=== PATIENT | female | born 1980 | race Caucasian/White ===

== ENCOUNTER 2020-05-12 13:38 | Emergency (ER) | payer OTHER, SELFPAY ==
--- NOTE | ~2020-05-12 | US_ITS ---
EXAMINATION: US pelvic complete w TV EXAM DATE: 05/12/2020 15:40 INDICATION: Heavy vaginal bleeding, cramping. TECHNIQUE: Pelvic transabdominal and transvaginal sonogram was performed. There are multiple graysca le and Doppler images available for interpretation. Comparison is made to prior examination from 10/17. FINDINGS: Uterus measures 6.5 x 4.1 x 4.5 cmwith a focal anterior myometrial region probably fibroid measuring 2 cm, and another anterior pedunculated fibroid measuring 2.5 cm. Endometrial stripe measu res 3 mm, within normal limits. There is no free pelvic fluid. Right adnexa: The ovary measures 1.6 x 0.9 x 1.3 cm and is morphologically normal. Ovarian vascular f low confirmed. Left adnexa: The ovary measures 1.4 x 1.4 x 1.7 cm and is morphologically normal. Ovarian vascular fl ow confirmed. IMPRESSION: 1. Fibroids. Reviewed, dictated and finalized at location B. IMPRESSION: 1. Fibroids.
[2020-05-12 13:50] VITALS: BP 152/92; PULSE 108; RESP 16; TEMP 36.8; O2SAT 98
--- NOTE | 2020-05-12 13:53 | ED.GENADULT ---
HPI - General Adult General Chief complaint: Vaginal Bleeding Stated complaint: vag bleed Time Seen by Provider: 05/12/20 13:53 Source: patient and family Mode of arrival: ambulatory Limitations: no limitations History of Present Illness HPI narrative: Patient is a 40-year-old female who presents for evaluation of pelvic pain and vaginal bleeding. Patient reports heavy vaginal bleeding since 3 AM this morning, she is soaking through 1 pad or 1 have a tampon approximately every half an hour to an hour consecutively for several hours. Patient denies any syncope, lightheadedness or dizziness. She states she feels slightly weak and does have a history of anemia. Patient denies recent intercourse, no history of . She typically has been getting Depo-Provera shots every 3 to 6 months to help with spotting that was refractory to treatment with oral contraceptives, she is due for the next Depo shot on Friday. Patient spoke with Dr. Manzanares's office who referred her to this facility. Patient denies any dysuria. She reports cramping lower pelvic pain which is moderate to severe in nature at times. Pt with hx of fibroids and fibroidectomy. Related Data Allergies Allergy/AdvReac Type Severity Reaction Status Date / Time Penicillins Allergy Mild Rash Verified 05/12/20 14:42 Sulfa (Sulfonamide Allergy Mild Rash Verified 05/12/20 14:42 Antibiotics) ciprofloxacin Allergy Unknown Rash Verified 05/12/20 14:42 red food color AdvReac Mild Nausea and Uncoded 05/12/20 14:42 Vomiting Review of Systems Review of Systems: Narrative: CONSTITUTIONAL: Denies fever, chills, or sweats. ENT: Denies rhinorrhea, congestion CARDIOVASCULAR: Denies chest pain RESPIRATORY: Denies cough or dyspnea. GASTROINTESTINAL: Reports pelvic pain, denies nausea, denies diarrhea GENITOURINARY: Denies dysuria or hematuria. Reports vaginal bleeding SKIN: Denies rash or itching. MUSCULOSKELETAL: Denies back pain, joint pain, or myalgia. NEUROLOGIC: Denies headache, numbness, or weakness. [facility] Past Medical History Medical History (Updated 05/12/20 @ 16:51 by Sowmya Giron MD) Anxiety Depression Fibroids Menorrhagia Surgical History Surgical History (Updated 05/12/20 @ 14:43 by Sowmya Giron MD) History of gastric bypass Social History Social History (Updated 05/12/20 @ 14:44 by Sowmya Giron MD) Smoking status: Never smoker Alcohol use details: social Substance use: never Gender identity (if verbalized by the patient): Female Exam Narrative: Exam Narrative: GENERAL: Awake, alert, conversant HEAD: Normocephalic, atraumatic. EYES: PERRLA and EOMI. ENT: Nares clear, no rhinorrhea or epistaxis. Mucous membranes moist. NECK: Supple. CHEST: No respiratory distress, breathing even and non labored HEART: Regular rate, sinus rhythm ABDOMEN:Non distended, pelvic tenderness to palpation, no guarding or rebound : Labia majora and minora normal without lesions. Vagina scant blood, no large blood clots, no brisk bleeding. No cervical motion tenderness. No adnexal tenderness or fullness bilaterally. No discharge present. EXTREMITIES: Normal range of motion. No edema. SKIN: Warm, dry, no rash. NEURO:No focal deficits. Alert and oriented x3 Course Vital Signs Vital signs: Vital Signs Temperature 36.8 C 05/12/20 13:50 Pulse Rate 108 H 05/12/20 13:50 Respiratory Rate 16 05/12/20 13:50 Blood Pressure 152/92 H 05/12/20 13:50 Pulse Oximetry 98 05/12/20 13:50 Temperature 36.8 C 05/12/20 13:50 Pulse Rate 73 05/12/20 17:01 Respiratory Rate 18 05/12/20 17:01 Blood Pressure 143/96 H 05/12/20 17:01 Pulse Oximetry 99 05/12/20 17:01 Medical Decision Making MDM Narrative Medical decision making narrative: Pt presented to the ED for evaluation of vaginal bleeding and pelvic pain. At time of assessment, abcs intact and vital signs stable. Pt with pelvic tenderness on exam, however pelvic exam is paige
[2020-05-12] MEDS: MORPHINE SULFATE 2 MG/ML INJ IV PUSH (14:53)
[2020-05-12] MEDS: ONDANSETRON INJ 4 MG/2 ML VIAL IV PUSH (14:54)
[2020-05-12 14:55] LABS: Basophils Absolute Auto 0.1 K/mm3 (0.0-0.1); Basophils Percent Auto 0.9 % (0.2-1.2); Eosinophils Absolute Auto 0.1 K/mm3 (0-0.3); Eosinophils Percent Auto 0.9 % (0-4.4); Hemoglobin 13.4 g/dL (12.0-15.0); Immature Granulocyte Absolute 0.01 K/mm3 (0.00-0.031); Immature Granulocyte Percent A 0.1 % (0-0.5); Lymphocytes Absolute Auto 2.88 K/mm3 (0.9-3.2); Mean Corpuscular HGB Conc 33.5 g/dl (32-36); Mean Corpuscular Hemoglobin 30.9 pg (26-34); Mean Corpuscular Volume 92.2 fl (80-100); Mean Platelet Volume 9.2 fl (7.4-10.4); Monocytes Absolute Auto 0.3 K/mm3 (0.1-0.6); Monocytes Percent Auto 4.8 % (2.6-8.5); Neutrophils Absolute Auto 3.5 K/mm3 (1.3-6.7); Neutrophils Percent Auto 51.3 % (45.5-73.1); Platelet Count Result 336 k/mm3 (150-375); Red Blood Count 4.34 M/mm3 (4.2-5.4); Red Cell Distribution Width 12.2 % (11.5-14.5); White Blood Count 6.9 K/mm3 (4.5-10.0)
[2020-05-12 15:00] LABS: Prothrombin Time 12.9 Seconds (11.1-14.7)
[2020-05-12 15:02] LABS: Alanine Aminotransferase 52 U/L (4-35); Albumin Level 4.5 g/dL (3.5-5.1); Alkaline Phosphatase 70 U/L (38-126); Aspartate Amino Transferase 45 U/L (14-36); Bilirubin,Total 0.6 mg/dL (0.2-1.3); Blood Urea Nitrogen 12 mg/dL (7-17); Calcium 9.4 mg/dL (8.4-10.2); Carbon Dioxide 24 mmol/L (22-30); Chloride 106 mmol/L (98-107); Estimated CRCL calculation 87 ml/min; Estimated Glomerular Filt Rate > 60; Glucose 98 mg/dL (65-105); Potassium 3.4 mmol/L (3.4-5.0); Sodium 136 mmol/L (137-145)
[2020-05-12 15:57] VITALS: BP 132/86; PULSE 57
[2020-05-12 15:58] VITALS: BP 136/101; BP 143/81; PULSE 57; PULSE 59
[2020-05-12 17:01] VITALS: BP 143/96; PULSE 73; RESP 18; O2SAT 99
[2020-05-12 17:06] LABS: Add Urine Microscopic? YES; Appearance Urine Clear (Clear); Bilirubin Urine Negative (Negative); Blood Urine 1+ (Negative); Color Urine Yellow (Yellow); Glucose Urine UA Negative (Negative); Ketones Urine 1+ mg/dL (Negative); Leukocyte Esterase Ur Negative LEU/UL (Negative); Nitrate Urine Negative (Negative); Protein Urine Negative (Negative); RBC Urine 0-2 /hpf (0-2); Squamous Epithelial Cell Urine Rare /hpf (Few); Urobilinogen Urine Negative mg/dL (<2.0); WBC Urine 0-3 /hpf
[2020-05-12 17:07] LABS: Specific Grav Ur 1.034 (1.001-1.035)
== END 2020-05-12 17:14 | disposition home or self-care (01) ==
PROVIDERS: Emergency Provider Emergency Medicine; PCP Obstetrics & Gynecology Gynecology
DX: N93.9 Abnormal uterine and vaginal bleeding, unspecified (principal); D25.9 Leiomyoma of uterus, unspecified; Z98.84 Bariatric surgery status
CPT/HCPCS: 36415; 76830; 76856; 80053; 81001; 81025; 85025; 85610; 85730; 86850; 86900; 86901; 87070; 87491; 87591; 87808; 96365; 96375; 99284; A9270; J0131; J2270; J2405

== ENCOUNTER 2020-08-06 13:14 | Emergency (ER) | payer OTHER, SELFPAY ==
--- NOTE | ~2020-08-06 | XR_ITS ---
XR shoulder RT min 2V DATE: 08/06/2020 14:00 INDICATION: Right shoulder lifting injury TECHNIQUE: 4 views COMPARISON: None FINDINGS: No fracture or dislocation, periosteal reaction or bone destruction or abnormal soft tissue calcification. Normal alignment at the acromioclavicular and glenohumeral joints. IMPRESSION: Negative Reviewed, dictated and finalized at location A. IMPRESSION: Negative
[2020-08-06 13:32] VITALS: BP 123/78; PULSE 124; RESP 16; TEMP 37.2; O2SAT 99
--- NOTE | 2020-08-06 13:40 | ED.UPPEXIN ---
HPI - Extremity Injury (Upper) General Chief Complaint: Extremity Injury, Upper Stated Complaint: RIGHT SHOULDER PAIN Time Seen by Provider: 08/06/20 13:40 Source: patient and RN notes reviewed Mode of arrival: ambulatory Limitations: no limitations History of Present Illness HPI narrative: 40-year-old female presents with concern for right shoulder pain. 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 Reports she saw a telemedicine doctor through her employer who prescribed her muscle relaxers. Reports no relief from the muscle relaxers. Reports she has been taking 1 Aleve daily with no relief. complaint: injury to: right and shoulder Related Data Home Medications Medication Instructions Recorded Confirmed clonazepam 1 mg PO DAILY 08/06/20 08/06/20 cyclobenzaprine 10 mg PO TID 08/06/20 08/06/20 naltrexone 50 mg PO DIRECTED 08/06/20 08/06/20 Allergies Allergy/AdvReac Type Severity Reaction Status Date / Time Penicillins Allergy Mild Rash Verified 08/06/20 13:28 Sulfa (Sulfonamide Allergy Mild Rash Verified 08/06/20 13:28 Antibiotics) ciprofloxacin Allergy Unknown Rash Verified 08/06/20 13:28 red food color AdvReac Mild Nausea and Uncoded 08/06/20 13:28 Vomiting Review of Systems Review of Systems: Narrative: CONSTITUTIONAL: Denies malaise, chills, sweats, or fever. CARDIOVASCULAR: Denies chest pain, palpitations, or edema. RESPIRATORY: Denies cough or dyspnea. SKIN: Denies bruising, redness MUSCULOSKELETAL: Reports right shoulder pain, decreased range of motion, weakness NEUROLOGIC: Denies numbness All systems reviewed & are unremarkable except as noted in HPI and below PMFSH Past Medical History Medical History (Updated 08/06/20 @ 14:06 by Niyah Dykes NP) Anxiety Depression Fibroids Menorrhagia Surgical History Surgical History (Updated 05/12/20 @ 14:43 by Sowmya Giron MD) History of gastric bypass Social History Social History (Updated 05/12/20 @ 14:44 by Sowmya Giron MD) Smoking status: Never smoker Substance use: never Gender identity (if verbalized by the patient): Female Comments At time of signature, agree with nursing past medical, surgical, social and family history. There is no relevant family history pertinent to the presenting complaint Exam Narrative: Exam Narrative: GENERAL: Well-appearing, well-nourished, and in no acute distress. HEAD: Normocephalic, atraumatic. EYES: PERRLA, conjunctivae clear NECK: Supple. CHEST: Speaks in full sentences. No respiratory distress. HEART: Regular rate and rhythm. Normal and equal peripheral pulses. EXTREMITIES: Right shoulder, upper arm has normal sensation, decreased range of motion. No edema or ecchymosis. 3/5 strength with shoulder abduction and abduction. Normal sensation with sensitivity to light touch and pain. No open wounds, no skin tenting, no devitalized tissue or atrophy, no trophic changes, no obvious deformity, alignment normal, no point tenderness, nearby joints and structures intact. Distal pulses palpable and equal bilaterally, skin warm, dry, pink. Capillary refill less than 3 seconds. SKIN: Warm, dry, no rash. NEURO: Alert and oriented x3. PSYCH: Normal mood and affect Course Course Emergency Course: Patient is aware of diagnosis, understands and agrees to treatment plan. Anticipatory guidance given. Patient agrees to follow-up as directed and is aware of reasons to seek care at the emergency department. Portions of this record may have been created with voice recognition software Vital Signs Vital signs: Vital Signs Temperature 98.9 F 08/06/20 13:32 Pulse Rate 124 H 08/06/20 13:32 Respiratory Rate 16 08/06/20 13:32 Blood Pressure 123/78 08/06/20 13:32 Pulse Oximetry 99 08/06/20 13:32 Temperature 98.9 F 08/06/20 13:32 Pulse Rate 124 H 08/06/20 13:32 Respiratory Rate 16
== END 2020-08-06 14:10 | disposition home or self-care (01) ==
PROVIDERS: Emergency Provider Nurse Practitioner
DX: S49.91XD Unspecified injury of right shoulder and upper arm, subsequent encounter (principal); X50.0XXD Overexertion from strenuous movement or load, subsequent encounter; F41.9 Anxiety disorder, unspecified; Z98.84 Bariatric surgery status
CPT/HCPCS: 73030; 99213; A4565; G0463

== ENCOUNTER 2020-09-09 16:49 | Emergency (ER) | payer OTHER, SELFPAY ==
[2020-09-09] VITALS (10 sets, daily range): BP systolic 108–149; BP diastolic 71–98; PULSE 86–108; RESP 12–28; TEMP 36.1; O2SAT 97–100
--- NOTE | ~2020-09-09 | CT_ITS ---
EXAMINATION: CT abdomen pelvis w con EXAM DATE: 09/09/2020 17:41 INDICATION: Left-sided abdominal pain, history gastric bypass with complication. TECHNIQUE: Spiral CT of the abdomen and pelvis was performed following intravenous injection of 100 m L Omnipaque 350. Axial, coronal and sagittal images were reviewed. The dose-length product (DLP) fo r this examination was 380.58 mGy-cm. The exposure was tailored according to patient size (auto mA e xposure control), and iterative reconstruction (ASIR) was used as additional dose reduction technique . There is no prior study for comparison. FINDINGS: There are surgical changes from gastric bypass surgery. There is edema of the jejunal wall at the gastric bypass anastomosis, along with scattered small foci of extraluminal gas adjacent to th is and also below the diaphragm. Small amount of perihepatic fluid and small amount of free fluid in the pelvis. There is some generalized abdominal edema, most pronounced in the left upper quadrant. The liver, spleen, adrenal glands and pancreas are unremarkable. Gallbladder not identified, patient likely has had cholecystectomy. Portal and splenic veins are patent. Kidneys enhance symmetrically . There is no hydronephrosis. Fibroid uterus. The bladder is unremarkable. There is no retroperi toneal or pelvic lymphadenopathy. The appendix is normal. There is expected amount of colonic stool. The heart is normal in size. Th ere are no pericardial or pleural effusions. The lung bases are unremarkable. There are no osteobla stic or osteolytic lesions identified. IMPRESSION: Jejunal edema at the gastric bypass anastomosis site, with scattered small foci of free i ntraperitoneal air adjacent to this and below the diaphragm. Appearance is suspicious for dehiscence of anastomosis. Surgical consult. I discussed the urgent findings with emergency room physician Dr. Juan at 09/09/2020 17:55 CDT. Reviewed, dictated and finalized at location A. IMPRESSION: Jejunal edema at the gastric bypass anastomosis site, with scattere d small foci of free intraperitoneal air adjacent to this and below the diaphra gm. Appearance is suspicious for dehiscence of anastomosis. Surgical consult. I discussed the urgent findings with emergency room physician Dr. Juan at 08/18 17:55 CDT.
--- NOTE | 2020-09-09 17:06 | ED.ABDPAIN ---
HPI - Abdominal Pain General Chief Complaint: Abdominal Pain Stated Complaint: left side pain Time Seen by Provider: 09/09/20 16:52 Source: patient Mode of arrival: ambulatory Limitations: no limitations History of Present Illness HPI narrative: Patient is a 40-year-old female who presents with a days duration of pain from the epigastric up into the chest with nausea 2 episodes of emesis has not taken anything for her symptoms history of bypass gastric surgery with several surgeries following the initial due to complications. Patient denies hematemesis rectal bleeding diarrhea urinary symptoms vaginal complaints or URI symptoms presents uncomfortable but in no distress has not taken anything for symptoms presents per private vehicle Related Data Home Medications Medication Instructions Recorded Confirmed clonazepam 1 mg PO DAILY 08/06/20 08/06/20 bupropion HCl (smoking deter) 150 mg PO BID 09/09/20 Allergies Allergy/AdvReac Type Severity Reaction Status Date / Time Penicillins Allergy Mild Rash Verified 09/09/20 16:57 Sulfa (Sulfonamide Allergy Mild Rash Verified 09/09/20 16:57 Antibiotics) ciprofloxacin Allergy Unknown Rash Verified 09/09/20 16:57 red (food color) AdvReac Mild Nausea and Verified 09/09/20 17:46 Vomiting Review of Systems Review of Systems: All systems reviewed & are unremarkable except as noted in HPI and below PMFSH Past Medical History Medical History Anxiety Depression Fibroids Menorrhagia Surgical History Surgical History History of gastric bypass Social History Social History Smoking status: Never smoker Substance use: never Gender identity (if verbalized by the patient): Female Exam Narrative: Exam Narrative: GENERAL: Well-appearing, well-nourished, and in no acute distress. HEAD: Normocephalic, atraumatic. EYES: PERRLA and EOMI. ENT: Nares clear, no rhinorrhea or epistaxis. Mucous membranes moist. CHEST: Clear to auscultation. No respiratory distress. No wheezes rales or rhonchi HEART: Regular rate and rhythm. No murmur heard. Normal peripheral pulses. ABDOMEN: Soft, generalized tenderness, nondistended, normal active bowel sounds. EXTREMITIES: Normal range of motion. No edema. SKIN: Warm, dry, no rash. NEURO: No focal deficits. Alert and oriented x3. PSYCH: Normal mood and affect. Course Course Emergency Course: Patient in the ER has been hydrated given pain management nausea management as well as antibiotics will be transferred to [facility] for evaluation by bariatric surgeon patient has remained hemodynamically stable in the emergency department is felt appropriate for transfer Consultations Consultation #1: Discussed case with bariatric surgeon at [facility] who has accepted the patient would like the patient transferred to the ER with Dr. [facility] who has accepted the patient. Date: 09/09/20 Time: 20:47 Vital Signs Vital signs: Vital Signs Temperature 96.9 F L 09/09/20 16:51 Pulse Rate 96 09/09/20 16:51 Respiratory Rate 20 09/09/20 16:51 Blood Pressure 124/72 09/09/20 16:51 Pulse Oximetry 98 09/09/20 16:51 Temperature 96.9 F L 09/09/20 18:40 Pulse Rate 94 09/09/20 20:04 Respiratory Rate 16 09/09/20 20:04 Blood Pressure 109/71 09/09/20 20:04 Pulse Oximetry 97 09/09/20 20:04 MDM - Abdominal Pain MDM Narrative Medical decision making narrative: Patient with complication of her bariatric surgery will be transferred to bariatric surgeon at [facility] patient hemodynamically stable has been hydrated given IV antibiotics and other therapies resting in the room in no distress agreeing to plan Lab Data Result diagrams: 09/09/20 17:02 09/09/20 17:02 Labs: Lab Results 09/09/20 09/09/2009/09
[2020-09-09 17:09] LABS: Basophils Absolute Auto 0.1 K/mm3 (0.0-0.1); Eosinophils Absolute Auto 0.2 K/mm3 (0-0.3); Eosinophils Percent Auto 2.9 % (0-4.4); Hematocrit 40.1 % (37.0-47.0); Hemoglobin 13.2 g/dL (12.0-15.0); Immature Granulocyte Absolute 0.01 K/mm3 (0.00-0.031); Immature Granulocyte Percent A 0.2 % (0-0.5); Lymphocytes Absolute Auto 2.88 K/mm3 (0.9-3.2); Lymphocytes Percent Auto 46.3 % (18.3-44.2); Mean Corpuscular HGB Conc 32.9 g/dl (32-36); Mean Corpuscular Hemoglobin 29.8 pg (26-34); Mean Corpuscular Volume 90.5 fl (80-100); Mean Platelet Volume 8.8 fl (7.4-10.4); Monocytes Absolute Auto 0.4 K/mm3 (0.1-0.6); Monocytes Percent Auto 6.1 % (2.6-8.5); Neutrophils Absolute Auto 2.7 K/mm3 (1.3-6.7); Neutrophils Percent Auto 43.5 % (45.5-73.1); Platelet Count Result 358 k/mm3 (150-375); Red Blood Count 4.43 M/mm3 (4.2-5.4); Red Cell Distribution Width 12.4 % (11.5-14.5); White Blood Count 6.2 K/mm3 (4.5-10.0)
--- NOTE | 2020-09-09 17:15 | PC.NURSE ---
Patient unable to urinate at this time, refusing straight cath. States will try to urinate after receiving IV fluids.
[2020-09-09 17:21] LABS: Alanine Aminotransferase 17 U/L (4-35); Albumin Level 4.5 g/dL (3.5-5.1); Alkaline Phosphatase 45 U/L (38-126); Anion Gap 11 mmol/L (8-16); Aspartate Amino Transferase 23 U/L (14-36); Bilirubin,Total 0.2 mg/dL (0.2-1.3); Blood Urea Nitrogen 8 mg/dL (7-17); Carbon Dioxide 27 mmol/L (22-30); Chloride 103 mmol/L (98-107); Estimated CRCL calculation 87 ml/min; Estimated Glomerular Filt Rate > 60; Glucose 119 mg/dL (65-105); Lipase 148 U/L (23-300); Potassium 4.2 mmol/L (3.4-5.0); Sodium 141 mmol/L (137-145)
[2020-09-09] MEDS: HYOSCYAMINE SULFATE 0.125 MG TABLET PO (17:21)
[2020-09-09] MEDS: FAMOTIDINE 20 MG/2 ML VIAL IV PUSH (17:21)
[2020-09-09] MEDS: ONDANSETRON INJ 4 MG/2 ML VIAL IV PUSH ×2 (17:21→20:49)
[2020-09-09] MEDS: SODIUM CHLORIDE 0.9% IV 1,000 ML 999 ML IV CONT ×2 (17:21→20:49)
[2020-09-09] MEDS: IBUPROFEN IV 800 MG/200 ML 800 MG/200 ML BAG 400 MG IVPB (17:50)
[2020-09-09] MEDS: MORPHINE SULFATE (*CRX) 4 MG/ML INJ IV PUSH ×3 (18:10→20:48)
[2020-09-09] MEDS: PANTOPRAZOLE SODIUM IV 40 MG VIAL IV PUSH (18:46)
[2020-09-09 19:24] LABS: Add Urine Microscopic? NO; Appearance Urine Clear (Clear); Bilirubin Urine Negative (Negative); Blood Urine Negative (Negative); Color Urine Straw (Yellow); Glucose Urine UA Negative (Negative); Ketones Urine Negative (Negative); Leukocyte Esterase Ur Negative LEU/UL (Negative); Nitrate Urine Negative (Negative); Protein Urine Negative (Negative); Urobilinogen Urine Negative mg/dL (<2.0)
[2020-09-09 19:36] LABS: Specific Grav Ur 1.038 (1.001-1.035)
[2020-09-09] MEDS: ERTAPENEM 1 GM/NS 50 ML 1 GM/50 ML BAG IVPB (20:49)
--- NOTE | 2020-09-09 21:50 | PC.NURSE ---
Called [facility] to request transport. ETA [phone]
[2020-09-09] MEDS: HYDROmorphone HCL INJ (*CRX) 1 MG/ML SYR IV PUSH (22:06)
== END 2020-09-09 22:42 | disposition short-term general hospital (02) ==
PROVIDERS: Emergency Medicine Emergency Medical Services; Emergency Provider Emergency Medicine
DX: T81.32XA Disruption of internal operation (surgical) wound, not elsewhere classified, initial encounter (principal); K91.89 Other postprocedural complications and disorders of digestive system; Z98.84 Bariatric surgery status; F41.9 Anxiety disorder, unspecified; F32.9 Major depressive disorder, single episode, unspecified
CPT/HCPCS: 36415; 74177; 80053; 81003; 81025; 83690; 85025; 96365; 96367; 96375; 96376; 99285; A9270; C9113; J0131; J1170; J1335; J1741; J2270; J2405; J7030; Q9967

== ENCOUNTER 2020-09-19 12:37 | Outpatient (CLI) | payer OTHER, SELFPAY ==
--- NOTE | ~2020-09-19 | MR_ITS ---
EXAMINATION: MR brain/brain stem wo con EXAM DATE: 09/19/2020 13:44 INDICATION: Cognitive impairment. TECHNIQUE: Magnetic resonance imaging (MRI) of the brain/brain stem obtained without contrast. Sagitt al T1, axial diffusion, gradient echo (T2*), T1, T2, FLAIR sequences obtained. Correlation is made t o head CT 2017. FINDINGS: There are no areas of restricted diffusion to suggest acute infarction. There is no acute hemorrhage seen on the T2*, a hemosiderin sensitive sequence. No intraparenchymal brain mass. The ve ntricles are normal in size. There are no extra-axial collections. Flow voids are seen in the cereb ral arteries on the T2-weighted sequences consistent with their expected patency. The orbits are unr emarkable. Soft tissue is unremarkable. IMPRESSION: 1. Normal brain MRI examination. Reviewed, dictated and finalized at location B. [employer]
== END 2020-09-19 12:38 | disposition home or self-care (01) ==
PROVIDERS: Visit Provider Nurse Practitioner Family
DX: G31.84 Mild cognitive impairment of uncertain or unknown etiology (principal); R63.1 Polydipsia; Z86.39 Personal history of other endocrine, nutritional and metabolic disease
CPT/HCPCS: 70551

== ENCOUNTER 2021-09-17 01:40 | Day surgery (SDC) | payer OTHER, SELFPAY ==
[2021-09-06 14:08] VITALS: BMI 23.3
--- NOTE | 2021-09-17 07:31 | WPDHPUPDATE1 ---
History and Physical Update Update Date/Time: 09/17/21 07:31 History and Physical has been reviewed, including an updated exam of the patient. There are NO changes in the patient's condition. Risks, benefits, and alternatives have been discussed and questions answered. Patient agrees to proceed with procedure.
--- NOTE | 2021-09-17 07:31 | PM.HPGS ---
History of Present Illness History of Present Illness Consent: Risks, benefits, and alternatives have been discussed and questions answered. Patient agrees to proceed with procedure. Chief complaint: YESSY 1 Narrative: Niyah Shay is a 41 year old female with recent Pap smear atypical squamous cells cannot exclude high-grade squamous intraepithelial lesion and normal colposcopy. Patient has a history of mild dysplasia on biopsy in May of 2021. Due to the Pap colposcopy discrepancy and persistent abnormal Pap tests the patient has elected to proceed with LEEP conization with top-hat. Risk of persistent disease and recurrent disease postop was reviewed. Procedure risks infection, bleeding, and injury to surrounding tissue was reviewed. Patient voiced understanding and agrees to proceed. Review of Systems Review of Systems: not repeated day of surgery; patient states no changes in status Constitutional: Constitutional: Reports fatigue Musculoskeletal: Musculoskeletal: Reports arthralgias PMFSH Past Medical History Medical History (Updated 09/17/21 @ 07:39 by Annalise Manzanares MD) Anxiety Depression Fibroids Fibromyalgia Perforated ulcer stomach 2019 Surgical History Surgical History (Updated 09/17/21 @ 07:37 by Annalise Manzanares MD) History of gastric bypass Hx laparoscopic cholecystectomy S/P myomectomy Abdominal 2012 Social History Social History Years smoked: 15 Smoking status: Former smoker Tobacco type: cigarettes and e-cigarettes/vaping Second hand tobacco smoke exposure: No Additional smoking assessment comments: currently vapes w/ nicotine Alcohol intake: current Drinks per week: 2 Alcohol use details: beer or wine; occassionally Substance use: never Substance use type: does not use Living arrangements: other Additional living arrangements comments: significant other Gender identity (if verbalized by the patient): Female Spiritual care concerns: No Meds Home Medications and Allergies Home Medications Medication Instructions Recorded Confirmed Type clonazepam 1 mg PO DAILY 08/06/20 09/06/21 History acetaminophen [Tylenol] 650 mg PO Q4-6H PRN 09/06/21 09/06/21 History bupropion HCl 150 mg PO BID 09/06/21 09/06/21 History medroxyprogesterone 150 mg IM [id number] 09/06/21 09/06/21 History ybuhcykcxxbb-kez-eabq-FA-vit K 1 cap PO DAILY 09/06/21 09/06/21 History [Bariatric Multivitamins] omeprazole 20 mg PO BID 09/06/21 09/06/21 History sertraline 100 mg PO DAILY 09/06/21 09/06/21 History Allergies Allergy/AdvReac Type Severity Reaction Status Date / Time ciprofloxacin Allergy Mild Rash Verified 09/06/21 14:02 Penicillins Allergy Mild Rash Verified 09/06/21 14:02 Sulfa (Sulfonamide Allergy Mild Rash Verified 09/06/21 14:02 Antibiotics) red (food color) AdvReac Mild Nausea and Verified 09/06/21 14:02 Vomiting Exam Const: General: comfortable and no acute distress Nutritional Appearance: average body habitus : External Female Exam: normal external appearance Speculum Exam - Vagina: normal appearance of the vagina Speculum Exam - Cervix: normal appearance of the cervix (Aceto-white epithelium from 6 to 7 o'clock) Bimanual exam- vagina & uterus: normal bimanual exam Assessment and Plan Assessment and plan (1) ASCUS with positive high risk HPV: Status: Acute Assessment and Plan: Plan to proceed with LEEP conization with top hat
[2021-09-17 09:18] LABS: Hematocrit 36.7 % (37.0-47.0); Hemoglobin 11.9 g/dL (12.0-15.0)
[2021-09-17 09:25] VITALS: BP 118/80; PULSE 73; RESP 14; TEMP 37.1; O2SAT 100; BMI 24.9
[2021-09-17] MEDS: ACETAMINOPHEN 500 MG TABLET 1000 MG PO (09:40)
[2021-09-17] MEDS: MIDAZOLAM HCL (*CRX) 2 MG/2 ML VIAL IV PUSH (09:40)
--- NOTE | 2021-09-17 09:42 | WPDANESEPPF ---
Anes - Initial Pre Proc Eval Procedure: Operation Date: 09/17/21 10:30 Proposed Procedures p Loop Electrical Excision Procedure With Top Hat - Annalise Manzanares MD Date/Time: 09/17/21 09:42 Surgeon: Annalise Manzanares MD Pre Op Diagnosis: YESSY 1 Patient Data Age: 41 Gender: F Height: 1.68 m Weight: 70 kg Last Vital Signs Temp 37.1 C 09/17/21 09:25 Pulse 73 09/17/21 09:25 Resp 14 09/17/21 09:25 BP 118/80 09/17/21 09:25 Pulse Ox 100 09/17/21 09:25 Allergies Allergy/AdvReac Type Severity Reaction Status Date / Time ciprofloxacin Allergy Mild Rash Verified 09/17/21 08:55 Penicillins Allergy Mild Rash Verified 09/17/21 08:55 Sulfa (Sulfonamide Allergy Mild Rash Verified 09/17/21 08:55 Antibiotics) red (food color) AdvReac Mild Nausea and Verified 09/17/21 08:55 Vomiting Home Medications Medication Instructions Recorded Confirmed Type clonazepam 1 mg PO DAILY 08/06/20 09/06/21 History acetaminophen [Tylenol] 650 mg PO Q4-6H PRN 09/06/21 09/06/21 History bupropion HCl 150 mg PO BID 09/06/21 09/06/21 History medroxyprogesterone 150 mg IM [id number] 09/06/21 09/06/21 History naxnctxblmxz-tti-cxlw-FA-vit K 1 cap PO DAILY 09/06/21 09/06/21 History [Bariatric Multivitamins] omeprazole 20 mg PO BID 09/06/21 09/06/21 History sertraline 100 mg PO DAILY 09/06/21 09/06/21 History Laboratory Tests 09/17/21 09:13 Hgb 11.9 g/dL L g/dL (12.0-15.0) Hct 36.7 % L % (37.0-47.0) Patient hx anesthesia problems: none Family hx anesthesia problems: none Results Review: All pre-operative results and documents have been reviewed as part of the pre-operative evaluation. [facility] Past Medical History Medical History Anxiety Depression Fibroids Fibromyalgia Perforated ulcer stomach 2019 Surgical History Surgical History History of gastric bypass Hx laparoscopic cholecystectomy S/P myomectomy Abdominal 2013 Social History Social History Years smoked: 15 Smoking status: Former smoker Tobacco type: cigarettes and e-cigarettes/vaping Second hand tobacco smoke exposure: No Additional smoking assessment comments: currently vapes w/ nicotine Alcohol intake: current Drinks per week: 2 Alcohol use details: beer or wine; occassionally Substance use: never Substance use type: does not use Living arrangements: other Additional living arrangements comments: significant other Gender identity (if verbalized by the patient): Female Spiritual care concerns: No Anes - Eval Final PreProcedure Day of Procedure 09/17/21 09:42 Patient weight: normal Heart: regular rate and rhythm Lungs: clear to auscultation Airway: Mallampati scale class II Neurological: alert and oriented Last oral intake: >/= 8 hours ASA classification: III Emergent: no Anesthetic plan: proceed Anesthesia type and monitoring: general GIVS and standard monitoring Results Review: All pre-operative results and documents have been reviewed as part of the pre-operative evaluation. Informed Consent: The patient's anesthetic plan and its attendant risks and benefits were discussed with the patient/family/POA. Questions were solicited and answers provided to the satisfaction of the patient/family/POA.
[2021-09-17] MEDS: LACTATED RINGERS 1,000 ML 30 ML IV CONT (09:48)
[2021-09-17] MEDS: LIDO 1%/EPINEPHRINE/PF 1:200,000 30 ML VIAL 10 ML XX (10:50)
--- NOTE | 2021-09-17 10:58 | W.PM.PROC2 ---
Procedure Note - Detailed Date of Procedure 09/17/21 Pre-op Diagnosis ASC-H pap with normal colposcopy pap/colposcopy discrepency Post-op Diagnosis same Procedure Performed LEEP with a top hat Surgeon Annalise Manzanares MD Anesthesia MAC and local Findings No abnormalities by colposcopy Description of Procedure The patient was taken to the operating room and placed under anesthesia in the dorsal lithotomy position. Coated bivalve speculum was placed in the vagina and the cervix is bathed in acetic acid. The cervix was inspected with the microscope and the green filter and no abnormalities are noted. The cervix is injected with 1% lidocaine with epinephrine in each quadrant. The 2x1cm loop was then used to perform a single pass LEEP with 60 w of cutting power. The lateral aspects of the loop collapsed inward making the endocervix not visible. A wider 2x1cm loop was taken and the smaller loop was placed within it to keep the anatomical position correct. These are sutured together at 12:00 p.m.. Now that the endocervix is visible a 1x1cm loop is used to perform a single pass top hat. There is an additional small piece of cervix that fell into the speculum and is marked miscellaneous cervix. Monsel's solution is placed on the cone bed and the patient awakened from anesthesia. She was taken to recovery in stable condition. Sponge, needle, and instrument counts are correct. Estimated Blood Loss 5 Drains No Packing No Pathology yes (LEEP marked at 12:00 p.m. composed of 2 components (see above); top hat marked at 12) Complications No immediate complications Condition stable Disposition PACU
[2021-09-17 11:02] VITALS: BP 103/65; PULSE 71; RESP 16; O2SAT 99
[2021-09-17] MEDS: fentaNYL CITRATE INJ (*CRX) 100 MCG/2 ML VIAL 25 MCG IV PUSH ×4 (11:15→12:10)
[2021-09-17 11:30] VITALS: BP 111/69; PULSE 73
[2021-09-17] MEDS: oxyCODONE HCL (*CRX) 5 MG TAB IR PO (11:41)
[2021-09-17 12:00] VITALS: BP 105/68; PULSE 72
--- NOTE | 2021-09-17 12:17 | SUR.PHASEII ---
Paged Dr. Manzanares since she forgot to call family after procedure. She relayed to me what to to tell them and apologized for not calling them after.
[2021-09-17] MEDS: ONDANSETRON INJ 4 MG/2 ML VIAL IV PUSH (12:27)
[2021-09-17 12:30] VITALS: BP 105/68; PULSE 72; RESP 16
== END 2021-09-17 12:32 | disposition home or self-care (01) ==
PROVIDERS: Anesthesiology; PCP Pediatrics; Visit Provider Obstetrics & Gynecology Gynecology
PROC: 0UBC7ZZ Excision of Cervix, Via Natural or Artificial Opening (ICD-10-PCS; CPT 57522; principal; 2021-09-17 10:30)
DX: N87.0 Mild cervical dysplasia (principal); R87.810 Cervical high risk human papillomavirus (HPV) DNA test positive; F41.8 Other specified anxiety disorders; M79.7 Fibromyalgia; Z87.891 Personal history of nicotine dependence; Z98.84 Bariatric surgery status
CPT/HCPCS: 57522; 36415; 85014; 85018; 88305; A9270; J2250; J2405; J2704; J3010; J7120

== ENCOUNTER 2022-07-29 13:12 | Emergency (ER) | payer OTHER, SELFPAY ==
[2022-07-29 13:27] VITALS: BP 140/88; PULSE 100; RESP 14; TEMP 36.6; O2SAT 100
[2022-07-29 15:07] LABS: Hematocrit 39.1 % (37.0-47.0); Hemoglobin 12.4 g/dL (12.0-15.0); Immature Platelet Fraction Pct 2.1 % (0.9-11.2); Mean Corpuscular HGB Conc 31.7 g/dl (32-36); Mean Corpuscular Hemoglobin 31.4 pg (26-34); Mean Platelet Volume 9.4 fl (7.4-10.4); Platelet Count Result 468 k/mm3 (150-375); Red Blood Count 3.95 M/mm3 (4.2-5.4); White Blood Count 5.5 K/mm3 (4.5-10.0)
[2022-07-29 15:27] LABS: Appearance Urine Clear (Clear); Bilirubin Urine Negative (Negative); Blood Urine Negative (Negative); Color Urine Yellow (Yellow); Glucose Urine UA Negative (Negative); Ketones Urine Negative (Negative); Leukocyte Esterase Ur Negative LEU/UL (Negative); Nitrate Urine Negative (Negative); Protein Urine Negative (Negative); Specific Grav Ur <= 1.005 (1.001-1.035); Urobilinogen Urine 0.2 mg/dL (<2.0)
[2022-07-29 15:30] LABS: Add Urine Microscopic? NO
[2022-07-29 15:40] LABS: Band Neutrophils Percent 1 % (0-6); Lymphocytes Absolute Manual 1.87 K/mm3 (1.1-4.5); Monocytes Absolute Manual 0.33 K/mm3 (0.1-0.90); Monocytes Percent Manual 6 % (3-9); Neutrophils Percent Manual 59 % (46-73); Total Cells Counted 100
[2022-07-29 15:42] VITALS: BP 138/105; PULSE 75; RESP 18
[2022-07-29 15:42] LABS: Platelet Estimate Increased (Adequate)
[2022-07-29 15:43] LABS: Hypochromasia 1+ (NORMAL)
[2022-07-29] MEDS: BELLADONNA ALK/PHENOB ELIX 10 ML, MAG HYDROX/ALUMINUM HYD/SIMETH 30 ML, LIDOCAINE HCL 2... PO (16:35)
[2022-07-29 16:41] LABS: Alanine Aminotransferase 16 U/L (6-35); Albumin Level 4.4 g/dL (3.5-5.1); Alkaline Phosphatase 71 U/L (38-126); Anion Gap 11 mmol/L (8-16); Aspartate Amino Transferase 24 U/L (14-36); Bilirubin,Total 0.3 mg/dL (0.2-1.3); Blood Urea Nitrogen 5 mg/dL (7-17); Calcium 9.3 mg/dL (8.4-10.2); Carbon Dioxide 22 mmol/L (22-30); Chloride 106 mmol/L (98-107); Estimated CRCL calculation 85 ml/min; Estimated Glomerular Filt Rate > 60; Glucose 86 mg/dL (65-110); Lipase 159 U/L (23-300); Potassium 3.3 mmol/L (3.4-5.0); Sodium 139 mmol/L (137-145)
--- NOTE | 2022-07-29 17:12 | ED.NAVMDI ---
HPI - Nausea/Vomiting/Diarrhea General Chief complaint: Nausea/Vomiting/Diarrhea Stated complaint: nausea, vomiting Time Seen by Provider: 07/29/22 15:37 History of Present Illness HPI Narrative: Patient is a 42-year-old female who presents ER with burning epigastric pain going up into her throat. Patient was recently diagnosed with a gastric ulcer and placed on Protonix 40 mg twice daily as well as small misoprostol. She has been taking it for 3 days and is still experiencing discomfort. They gave her the name of a GI physician to follow-up with but she is not scheduled till later in the month. She reports she is having dry heaving. No syncope. No fevers or chills or sweats. She had some constipation earlier in the week and then took a stool softener and started having diarrhea. She thinks she may have had blood in her stool one-point that it was in between bright red and dark black. She is not on blood thinners. She does not take NSAIDs. She has history of gastric bypass surgery and has had a perforated ulcer in the past. Related Data Home Medications Medication Instructions Recorded Confirmed clonazepam 1 mg tablet 1 mg PO DAILY 08/06/20 09/06/21 acetaminophen 325 mg capsule 650 mg PO Q4-6H PRN Pain 09/06/21 09/06/21 (Tylenol) bupropion HCl 150 mg tablet,12 hr 150 mg PO BID 09/06/21 09/06/21 sustained-release medroxyprogesterone 150 mg/mL 150 mg IM [id number] 09/06/21 09/06/21 intramuscular syringe [id number] 45 mg-folic 1 cap PO DAILY 09/06/21 09/06/21 acid 800 mcg-vit K 120 mcg capsule (Bariatric Multivitamins) omeprazole 20 mg capsule,delayed 20 mg PO BID 09/06/21 09/06/21 release sertraline 100 mg tablet 100 mg PO DAILY 09/06/21 09/06/21 Allergies Allergy/AdvReac Type Severity Reaction Status Date / Time ciprofloxacin Allergy Mild Rash Verified 09/17/21 08:55 Penicillins Allergy Mild Rash Verified 09/17/21 08:55 Sulfa (Sulfonamide Allergy Mild Rash Verified 09/17/21 08:55 Antibiotics) red (food color) AdvReac Mild Nausea and Verified 09/17/21 08:55 Vomiting Review of Systems Review of Systems: All systems reviewed & are unremarkable except as noted in HPI and below Constitutional: Constitutional: Denies chills and Denies fever(s) ENT: Denies nasal congestion and Denies sore throat Cardiovascular: Cardiovascular: Denies chest pain, Denies rapid heart rate and Denies radiating jaw, neck or arm pain Respiratory: Respiratory: Denies cough and Denies dyspnea Gastrointestinal: Gastrointestinal: Reports abdominal pain, Reports constipation, Reports heartburn, Reports diarrhea, Reports nausea and Reports vomiting Genitourinary: Genitourinary: Denies nocturia and Denies dysuria [facility] Past Medical History Medical History Anxiety Depression Fibroids Fibromyalgia Perforated ulcer stomach 2019 Surgical History Surgical History History of gastric bypass Hx laparoscopic cholecystectomy S/P myomectomy Abdominal 2013 Social History Social History Years smoked: 15 Smoking status: Former smoker Tobacco type: cigarettes and e-cigarettes/vaping Second hand tobacco smoke exposure: No Additional smoking assessment comments: currently vapes w/ nicotine Alcohol intake: current Drinks per week: 2 Alcohol use details: beer or wine; occassionally Substance use: never Substance use type: does not use Additional living arrangements comments: significant other Gender identity (if verbalized by the patient): Female Spiritual care concerns: No Exam Narrative: GENERAL: Well-appearing, well-nourished, and in no acute distress. HEAD: Normocephalic, atraumatic. CHEST: Clear to auscultation. No respiratory distress. HEART: Regular rate and rhythm. Normal peripheral pulses. ABDOMEN: Soft, nontend
[2022-07-29 17:30] VITALS: BP 147/70; PULSE 78; RESP 18; O2SAT 99
[2022-07-29] MEDS: ALPRAZolam (*CRX) 0.5 MG TABLET PO (17:30)
[2022-07-29 18:20] VITALS: BP 130/92; PULSE 92; RESP 16; TEMP 36.8; O2SAT 100
== END 2022-07-29 18:22 | disposition home or self-care (01) ==
PROVIDERS: Emergency Provider Emergency Medicine; PCP Pediatrics
DX: K21.9 Gastro-esophageal reflux disease without esophagitis (principal); F41.9 Anxiety disorder, unspecified; F32.A Depression, unspecified; M79.7 Fibromyalgia; Z98.84 Bariatric surgery status; F17.290 Nicotine dependence, other tobacco product, uncomplicated
CPT/HCPCS: 36415; 80053; 81003; 81025; 83690; 85025; 85055; 99283; A9270

== ENCOUNTER 2022-12-10 08:35 | Outpatient (CLI) | payer OTHER, SELFPAY ==
[2022-12-10 11:01] LABS: Basophils Absolute Auto 0.1 K/mm3 (0.0-0.1); Basophils Percent Auto 0.7 % (0.2-1.2); Eosinophils Absolute Auto 0.1 K/mm3 (0-0.3); Hematocrit 44.7 % (37.0-47.0); Hemoglobin 14.2 g/dL (12.0-15.0); Immature Granulocyte Absolute 0.01 K/mm3 (0.00-0.031); Immature Granulocyte Percent A 0.1 % (0-0.5); Lymphocytes Absolute Auto 1.77 K/mm3 (0.9-3.2); Lymphocytes Percent Auto 25.8 % (18.3-44.2); Mean Corpuscular HGB Conc 31.8 g/dl (32-36); Mean Corpuscular Hemoglobin 29.5 pg (26-34); Mean Corpuscular Volume 92.9 fl (80-100); Mean Platelet Volume 9.9 fl (7.4-10.4); Monocytes Absolute Auto 0.4 K/mm3 (0.1-0.6); Monocytes Percent Auto 5.8 % (2.6-8.5); Neutrophils Absolute Auto 4.6 K/mm3 (1.3-6.7); Neutrophils Percent Auto 66.6 % (45.5-73.1); Platelet Count Result 349 k/mm3 (150-375); Red Blood Count 4.81 M/mm3 (4.2-5.4); White Blood Count 6.9 K/mm3 (4.5-10.0)
[2022-12-10 11:11] LABS: Cholesterol 217 mg/dL (0-200); HDL Direct 85 mg/dL; Triglycerides 117 mg/dL (<150)
[2022-12-10 11:22] LABS: LDL Cholesterol Direct 75 mg/dL
[2022-12-10 11:43] LABS: Thyroid Stimulating Hormone 0.623 uIU/mL (0.465-4.680)
[2022-12-10 11:53] LABS: Hemoglobin A1C 5.3 % (<5.7)
[2022-12-10 13:31] LABS: Vitamin D 25 Hydroxy 16.5 ng/mL
[2022-12-10 14:04] LABS: Hepatitis C Virus Antibody Negative (Negative)
[2022-12-11 13:54] LABS: Rapid Plasma Reagin Non-Reactive (NonReactive)
[2022-12-14 08:47] LABS: HSV 1 IgM Screen Negative (Negative); HSV 2 IgM Screen Negative (Negative)
== END 2022-12-10 08:36 | disposition home or self-care (01) ==
LOC: ANHLAB 08:38
PROVIDERS: PCP Pediatrics
DX: Z51.81 Encounter for therapeutic drug level monitoring (principal); Z79.899 Other long term (current) drug therapy; F10.20 Alcohol dependence, uncomplicated
CPT/HCPCS: 36415; 80061; 82306; 83036; 84443; 85025; 86592; 86695; 86696; 86803; 87491; 87591; 87661

== ENCOUNTER 2023-10-03 00:30 | Day surgery (SDC) | payer OTHER, SELFPAY ==
[2023-09-26 13:55] VITALS: BMI 31.4
--- NOTE | 2023-10-01 09:54 | SUR.PREOP ---
Patient called regarding upcoming procedure. Reviewed preop instructions, appointment times, and procedure prep.
[2023-10-03 10:32] VITALS: BP 97/71; PULSE 91; RESP 18; TEMP 36.6; O2SAT 98; BMI 32.0
--- NOTE | 2023-10-03 10:34 | SUR.PREOP ---
Patient requesting something for anxiety while waiting in preop. Notified Dr. Quick.
--- NOTE | 2023-10-03 10:42 | PM.HPGS ---
History of Present Illness History of Present Illness Consent: Risks, benefits, and alternatives have been discussed and questions answered. Patient agrees to proceed with procedure. Chief complaint: abdominal pain, HX Francesca-en-Y gastric bypass Narrative: Niyah Shay is a 43 year old female Presents for EGD on referral from Dr. Reeder. patient had a gastric bypass surgery 10 years ago when it you to a. She apparently has had multiple follow-up surgeries because of complications. Previously followed elsewhere. She apparently has had abdominal pain associated with esophagitis over the last 1 month. She does have a prior history of cholecystectomy. An EGD is requested because of her ongoing epigastric and chest pain. Patient denies any dysphagia. Denies any bleeding. she states that at 1 point she had a perforated ulcer. No old records accompany her aside from an ultrasound that is essentially unremarkable and shows previous cholecystectomy. Review of Systems Review of Systems: Review of systems noncontributory. [facility] Past Medical History Medical History (Updated 10/03/23 @ 10:44 by Los Ballesteros MD) Anxiety Depression Fibroids Fibromyalgia Perforated ulcer stomach 2019 Surgical History Surgical History (Updated 10/03/23 @ 10:44 by Los Ballesteros MD) History of gastric bypass Hx laparoscopic cholecystectomy S/P myomectomy Abdominal 2012 Social History Social History Smoking packs per day: 0.5 Smoking cigarettes per day: 10.0 Years smoked: 6 Smoking pack-years: 3.00 Smoking status: Current every day smoker Tobacco type: cigarettes and e-cigarettes/vaping Second hand tobacco smoke exposure: No Additional smoking assessment comments: STARTED VAPING IN 2018 Alcohol intake: never Drinks per week: 2 Alcohol use details: beer or wine; occassionally Substance use: former Substance use type: does not use Living arrangements: with family Additional living arrangements comments: significant other Gender identity (if verbalized by the patient): Female Spiritual care concerns: No Meds Home Medications and Allergies Home Medications Medication Instructions Recorded Confirmed Type acetaminophen 325 mg capsule 650 mg PO Q4-6H PRN Pain 09/06/21 10/03/23 History (Tylenol) medroxyprogesterone 150 mg/mL 150 mg IM [id number] 09/06/21 10/03/23 History intramuscular syringe omeprazole 20 mg capsule,delayed 20 mg PO DAILY 09/06/21 10/03/23 History release bupropion HCl 200 mg tablet,12 hr 200 mg PO BID 09/26/23 10/03/23 History sustained-release clonazepam 2 mg tablet 2 mg PO BID 09/26/23 10/03/23 History cyanocobalamin (vitamin B-12) 1,000 mcg IM Q1M MONTHLY 09/26/23 10/03/23 History 1,000 mcg/mL injection solution ergocalciferol (vitamin D2) 1,250 50,000 unit PO WEEKLY 09/26/23 10/03/23 History mcg (50,000 unit) capsule ferrous sulfate 325 mg (65 mg 325 mg PO BID 09/26/23 10/03/23 History iron) tablet gabapentin 600 mg tablet 600 mg PO TID 09/26/23 10/03/23 History ondansetron 4 mg disintegrating 4 mg PO Q4-6H PRN Nausea And 09/26/23 10/03/23 History tablet Vomiting rizatriptan 10 mg disintegrating 10 mg PO DAILY PRN Headache 09/26/23 10/03/23 History tablet tizanidine 4 mg tablet 4 mg PO TID PRN FIBROMYALGIA 09/26/23 10/03/23 History trazodone 50 mg tablet 50 - 150 mg PO HS PRN Insomnia 09/26/23 10/03/23 History zolpidem 10 mg tablet 10 mg PO HS 09/26/23 10/03/23 History Allergies Allergy/AdvReac Type Severity Reaction Status Date / Time Penicillins Allergy Severe Swelling Verified 10/03/23 10:30 of Lip/Tongue/Throat Sulfa (Sulfonamide Allergy Intermediate Hives Verified 10/03/23 10:30 Antibiotics) ciprofloxacin Allergy Mild Hives Verified 10/03/23 10:30 red (food color) AdvReac Intermediate Nausea and Verified 10/03/23 10:30 Vomiting Vital Signs Vital Signs -
[2023-10-03] MEDS: LACTATED RINGERS 1,000 ML 150 ML IV CONT (11:05)
--- NOTE | 2023-10-03 11:21 | WPDANESEPPF ---
Anes - Initial Pre Proc Eval Procedure: Operation Date: 10/03/23 11:00 Proposed Procedures p Esophagogastroduodenoscopy - Los Ballesteros MD Date/Time: 10/03/23 11:21 Surgeon: Los Ballesteros MD Pre Op Diagnosis: abdominal pain, HX Francesca-en-Y gastric bypass Patient Data Age: 43 Gender: F Height: 1.68 m Weight: 90 kg Last Vital Signs Temp 97.8 F 10/03/23 10:32 Pulse 91 10/03/23 10:32 Resp 18 10/03/23 10:32 BP 97/71 L 10/03/23 10:32 Pulse Ox 98 10/03/23 10:32 O2 Del Method Room Air 10/03/23 10:32 Allergies Allergy/AdvReac Type Severity Reaction Status Date / Time Penicillins Allergy Severe Swelling Verified 10/03/23 10:30 of Lip/Tongue/Throat Sulfa (Sulfonamide Allergy Intermediate Hives Verified 10/03/23 10:30 Antibiotics) ciprofloxacin Allergy Mild Hives Verified 10/03/23 10:30 red (food color) AdvReac Intermediate Nausea and Verified 10/03/23 10:30 Vomiting Home Medications Medication Instructions Recorded Confirmed Type acetaminophen 325 mg capsule 650 mg PO Q4-6H PRN Pain 09/06/21 10/03/23 History (Tylenol) medroxyprogesterone 150 mg/mL 150 mg IM [id number] 09/06/21 10/03/23 History intramuscular syringe omeprazole 20 mg capsule,delayed 20 mg PO DAILY 09/06/21 10/03/23 History release bupropion HCl 200 mg tablet,12 hr 200 mg PO BID 09/26/23 10/03/23 History sustained-release clonazepam 2 mg tablet 2 mg PO BID 09/26/23 10/03/23 History cyanocobalamin (vitamin B-12) 1,000 mcg IM Q1M MONTHLY 09/26/23 10/03/23 History 1,000 mcg/mL injection solution ergocalciferol (vitamin D2) 1,250 50,000 unit PO WEEKLY 09/26/23 10/03/23 History mcg (50,000 unit) capsule ferrous sulfate 325 mg (65 mg 325 mg PO BID 09/26/23 10/03/23 History iron) tablet gabapentin 600 mg tablet 600 mg PO TID 09/26/23 10/03/23 History ondansetron 4 mg disintegrating 4 mg PO Q4-6H PRN Nausea And 09/26/23 10/03/23 History tablet Vomiting rizatriptan 10 mg disintegrating 10 mg PO DAILY PRN Headache 09/26/23 10/03/23 History tablet tizanidine 4 mg tablet 4 mg PO TID PRN FIBROMYALGIA 09/26/23 10/03/23 History trazodone 50 mg tablet 50 - 150 mg PO HS PRN Insomnia 09/26/23 10/03/23 History zolpidem 10 mg tablet 10 mg PO HS 09/26/23 10/03/23 History Patient hx anesthesia problems: none Family hx anesthesia problems: none Results Review: All pre-operative results and documents have been reviewed as part of the pre-operative evaluation. [facility] Past Medical History Medical History (Updated 10/03/23 @ 10:44 by Los Ballesteros MD) Anxiety Depression Fibroids Fibromyalgia Perforated ulcer stomach 2019 Surgical History Surgical History (Updated 10/03/23 @ 10:44 by Los Ballesteros MD) History of gastric bypass Hx laparoscopic cholecystectomy S/P myomectomy Abdominal 2013 Social History Social History Smoking packs per day: 0.5 Smoking cigarettes per day: 10.0 Years smoked: 6 Smoking pack-years: 3.00 Smoking status: Current every day smoker Tobacco type: cigarettes and e-cigarettes/vaping Second hand tobacco smoke exposure: No Additional smoking assessment comments: STARTED VAPING IN 2019 Alcohol intake: never Drinks per week: 2 Alcohol use details: beer or wine; occassionally Substance use: former Substance use type: does not use Living arrangements: with family Additional living arrangements comments: significant other Gender identity (if verbalized by the patient): Female Spiritual care concerns: No Anes - Eval Final PreProcedure Day of Procedure 10/03/23 11:21 Patient weight: normal Heart: regular rate and rhythm Lungs: clear to auscultation Airway: Mallampati scale class II Neurological: alert and oriented Last oral intake: >/= 8 hours ASA classification: II Emergent: no Anesthetic plan: proceed Anesthesia type and monitoring: general GIVS and standa
[2023-10-03 11:37] VITALS: BP 120/75; PULSE 79; RESP 21; O2SAT 95
[2023-10-03 11:47] VITALS: BP 116/82; PULSE 74; RESP 20; O2SAT 96
[2023-10-03 11:54] VITALS: BP 122/89; PULSE 79; RESP 18; O2SAT 100
== END 2023-10-03 11:59 | disposition home or self-care (01) ==
PROVIDERS: PCP Pediatrics; Visit Provider Internal Medicine Gastroenterology
PROC: 0DJ08ZZ Inspection of Upper Intestinal Tract, Via Natural or Artificial Opening Endoscopic (ICD-10-PCS; CPT 43235; principal; 2023-10-03 11:00)
DX: R10.13 Epigastric pain (principal); Z98.84 Bariatric surgery status; F41.9 Anxiety disorder, unspecified; F32.A Depression, unspecified; F17.290 Nicotine dependence, other tobacco product, uncomplicated; Z90.49 Acquired absence of other specified parts of digestive tract
CPT/HCPCS: 43239; 87081; J2001; J2250; J2704; J7120

== ENCOUNTER 2024-08-25 17:36 | Emergency (ER) | payer OTHER, SELFPAY ==
--- NOTE | ~2024-08-25 | XR_ITS ---
HISTORY: ESOPHAGEAL PAIN COMPARISON: None TECHNIQUE: 2 views of the soft tissues of the neck were performed FINDINGS: Normal delineation of the pharynx, larynx and trachea. Paravertebral soft tissues demonstrate normal width. No evidence of radiopaque foreign bodies or gas within the soft tissues. Cervical spine vertebral bodies have normal height and alignment. IMPRESSION: Unremarkable plain film evaluation of the soft tissues of the neck, as detailed above. Reviewed, dictated and finalized at location A.
--- NOTE | ~2024-08-25 | CT_ITS ---
CLINICAL INDICATION: Gastric bypass surgery, decreased oral intake COMPARISON: . 09/09/2020 TECHNIQUE: An enhanced CT of the abdomen and pelvis was performed utilizing multislice spiral [employer] ue reconstructed at 2.5 mm slice thickness. Coronal and sagittal reconstructions were performed. Th is CT examination was performed utilizing dose reduction techniques. DLP: 1327 mGy-cm FINDINGS/OBSERVATIONS: Lung:Bibasilar atelectasis. The remainder of the lungs are clear. Elevation of the left hemidiaphragm is identified with adjacent compressive atelectasis. Mediastinum: No pathologically enlarged or morphologically suspicious lymph nodes are identified with in the mediastinum or within the bilateral axilla. The heart is of normal size, without pericardial effusion. Soft tissues of the chest: Unremarkable. Bones of the chest: No lytic or blastic lesions are identified. Liver: The right lobe of the liver is elevated into the patient's chest. The enlarged left lobe of the liver is below the right hemidiaphragm, and courses to the right of mid line. Gallbladder and biliary system: The gallbladder is surgically absent. Pancreas: Fatty atrophy of the pancreas is identified. Spleen: The left hemidiaphragm has a large hernia defect encompassing nearly the entire anterior anu in, and includes the spleen. Kidneys: The bilateral kidneys enhance symmetrically, and are otherwise unremarkable. Adrenal glands: Unremarkable Gastrointestinal tract: The neostomach is small in caliber. The excluded te-moak stomach is enlarged and fluid-filled. Mural edema is also noted within the te-moak stomach which extends into the left chest into the large diaphragmatic hernia defect. The enlarged te-[place]ak stomach demonstrates mass effect on the mediastinum with subsequent extension of the mediastinum to the right of midline. Anastomosis of small bowel is intact, to the left midline without dilatation. Appendix:The appendix is of normal caliber (series 3, image 191) Vasculature: Unremarkable Lymph nodes: No pathologically enlarged or morphologically suspicious lymph nodes within the retroper itoneum or at the root of the mesentery. Pelvic structures:The uterus is retroverted and retroflexed. The bladder is only minimally distended but otherwise unremarkable. Fecal stasis within the rectum. The left ovary is unremarkable. Adjacent to the right ovary is a 12 mm rounded focus of decreased attenuation with a bulky rim calcif ications, possibly a dermoid cyst (although not detected on the 2019 examination). This focus is iden tified on this series 3, image 212 for which nonemergent follow-up is needed. Body wall and musculoskeletal: Unremarkable IMPRESSION: Mural edema within the te-moak stomach which is filled with air and fluid. Neostomach is diminutive. Large hernia defect within the diaphragms, markedly distorting mediastinum and upper abdominal conten ts. Indeterminate focus within the right hemipelvis, possibly a dermoid cyst although not present on the 2019 or 2017 examinations. Short-term follow-up is recommended. Reviewed, dictated and finalized at location A. IMPRESSION: Mural edema within the te-moak stomach which is filled with air and fluid. Neostomach is diminutive. Large hernia defect within the diaphragms, markedly distorting mediastinum and upper abdominal contents. Indeterminate focus within the right hemipelvis, possibly a dermoid cyst althou gh not present on the 2019 or 2017 examinations. Short-term follow-up is recomm ended.
--- NOTE | ~2024-08-25 | XR_ITS ---
CHEST RADIOGRAPH, PA AND LATERAL CLINICAL HISTORY: esophageal pain, cp . COMPARISON: 06/01/2019 TECHNIQUE: PA and lateral views of the chest. FINDINGS Elevation of the left hemidiaphragm with adjacent compressive atelectasis. Eventration of the left hemidiaphragm is suspected secondary to multiple aerated loops of bowel as we ll as the aerated stomach projecting in this location (confirmed on CT examination of the abdomen and pelvis dated 09/09/2020). The cardiomediastinal silhouette is unremarkable (although partially obscured). The remainder of the lungs are clear. IMPRESSION: Stable radiographic evaluation of the chest, without focal infiltrate or effusion. Given patient's variant anatomy (as demonstrated on prior CT examination) recommend cross-sectional i maging of the abdomen and pelvis for further evaluation preferably with CT. Reviewed, dictated and finalized at location A. IMPRESSION: Stable radiographic evaluation of the chest, without focal infiltrate or effusi on. Given patient's variant anatomy (as demonstrated on prior CT examination) recom mend cross-sectional imaging of the abdomen and pelvis for further evaluation p referably with CT.
[2024-08-25 17:43] VITALS: BP 113/75; PULSE 97; RESP 18; TEMP 36.4; O2SAT 98
--- NOTE | 2024-08-25 17:48 | ED.GENADULT ---
HPI - General Adult General Chief complaint: Unspecified <Rhona Fontanez PA-C - Last Filed: 08/25/24 17:59> Stated complaint: painful swallowing, hx of strictures <Rhona Fontanez PA-C - Last Filed: 08/25/24 17:59> Time Seen by Provider: 08/25/24 17:48 <Rhona Fontanez PA-C - Last Filed: 08/25/24 17:59> Focused HPI: Patient is a 44 y/o female, with PMH of complicated gastric bypass surgery 10 years ago, PUD, fibromyalgia, who presents to the ED with c/o dysphagia. Patient reports over the past few months, she has been having painful and difficulty swallowing solids. States pain radiates up into her chest and throat. States it has now progressed to having difficulty even swallowing liquids. Reports intermittent dry heaving and regurgitation of food. Does have hx of esophageal spasm and stricture, but has never had a dilatation. Does not currently follow with GI. States she overall feels weak like she is not able to get enough nutrition in. Denies fevers. GENERAL: Well-appearing, obese with BMI of 32.4, and in no acute distress. HEAD: Normocephalic, atraumatic. CHEST: Clear to auscultation. ?No respiratory distress. No focal lung sounds. HEART: Regular rate and rhythm.? NEURO: ?Alert and oriented x3. Patient screened in triage and initial orders placed.? ?Additional care and disposition to be based upon?diagnostic testing and treatment. <Rhona Fontanez PA-C - Last Filed: 08/25/24 17:59> Source: patient <Rhona Fontanez PA-C - Last Filed: 08/25/24 17:59> Mode of arrival: ambulatory <Rhona Fontanez PA-C - Last Filed: 08/25/24 17:59> Limitations: no limitations <Rhona Fontanez PA-C - Last Filed: 08/25/24 17:59> History of Present Illness HPI narrative: I agree with the above HPI <Alexis Quiles MD - Last Filed: 08/26/24 04:48> Related Data Home medications: Home Medications Medication Instructions Recorded Confirmed acetaminophen 325 mg capsule 650 mg PO Q4-6H PRN Pain 09/06/21 10/03/23 (Tylenol) medroxyprogesterone 150 mg/mL 150 mg IM [id number] 09/06/21 10/03/23 intramuscular syringe omeprazole 20 mg capsule,delayed 20 mg PO DAILY 09/06/21 10/03/23 release bupropion HCl 200 mg tablet,12 hr 200 mg PO BID 09/26/23 10/03/23 sustained-release clonazepam 2 mg tablet 2 mg PO BID 09/26/23 10/03/23 cyanocobalamin (vitamin B-12) 1,000 mcg IM Q1M MONTHLY 09/26/23 10/03/23 1,000 mcg/mL injection solution ergocalciferol (vitamin D2) 1,250 50,000 unit PO WEEKLY 09/26/23 10/03/23 mcg (50,000 unit) capsule ferrous sulfate 325 mg (65 mg 325 mg PO BID 09/26/23 10/03/23 iron) tablet gabapentin 600 mg tablet 600 mg PO TID 09/26/23 10/03/23 ondansetron 4 mg disintegrating 4 mg PO Q4-6H PRN Nausea And 09/26/23 10/03/23 tablet Vomiting rizatriptan 10 mg disintegrating 10 mg PO DAILY PRN Headache 09/26/23 10/03/23 tablet tizanidine 4 mg tablet 4 mg PO TID PRN FIBROMYALGIA 09/26/23 10/03/23 trazodone 50 mg tablet 50 - 150 mg PO HS PRN Insomnia 09/26/23 10/03/23 zolpidem 10 mg tablet 10 mg PO HS 09/26/23 10/03/23 <Rhona Fotnanez PA-C - Last Filed: 08/25/24 17:59> Allergies/adverse reactions: Allergies Allergy/AdvReac Type Severity Reaction Status Date / Time Penicillins Allergy Severe Swelling Verified 08/25/24 17:37 of Lip/Tongue/Throat Sulfa (Sulfonamide Allergy Intermediate Hives Verified 08/25/24 17:37 Antibiotics) ciprofloxacin Allergy Mild Hives Verified 08/25/24 17:37 red (food color) AdvReac Intermediate Nausea and Verified 08/25/24 17:37 Vomiting <Rhona Fontanez PA-C - Last Filed: 08/25/24 17:59> Review of Systems Review of Systems: All systems reviewed & are unremarkable except as noted in HPI and below <Alexis Quiles MD - Last Filed: 08/26/24 04:48> [facility] Past Medical History Medical History: Medical History (Updated 08/26/24 @ 03:37 by Alexis Quiles M
--- NOTE | 2024-08-25 17:54 | ECG_ITS ---
Test Date: 2024-08-25 21:06:02 Measurements Intervals Blanco Rate: 80 P: 25 WY: 108 QRS: 63 QRSD: 83 T: 54 QT: 374 QTc: 433 Interpretive Statements SINUS RHYTHM WITH SHORT WY INTERVAL NONSPECIFIC T-WAVE ABNORMALITY BORDERLINE ECG No previous ECG available for comparison Electronically Signed On 08-26-2024 07:56:11 CDT by Sathish Zamora M.D.
[2024-08-25 20:40] VITALS: BP 122/92; PULSE 91; RESP 16; TEMP 36.5; O2SAT 97
[2024-08-25] MEDS: BELLADONNA ALK/PHENOB ELIX 10 ML, MAG HYDROX/ALUMINUM HYD/SIMETH 30 ML, LIDOCAINE HCL 2... PO (21:36)
[2024-08-25 22:18] LABS: BEDSIDEPREGUCG Negative (Negative)
[2024-08-25] MEDS: HYDROmorphone HCL INJ (*CRX) 1 MG/ML SYR 0.5 MG IV PUSH ×2 (22:18→23:20)
[2024-08-25] MEDS: SODIUM CHLORIDE 0.9% IV 1,000 ML 999 ML IV CONT (22:18)
[2024-08-25] MEDS: ONDANSETRON INJ 4 MG/2 ML VIAL IV PUSH (22:19)
[2024-08-25 22:26] LABS: Basophils Absolute Auto 0.1 K/mm3 (0.0-0.1); Basophils Percent Auto 0.8 % (0.2-1.2); Eosinophils Absolute Auto 0.1 K/mm3 (0-0.3); Eosinophils Percent Auto 1.5 % (0-4.4); Hematocrit 42.9 % (37.0-47.0); Hemoglobin 14.4 g/dL (12.0-15.0); Immature Granulocyte Absolute 0.01 K/mm3 (0.00-0.031); Immature Granulocyte Percent A 0.1 % (0-0.5); Lymphocytes Absolute Auto 3.53 K/mm3 (0.9-3.2); Lymphocytes Percent Auto 48.6 % (18.3-44.2); Mean Corpuscular HGB Conc 33.6 g/dl (32-36); Mean Corpuscular Hemoglobin 31.3 pg (26-34); Mean Corpuscular Volume 93.3 fl (80-100); Mean Platelet Volume 9.8 fl (7.4-10.4); Monocytes Absolute Auto 0.3 K/mm3 (0.1-0.6); Neutrophils Absolute Auto 3.3 K/mm3 (1.3-6.7); Platelet Count Result 256 k/mm3 (150-375); Red Cell Distribution Width 12.4 % (11.5-14.5); White Blood Count 7.3 K/mm3 (4.5-10.0)
[2024-08-25 22:39] LABS: Alanine Aminotransferase 24 U/L (6-35); Albumin Level 4.6 g/dL (3.5-5.1); Alkaline Phosphatase 59 U/L (38-126); Anion Gap 9 mmol/L (4-12); Aspartate Amino Transferase 28 U/L (14-36); Bilirubin,Total 0.4 mg/dL (0.2-1.3); Blood Urea Nitrogen 8 mg/dL (7-17); Carbon Dioxide 25 mmol/L (22-30); Chloride 102 mmol/L (98-107); Estimated CRCL calculation 101 ml/min; Estimated Glomerular Filt Rate > 60; Glucose 90 mg/dL (65-110); Magnesium 1.9 mg/dL (1.6-2.3); Potassium 3.5 mmol/L (3.4-5.0); Sodium 136 mmol/L (137-145)
[2024-08-26] MEDS: HYDROmorphone HCL INJ (*CRX) 1 MG/ML SYR 0.5 MG IV PUSH (02:15)
[2024-08-26 02:20] VITALS: PULSE 79; RESP 14; O2SAT 100
== END 2024-08-26 02:20 | disposition home or self-care (01) ==
PROVIDERS: Physician Assistant; Emergency Provider Emergency Medicine; PCP Pediatrics
DX: R10.9 Unspecified abdominal pain (principal); M79.7 Fibromyalgia; F17.210 Nicotine dependence, cigarettes, uncomplicated; F17.290 Nicotine dependence, other tobacco product, uncomplicated; Z98.84 Bariatric surgery status; Z87.11 Personal history of peptic ulcer disease; Z90.49 Acquired absence of other specified parts of digestive tract; R94.31 Abnormal electrocardiogram [ECG] [EKG]; R93.5 Abnormal findings on diagnostic imaging of other abdominal regions, including retroperitoneum
CPT/HCPCS: 36415; 70360; 71046; 71260; 74177; 80053; 81025; 83735; 85025; 93005; 96361; 96374; 96375; 96376; 99284; A9270; J1171; J2405; J7030; Q9967

== ENCOUNTER 2024-12-28 12:48 | Outpatient (CLI) | payer OTHER, SELFPAY ==
--- NOTE | ~2024-12-28 | US_ITS ---
EXAM: PELVIC ULTRASOUND HISTORY: Other intra-abdominal and pelvic swelling, mass and lump COMPARISON: None. Reference is also made to the CT examination of the abdomen and pelvis dated 08/25/2024 FINDINGS: UTERUS: 5.3 x 3.0 x 3.3 cm. The uterus is retroverted and retroflexed. The endometrial complex measures 3mm. Multiple fibroids are identified within the uterus. The first is located within the subserosal space along the anterior fundus measuring 16 x 15 x 18 mm. The second is located within the intramural space along the anterior body of the uterus measuring 14 x 8 x 11 mm. RIGHT OVARY: Despite prolonged interrogation, the right ovary was not visualized LEFT OVARY: Despite prolonged interrogation, the right ovary was not visualized. A single anechoic avascular focus is identified within the left ovary measuring 18 x 10 x 18 mm, repr esenting a simple cyst (perhaps an involuting follicle) for which no further follow-up is needed. No free fluid is identified within the pelvis. IMPRESSION: Fibroid uterus. The abnormality seen on CT examination within the right lower quadrant was 12 mm, containing fat and was densely calcified. Further evaluation of prior imaging demonstrates that this focus was present in 2019 (axial series, i mage 152), as well as within 2018 (axial series, image 131), although the morphology has changed cons iderably since that time. Despite containing fat, this focus now demonstrates surrounding bulky calci fications in addition to a bulky calcification within the wall (possibly representing a tooth). Given the appearance over time of this focus in the right hemipelvis, this likely represents the normal ev olution of a dermoid cyst for which PRODUCTION DRILLING MACHINE OPERATOR consultation as to further management is suggested. This focus does not demonstrate any morphology that would even suggest malignant transformation (rapi d growth in size, as well as size larger than 10 cm) for which intermittent follow-up may be performe d. Given the morphology currently, this area is not detected with ultrasound, and follow-up should be wi th CT examination, if performed. Reviewed, dictated and finalized at location A. NESS INTELLIGENCE DIRECTOR IMPRESSION: Fibroid uterus. The abnormality seen on CT examination within the right lower quadrant was 12 m m, containing fat and was densely calcified. Further evaluation of prior imaging demonstrates that this focus was present in 2019 (axial series, image 152), as well as within 2017 (axial series, image 13 1), although the morphology has changed considerably since that time. Despite c ontaining fat, this focus now demonstrates surrounding bulky calcifications in addition to a bulky calcification within the wall (possibly representing a toot h). Given the appearance over time of this focus in the right hemipelvis, this likely represents the normal evolution of a dermoid cyst for which PRODUCTION DRILLING MACHINE OPERATOR consulta tion as to further management is suggested. This focus does not demonstrate any morphology that would even suggest malignan t transformation (rapid growth in size, as well as size larger than 10 cm) for which intermittent follow-up may be performed. Given the morphology currently, this area is not detected with ultrasound, and follow-up should be with CT examination, if performed.
--- OUTSIDE RECORDS SUMMARY | 2024-12-28 13:35 | XMS_ITS | Patient Health Record ---
Author Organization [facility], [place] Address [address] [facility] [address] [facility] [address] [place], [place] [id number] Care Team Providers Care Severity Of Illness Coordinator Name Role Phone BRAYDON NOLASCO Primary Care Provider Jarrett Segovia Unavailable [phone] ALLERGIES Allergen (clinical drug ingredient) Drug/Non Drug Allergy documented on EMR Reaction Allergy Type Onset Date Status ciprofloxacin Cipro Unknown Drug Allergy Act ke clonidine Clonidine Unknown Drug Allergy Active Substance with penicillin structure and antibacterial mechanism of action (substance) Penicillins Unknown Drug Allergy Active Medicinal quinolone and acting as antibacterial agent (FN) Quinolones Unknown Drug Allergy Active Substance with sulfonamide structure and antibacterial mechanism of action (substance) Sulfa Antibiotics Unknown Drug Allergy Active REASON FOR REFERRAL No Information MEDICATIONS Medication SIG (Take, Route, Frequency, Duration) Notes Start Date End Date Status tiZANidine HCl 4 MG 1 tablet as needed Orally Three times a day Active clonazePAM 1 MG 1 tablet Orally Twice a day Active Ferrous Sulfate 325 (65 Fe) MG 1 tablet Orally Twice a day Active Gabapentin 600 MG 1 tablet Orally Three times a day Active Cyanocobalamin 1000 MCG/ML 1 mL Injection for 30 day(s) Active carBAMazepine ER 100 MG 1 tablet Orally Twice a day for 30 day(s) Not-Taking medroxyPROGESTERone Acetate 150 MG/ML 1 mL Intramuscular for 30 day(s) Active buPROPion HCl ER (SR) 200 MG 1 tablet in the morning Orally Twice a day Active Zolpidem Tartrate 10 MG 1 tablet at bedt regine as needed Orally Once a day every other night Active Famotidine 20 MG 1 tablet at bedtime as needed Orally Once a day for 30 day(s) takes 6 mo out year Active Omeprazole 20 MG 1 capsule 30 minutes before morning meal Orally Once a day for 30 day(s) ins only pays 6 mo supply Not-Taking Ubrelvy 100 MG 1 tablet may take second dose at least 2 hours after first dose as needed Orally Once a day Active Ergocalciferol 1.25 MG (42343 UT) 1 capsule Orally Once a week Active SOCIAL HISTORY Tobacco Use: Social History Observation Description Date Details (start date - stop date) Current Smoker NA - NA Sex Assigned At : Social History Observation Description Sex Assigned At Unknown Tobacco Use/Smoking Question Answer Notes Are you a current smoker PROBLEMS Problem Type ICD Code Onset Dates Problem Status W/U Status Risk SNOMED Code Notes Problem Chronic pain syndrome (G89.4) Active confirmed Chronic pain syndrome (268648492) Encounters Encounter Location Date Provider Diagnosis [address] [address] 01/05/2024 Jarrett Flowers PLAN OF TREATMENT No Information MEDICAL (GENERAL) HISTORY Medical History History ICD Code Back pain Low back pain radiating to right leg vitamin D deficiency depression Anxiety disorder fibromyalgia alcohol abuse bipolar disorder constipation Abdominal hyperesthesia Abdominal pain Acidosis Chest pain on breathing Cough Depo-Provera contraceptive status Dermoid cyst of right ovary History of Francesca-en-Y gastric bypass Insomnia Intentional overdose Iron deficiency Left leg swelling Leg weakness, bilateral Liver cyst Lumbar transverse process fracture Menorrhagia Migraine without aura and with status mi grainosus Nausea & Vomitting Pain in right leg Sinus congestion Tendinitis of left shoulder Thoracic back pain Urinary incontinence Vitamin B12 deficiency Vitamin D deficiency Surgical History Surgery Date(Month/Year) cholecystectomy 09/2017 gastric bypass 2013 abdominal surgery- uterine fibroid remov al 2010 emergent stomach surgery - b ypass surgery error - body filled up with bile. x 8 surgery total 2013 Hospitalization History Reason Date(Month/Year) [facility] - hospitalized multiple times after gastric bypass. 2012
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
--- OUTSIDE RECORDS SUMMARY | 2024-12-28 13:36 | XMS_ITS ---
Author Organization [facility] [place], [place] Address [address] [place], [place] [address] Care Team Providers Care Senior Treasury Consultant Name Role Phone BRAYDON NOLASCO Primary Care Provider Jarrett Segovia Unavailable [phone] REASON FOR VISIT 7. TPI'S THROACIC AND LUMBAR PARASPINAL MUSCLES right sided mid back, low back Encounters Encounter Location Date Provider Diagnosis Rachael Weems [address] [address] 12/15/2023 Jarrett Flowers PLAN OF TREATMENT No Information History and Physical Notes * HPI (History of Present Illness) Category Sub-Category Detail Notes Chronic Pain The pain began many, years ago. Patient has had fall from stairs in January, and had four T spine transverse process fractures The Pain is located in the right sided m id back, low back The Pain is localized The pain score today is 8 out of 10 The nature of the pain is constant, vari es in intensity, achy, dull Aggravating factors for pain include any physical activity Alleviating factors for pain include not malu specific CONSERVATIVE TREATMENTS HAVE INCLUDED: T RIED FOR ATLEAST 8 WEEKS IN THE LAST 6 MONTHS INCLUDE - , ICE, HEAT, MASSAGE, TYLENOL, OTC TOPICAL PAIN CREAMS/PATCHES, NEUROMODULATING MEDICATIONS, MUSCLE RELAXERS, PHYSICAL THERAPY (PT) - LAST DONE FOR 2 WEEKS WEEKS IN February, THAT MADE THE PAIN WORSE, THAT DID NOT HELP Prior testing include X Ray, MRI scan Patient has physical restric tions, has restricted activities of daily living (ADL) including bathing/showering, grooming, dressing, getting in and out of bed and walk from one location to another Patient denies tingling, numbness, weakness, bowel incontinence, bladder incontinence
--- OUTSIDE RECORDS SUMMARY | 2024-12-28 13:36 | XMS_ITS ---
Author Organization [facility] [place], [place] Address [address] [place], [place] [address] Care Team Providers Care Nude Model Name Role Phone BRAYDON NOLASCO Primary Care Provider Jarrett Segovia Unavailable [phone] REASON FOR VISIT APPOINTMENTS CANCELLED Encounters Encounter Location Date Provider Diagnosis [address] [address] 12/03/2023 Jarrett Flowers PLAN OF TREATMENT No Information
--- OUTSIDE RECORDS SUMMARY | 2024-12-28 13:36 | XMS_ITS ---
Author Organization [facility] dicine Address [address] [place] [address] Care Team Providers Care Tire Balancer Name Role Phone WilberRandy velazquez Primary Care Provider [phone] REASON FOR VISIT monthly Medications Medication SIG (Take, Route, Frequency, Duration) Notes Start Date End Date Status LIQUID B-12 1,000 mcg/15 mL 1 Oral once a week; Duration: 0 *Reorder from [employer] for eRx and Interaction Alerts* 06/30/2023 Active traZODone HCl 50 MG 3 Oral every night at bedtime; Duration: 30 08/03/2024 5 Active tiZANidine HCl 4 MG 1 tablet at bedtime as needed Orally 3 times a day; Duration: 30 days As needed Active Ferrous Sulfate 325 (65 Fe) MG Oral; Duration: 30 09/15/2024 5 Active Vitamin D (Ergocalciferol) 1.25 MG (29084 UT) 1 Oral once a week; Duration: 28 09/28/2024 5 Active Esomeprazole Magnesium 20 MG 1 Oral every day; Duration: 90 07/28/2024 5 Active Nurtec ODT 75 mg 1 Sublingual every other day; Duration: 30 *Reorder from [employer] for eRx and Interaction Alerts* 09/28/2024 5 Active QUEtiapine Fumarate 25 MG Oral; Duration : 30 08/13/2024 5 Active syringe with needle, safety 1 mL 25 gauge x 1 1 once a week; Duration: 0 *Reorder from [employer] for eRx and Interaction Alerts* 06/30/2023 Active Gabapentin 400 MG 1 Oral three times a day; Duration: 30 08/27/2024 5 Active Cyanocobalamin 1000 MCG/ML Injection; Duration: 90 01/16/2024 5 Active medroxyPROGESTERone Acetate 150 MG/ML Intramuscular; Duration: 90 03/02/2024 5 Active clonazePAM 2 MG 1 Oral two times a day; Duration: 30 days As needed 11/03/2024 5 Active buPROPion HCl 200 mg 1 BY MOUTH two times a day; Duration: 30 *Pick strength-form from [employer] for eRX* 08/03/2024 5 Active Vitamin D (Cholecalciferol) 25 MCG (1000 UT) 3 Oral every day; Duration: 0 01/24/2023 Active diazePAM 5 MG 1 tablet Orally Once a day; Duration: 15 days 11/26/2024 Active ALPRAZolam 1 MG 1 tablet Orally daily; Duration: 12 days As needed 11/26/2024 Active oxyCODONE-Acetaminophen 7.5-325 MG 1 Oral 3 times a day; Duration: 30 days As needed ,PRN Reason:for pain 11/26/2024 5 Active clonazePAM 2 MG 1 Oral two times a day; Duration: 30 days As needed 12/03/2024 5 Active oxyCODONE-Acetaminophen 7.5-325 MG 1 Oral 3 times a day; Duration: 30 days As needed ,PRN Reason:for pain 11/03/2024 5 Active Encounters Encounter Location Date Provider Diagnosis [address] [address] 11/26/2024 Randy Antonio Chronic pain syndrom e G89.4 and Generalized anxiety disorder F41.1 Assessments Encounter Date Diagnosis (ICD Code) Assessment Notes Treat ment Notes Treatment Clinical Notes 11/26/2024 Chronic pain syndrome (ICD-10 - G89.4) 11/26/2024 Generalized anxiety disorder (ICD-10 - F41.1) Plan Of Treatment Medication Medication Name Sig Start Date Stop Date Notes diazePAM 5 MG 1 tablet Orally Once a day; Duration: 15 days 11/26/2024 ALPRAZolam 1 MG 1 tablet Orally daily; Duration: 12 days 11/26/2024 oxyCODONE-Acetaminophen 7.5-325 MG 1 Oral 3 times a day; Duration: 30 days 11/26/2024 12/26/2024 ,PRN Reason:for pain Next Appt Details Follow Up: 4 Weeks, Reason: Provider Name:Randy Gonsalez en, 01/25/2025 03:00:00 PM, [address], [place], [address], [phone] History and Physical Notes * Examination Category Sub-Category Detail Notes General Examination General appearance: Alert an d in no distress Head: normocephalic, atrau matic Eyes: both eyes, normal, e xtraocular movement intact (EOMI), conjunctiva clear Neurologic: alert and oriented, cognitive exam grossly normal Skin: with no suspicious s kin lesions Extremities: normal extremity wit h no clubbing, cyanosis or edema Oral cavity: Lips benign Progress Notes * Shaquille CHEEKB:1980 (44 yo F)Acc No.[id number]:11/26/2024 Patient: Niyah Gutierrez Provider: Lacy Antonio MD :1980 A ge:44 Y S ex:Female Date:11/26/2024 Phone: Address:[address] [place] [address] [address], [place], [place] Subjective: * Chief Complaints: * 1 . Monthly. * HPI: A nxiety / stress: Mother with stroke and had to put dog down. Difficulty sleeping at night due to the stress.? The worst stress in recent memory. Video visit. * Medications: T aking clonazePAM 2 MG Tablet 1 Oral two times a day As needed, stop date 12/02/2024, Taking buPROPion HCl 200 mg Tablet(s) 1 BY MOUTH two times a day , stop date 01/29/2025, Notes to Pharmacist: *Pick strength-form from [employer] for eRX*, Taking Cyanocobalamin 1000 MCG/ML Solution [...] week , Notes to Pharmacist: *Reorder from [facility] for eRx and Interaction Alerts*, Taking Nurtec ODT 75 mg Tablet(s) 1 Sublingual every other day , stop date 03/26/2025, Notes to Pharmacist: *Reorder from [facility] for eRx and Interaction Alerts*, Taking Esomeprazole Magnesium 20 MG Tablet Delayed Release 1 Oral every day , stop date 01/23/2025, Taking LIQUID B-12 1,000 mcg/15 mL Liquid 1 Oral once a week , Notes to Pharmacist: *Reorder from [facility] for eRx and Interaction Alerts*, Taking Ferrous Sulfate 325 (65 Fe) MG Tablet Oral , stop date 12/13/2024, Taking Vitamin D (Ergocalciferol) 1.25 MG (43962 UT) Capsule 1 Oral once a week , stop date 01/17/2025, Taking traZODone HCl 50 MG Tablet 3 Oral every night at bedtime , stop date 01/29/2025, Taking tiZANidine HCl 4 MG Tablet 1 tablet at bedtime as needed Orally 3 times a day As needed, Taking oxyCODONE-Acetaminophen 7.5-325 MG Tablet 1 Oral 3 times a day As needed, stop date 12/03/2024, Notes to Pharmacist: ,PRN Reason:for pain, Taking clonazePAM 2 MG Tablet 1 Oral two times a day As needed, stop date 01/02/2025, Discontinued HYDROcodone-Acetaminophen 7.5-325 MG Tablet 1 tablet Orally 3 times a day , stop date 11/29/2024 Objective: * Examination: G eneral Examination: General appearance: A lert and in no distress. Head: n ormocephalic, atraumatic. Eyes: b oth eyes, normal, extraocular movement intact (EOMI), conjunctiva clear. Oral cavity: L ips benign. Skin: w ith no suspicious skin lesions. Extremities: n ormal extremity with no clubbing, cyanosis or edema. Neurologic: a lert and oriented, cognitive exam grossly normal. Assessment: * Assessment: 1. C hronic pain syndrome - G89.4 (Primary) 2 . G eneralized anxiety disorder - F41.1 Plan: * Treatment: 2. G eneralized anxiety disorder Start diazePAM Tablet, 5 MG, 1 tablet, Orally, Once a day, 15 days, 15 Tablet, Refills 0; S tart ALPRAZolam Tablet, 1 MG, 1 tablet, Orally, daily As needed, 12 days, 12 Tablet, Refills 0. ? * Follow Up: 4 Weeks Billing Information: * Visit Code: 48945 OFFICE VISIT MODERATE. Modifiers: 95 * EHOLD COOK Sign off status: Completed Addendum: * true * Provider: Lacy Antonio MD Date: 0 11/26/2024 Generated for Amy adams/Niki/Jessica on: 0 12/28/2024 01:35 PM HOUSEHOLD COOK
--- OUTSIDE RECORDS SUMMARY | 2024-12-28 13:36 | XMS_ITS ---
Author Organization [facility] [place], [place] Address [address] [place], [place] [id number] Care Team Providers Care Computer Installation Engineer Name Role Phone BRAYDON NOLASCO Primary Care Provider Jarrett Segovia Unavailable [phone] REASON FOR VISIT 1b. Follow Up Encounters Encounter Location Date Provider Diagnosis Rachael Weems [address] [address] 01/05/2024 Jarrett Flowers PLAN OF TREATMENT No Information
--- OUTSIDE RECORDS SUMMARY | 2024-12-28 13:36 | XMS_ITS | Clinical Summary ---
Author Organization [facility] Address [facility] [address] [place] [address] Care Team Providers Care Mortgage Closing Clerk Name Role Phone Randy Antonio MD Primary Care Provider [phone] Allergies Active Allergy Reactions Criticality Noted Date Comments Ciprofloxacin Anaphylaxis High 07/25/2022 Penicillins Other (see comment) 05/02/2022 Legs go paralyzed Sulfa Antibiotics Anaphylaxis High 07/22/2022 Medications buPROPion XL (WELLBUTRIN XL) 150 MG 24 hr tablet Take 150 mg by mouth daily. Active sucralfate (CARAFATE) 1 GM/10ML suspension Take 1 g by mouth 3 (three) times daily before meals. Active cetirizine (ZYRTEC) 10 MG tablet Take 10 mg by mouth daily. Active mupirocin (BACTROBAN) 2 % ointment Apply topically as needed. Active traZODone (DESYREL) 50 MG tablet Take 2 tablets (100 mg total) by mouth nightly at bedtime. Active pantoprazole EC (PROTONIX) 40 MG tablet Take 40 mg by mouth daily. Active buPROPion (WELLBUTRIN) 100 MG tablet Take 2 tablets (200 mg total) by mouth 2 (two) times daily. 2 Active butalbital-acet aminophen-caffe ine (ESGIC) 50-325-40 MG tablet TAKE 1 TABLET BY MOUTH EVERY 4 HOURS NEEDED FOR HEADACHES FOR UP TO 10 DAYS. 2 Active naltrexone (DEPADE) 50 MG tablet Take 50 mg by mouth daily. 2 Active pantoprazole EC (PROTONIX) 40 MG tablet Take 40 mg by mouth 2 (two) times daily. 2 Active HYDROcodone-clary taminophen (NORCO) 7.5-325 MG tabletIndicatio ns:Acute Pain < 7 Day Supply,transver se process fracture Take 1 tablet by mouth every 6 (six) hours as needed for Pain. Indications: Acute Pain < 7 Day Supply, transverse process fracture 15 tablet 3 Active Additional Information Patient not taking.Reported on 05/13/2023 omeprazole (PRILOSEC) 20 MG capsule Take 1 capsule (20 mg total) by mouth daily. Active clonazePAM (KLONOPIN) 2 MG tablet Take 1 tablet (2 mg total) by mouth 2 (two) times daily. Active QUEtiapine (SEROQUEL) 200 MG tablet Take 1 tablet (200 mg total) by mouth 2 (two) times daily. 1/2 tablet in am 1 tablet at night Active gabapentin (NEURONTIN) 600 MG tablet Take 1 tablet (600 mg total) by mouth 3 (three) times daily. Active diazePAM (VALIUM) 5 MG tablet Take 1 tablet (5 mg total) by mouth 2 (two) times daily. Active tiZANidine (ZANAFLEX) 4 MG tablet Take 1 tablet (4 mg total) by mouth 3 (three) times daily. Active rizatriptan (MAXALT) 10 MG tablet Take 1 tablet (10 mg total) by mouth as needed for Migraine. May repeat in 2 hours if needed Active traMADol (ULTRAM) 50 MG tabletIndicatio ns:Acute Pain < 7 Day Supply Take 1 tablet (50 mg total) by mouth every 6 (six) hours as needed. Indications: Acute Pain < 7 Day Supply 15 tablet 4 Active dicyclomine (BENTYL) 20 MG tablet Take 1 tablet (20 mg total) by mouth every 6 (six) hours as needed (nausea and/or abdominal pain). 24 tablet 5 Active Active Problems Problem Noted Date Diagnosed Date Intentional overdose ([facility] 3 Drug overdose, intentional, initial encounter ([facility]) 05/13/2023 Encounters Date Type Department Care Team Description 12/20/2024 3:02 PM ORACLE E BUSINESS DEVELOPER - 12/20/2024 4:40 PM ORACLE E BUSINESS DEVELOPER Emergency [facility] [address] [place] [address] [place] [address] Randy Foreman MD Abdominal Pain Discharge Disposition: Home or Self Care (Routine Discharge) 12/20/2024 Travel from Last 3 Months Immunizations Name Administration Dates Next Due PFIZER COVID-19 (ORIGINAL FO RMULATION, PURPLE CAP) mRNA, LNP-S, PF, 30 MCG/0.3 ML DOSE 04/03/2021,03/12/2021 Tdap (Boostrix) 07/15/2022 Social History Tobacco Use Types Packs/Day Years Used Date Smoking Tobacco: Some Days Cigarettes Smokeless Tobacco: Never Alcohol Use Standard Drinks/Week Comments Not Currently 0 (1 standard drink = 0.6 oz pure alcohol) in rehab for alcoholism, was half a handle a day drinker, sober one week Humiliation, Afraid, Rape, and Kick questionnair e Answer Date Recorded Within the last year, have y ou been afraid of your partner or ex-partner? Patient declined 05/17/2023 Within the last year, have y ou been humiliated or emotionally abused in other ways by your partner or ex-partner? Patient declined 05/17/2023 Within the last year, have y ou been kicked, hit, slapped, or otherwise physically hurt by your partner or ex-partner? Patient declined 05/17/2023 Within the last year, have y ou been raped or forced to have any kind of sexual activity by your partner or ex-partner? Patient declined 05/17/2023 Overall Financial Resource Strain (CARDIA) Answe r Date Recorded How hard is it for you to pa y for the very basics like food, housing, medical care, and heating? Patient declined 05/17/2023 PRAPARE - Transportation Answer Date Re corded In the past 12 months, has l ack of transportation kept you from medical appointments or from getting medications? Patient declined 05/17/2023 In the past 12 months, has l ack of transportation kept you from meetings, work, or from getting things needed for daily living? Patient declined 05/17/2023 Housing Stability Vital Sign Answer River e Recorded In the last 12 months, was t here a time when you were not able to pay the mortgage or rent on time? Patient refused 05/17/20 23 In the last 12 months, how many places have you lived? 0 05/17/2023 In the last 12 months, was t here a time when you did not have a steady place to sleep or slept in a [place] (including now)? Patient refused 05/17/2023 Comments No Sex and Gender Information Value Date Recorded Sex Assigned at Female 12/20/2024 3:05 PM ORACLE E BUSINESS DEVELOPER Legal Sex Female 6:15 PM CDT Gender Identity Not on file Sexual Orientation Not on file Last Filed Vital Signs Vital Sign Reading Time Taken Comments Blood Pressure 118/94 12/20/2024 3:03 PM ORACLE E BUSINESS DEVELOPER Pulse 118 12/20/2024 3:03 PM ORACLE E BUSINESS DEVELOPER Temperature 36 C (96.8 F) 12/20/2024 3:03 PM ORACLE E BUSINESS DEVELOPER Respiratory Rate 18 12/20/2024 3:03 PM ORACLE E BUSINESS DEVELOPER Oxygen Saturation 98% 12/20/2024 3:03 PM ORACLE E BUSINESS DEVELOPER Inhaled Oxygen Concentration - - Weight 86.2 kg (190 lb) 12/20/2024 3:03 PM ORACLE E BUSINESS DEVELOPER Height 167.6 cm (5' 6 ) 12/20/2024 3:03 PM ORACLE E BUSINESS DEVELOPER Body Mass Index 30.67 12/20/2024 3:03 PM ORACLE E BUSINESS DEVELOPER Plan of Treatment Health Maintenance Due Date Last Done Comments Cervical Cancer Screening Pa p Smear (Age 30 to 64) Every 3 Years 1981 Annual Physical 1984 Pneumococcal Vaccine: Pediatrics (0 to 5 Years) and At-Risk Patients (6 to 64 Years) (1 of 2 - PCV) 1987 Hepatitis C 1999 Hepatitis B Vaccines (1 of 3 - 19+ 3-dose series) 2000 Cervical Cancer Screening Pa p with HPV Testing (Age 30 to 64) Every 5 Years 2011 Cervical Cancer Screening wi th HPV 2011 Mammogram Screening 2021 COVID-19 Vaccine (3 - 2023-2 5 season) 2024 04/03/2021, 03/12/2021 Influenza Adult (#1) 2024 10/28/2017, 09/30/2017 DTaP, Tdap and Td Vaccines ( 2 - Td or Tdap) 07/15/2032 07/15/2022 HPV Vaccines Aged Out No longer eligi ble based on patient's age to complete this topic Meningococcal B Vaccine Aged Out No l onger eligible based on patient's age to complete this topic Meningococcal Vaccine Aged Out No jaki jerry eligible based on patient's age to complete this topic RSV Immunizations Under 20 Months Aged Out No longer eligible b ased on patient's age to complete this topic Goals Goal Patient Goal Type Associated Problems Recent Progress Patient-Stated? 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 Procedure Name Priority Date/Time Associated Diagnosis Comments CT ABD+PEL WO CON STAT 12/20/2024 3:3 5 PM ORACLE E BUSINESS DEVELOPER URINALYSIS AUTO DIP STAT 12/20/2024 3 :18 PM ORACLE E BUSINESS DEVELOPER CHORIONIC GONADOTROPIN HCG QL STAT 12/20/2024 3:18 PM ORACLE E BUSINESS DEVELOPER MAGNESIUM STAT 12/20/2024 3:18 PM ORACLE E BUSINESS DEVELOPER LIPASE STAT 12/20/2024 3:18 PM ORACLE E BUSINESS DEVELOPER COMPREHENSIVE METABOLIC PANEL STAT 12/20/2024 3:18 PM ORACLE E BUSINESS DEVELOPER CBC W/DIFF AUTOMATED STAT 12/20/2024 3:18 PM ORACLE E BUSINESS DEVELOPER from Last 3 Months Results * CT ABD+PEL WO CON (12/20/2024 3:35 PM ORACLE E BUSINESS DEVELOPER) Anatomical Region Laterality Modality Abdomen Computed Tomogra phy 12/20/2024 3:40 PM ORACLE E BUSINESS DEVELOPER Impressions 12/20/2024 3:42 PM ORACLE E BUSINESS DEVELOPER IMPRESSION: 1. No acute findings Ordered By: RANDY FOREMAN Interpreted By: Luis E Sweeney MD, 12/20/2024 3:40 PM Narrative 12/20/2024 3:42 PM ORACLE E BUSINESS DEVELOPER [address] [place] [address] CT ABDOMEN AND PELVIS WITHOUT CONTRAST Clinical history: Lower abdominal pain. Technique: Helical images of the abdomen and pelvis were obtained without contrast. A dose lowering technique was used for this procedure, which may include, but is not limited to, dose reduction technique, automated exposure control, the use of iterative reconstruction, and ALARA (As Low As Reasonably Achievable) / Image Gently techniques. Comparison: September 29, 2023. FINDINGS: Images of the lower thorax demonstrate the visualized portion of the heart to appear normal. The lung bases are clear. Images of the abdomen demonstrate the overall size and morphology of the liver to be within normal limits. No hepatic lesions are observed. No ascites is seen. The gallbladder is surgically absent. The pancreas is moderately atrophic. The spleen and adrenal glands are within normal limits. The kidneys are normal in size bilaterally. No stones or hydronephrosis is apparent. Both ureters follow normal expected course through the retroperitoneum. Images of the pelvis demonstrate the urinary bladder to appear normal. The uterus is normal in size and resides in an anteverted position in the mid pelvis. The adnexa appear normal. 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 The stomach appears normal. The small bowel is otherwise within normal limits. The terminal ileum and appendix appear normal. The colon is within normal limits. No adenopathy or abnormal fluid collections are present Procedure Note Luis E Sweeney MD - 12/20/[address] [place] [address] CT ABDOMEN AND PELVIS WITHOUT CONTRAST Clinical history: Lower abdominal pain. Technique: Helical images of the abdomen and pelvis were obtained withoutcontrast. A dose lowering technique was used for this procedure, which mayinclude, but is not limited to, dose reduction technique, automatedexposure control, the use of iterative reconstruction, and ALARA (As LowAs Reasonably Achievable) / Image Gently techniques. Comparison: September 29, 2023. FINDINGS: Images of the lower thorax demonstrate the visualized portion of the heartto appear normal. The lung bases are clear. Images of the abdomen demonstrate the overall size and morphology of theliver to be within normal limits. No hepatic lesions are observed. Noascites is seen. The gallbladder is surgically absent. The pancreas ismoderately atrophic. The spleen and adrenal glands are within normallimits. The kidneys are normal in size bilaterally. No stones or hydronephrosisis apparent. Both ureters follow normal expected course through theretroperitoneum. Images of the pelvis demonstrate the urinary bladder to appear normal. Theuterus is normal in size and resides in an anteverted position in the midpelvis. The adnexa appear normal. 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 The stomachappears normal. The small bowel is otherwise within normal limits. Theterminal ileum and appendix appear normal. The colon is within normallimits. No adenopathy or abnormal fluid collections are present IMPRESSION: 1. No acute findings Ordered By: RANDY FOREMAN Interpreted By: Luis E Sweeney MD, 12/20/2024 3:40 PM us Randy Foreman MD CT Final Re sult * (ABNORMAL) URINALYSIS AUTO DIP (12/20/2024 3:18 PM ORACLE E BUSINESS DEVELOPER) COLOR (U) YELLOW YELLOW 12/20/2024 3:59 PM ORACLE E BUSINESS DEVELOPER [facility] TRANSPARENCY CLEAR CLEAR 12/20/2024 3:59 PM ORACLE E BUSINESS DEVELOPER [facility] SPECIFIC GRAVITY (U) 1.010 1.010 - 1.025 12/20/2024 3:59 PM ORACLE E BUSINESS DEVELOPER [facility] U PH 6.0 5.0 - 8.5 12/20/2024 3:59 PM ORACLE E BUSINESS DEVELOPER [facility] LEUKOCYTES (U) NEGATIVE NEGATIVE 12/20/2024 3:59 PM ORACLE E BUSINESS DEVELOPER [facility] NITRITES NEGATIVE NEGATIVE 12/20/2024 3:59 PM ORACLE E BUSINESS DEVELOPER [facility] PROTEIN RANDOM (U) NEGATIVE NEGATIVE 12/20/2024 3:59 PM ORACLE E BUSINESS DEVELOPER [facility] GLUCOSE (U) NEGATIVE NEGATIVE 12/20/2024 3:59 PM ORACLE E BUSINESS DEVELOPER [facility] KETONES MG/DL (U) NEGATIVE NEGATIVE 12/20/2024 3:59 PM ORACLE E BUSINESS DEVELOPER [facility] UROBILINOGEN 0.2 0.2 - 1.0 EU/DL 12/20/2024 3:59 PM ORACLE E BUSINESS DEVELOPER [facility] BILIRUBIN (U) 1+(A) NEGATIVE 12/20/2024 3:59 PM ORACLE E BUSINESS DEVELOPER [facility] BLOOD (U) TRACE(A) NEGATIVE 12/20/2024 3:59 PM ORACLE E BUSINESS DEVELOPER [facility] URINE SPECIMEN OBTAINED BY CLEAN CATCH PROCEDURE / Unknown 12/20/2024 3:18 PM ORACLE E BUSINESS DEVELOPER us Randy Foreman MD URINE ORDERABLES Final R esult [address] [place] [address], * (ABNORMAL) COMPREHENSIVE METABOLIC PANEL (12/20/2024 3:18 PM ORACLE E BUSINESS DEVELOPER) GLUCOSE 94 70 - 99 MG/DL 12/20/2024 3:56 PM ORACLE E BUSINESS DEVELOPER [facility] BUN 5(L) 7 - 18 MG/DL 12/20/2024 3:56 PM ORACLE E BUSINESS DEVELOPER [facility] CREATININE S/P/B 0.94 0.50 - 1.20 MG/DL 12/20/2024 3:56 PM ORACLE E BUSINESS DEVELOPER [facility] SODIUM S/P/B 142 136 - 145 MMOL/L 12/20/2024 3:56 PM ORACLE E BUSINESS DEVELOPER [facility] POTASSIUM S/P/B 3.3(L) 3.5 - 5.1 MMOL/L 12/20/2024 3:56 PM ORACLE E BUSINESS DEVELOPER [facility] CHLORIDE S/P/B 105 100 - 108 MMOL/L 12/20/2024 3:56 PM ORACLE E BUSINESS DEVELOPER [facility] CO2 23.9 21.0 - 32.0 MMOL/L 12/20/2024 3:56 PM ORACLE E BUSINESS DEVELOPER [facility] CALCIUM S/P/B 8.9 8.5 - 10.1 MG/DL 12/20/2024 3:56 PM ORACLE E BUSINESS DEVELOPER [facility] BILIRUBIN TOTAL S/P/B 0.5 0.2 - 1.2 MG/DL 12/20/2024 3:56 PM ORACLE E BUSINESS DEVELOPER [facility] Comment: THIS ASSAY IS NOT RECOMMENDED FOR PATIENTS UNDERGOING TREATMENT WITH ELTROMBOPAG DUE TO THE POTENTIAL FOR FALSELY ELEVATED RESULTS. TOTAL PROTEIN S/P/B 7.4 6.4 - 8.2 G/DL 12/20/2024 3:56 PM ORACLE E BUSINESS DEVELOPER [facility] ALBUMIN S/P/B 4.0 3.4 - 5.0 G/DL 12/20/2024 3:56 PM ORACLE E BUSINESS DEVELOPER [facility] AST 22 15 - 37 U/L 12/20/2024 3:56 PM ORACLE E BUSINESS DEVELOPER [facility] ALT 35 14 - 55 U/L 12/20/2024 3:56 PM ORACLE E BUSINESS DEVELOPER [facility] ALKALINE PHOSPHATASE S/P/B 85 50 - 136 U/L 12/20/2024 3:56 PM ORACLE E BUSINESS DEVELOPER [facility] ANION GAP 13.1 5.0 - 15.0 MMOL/L 12/20/2024 3:56 PM ORACLE E BUSINESS DEVELOPER [facility] BUN CREATININE RATIO 5.3(L) 6 - 26 12/20/2024 3:56 PM ORACLE E BUSINESS DEVELOPER [facility] A/G RATIO 1.2 1.0 - 2.5 RATIO 12/20/2024 3:56 PM ORACLE E BUSINESS DEVELOPER [facility] GFR ESTIMATE 77(L) >90 ML/MIN/1.7 3 M2 12/20/2024 3:56 PM ORACLE E BUSINESS DEVELOPER [facility] Comment: NOTE: eGFR is not calculated for patients <18 years of age. This is an estimated GFR calculation using the new CKD EPI creatinine equation without race and so does not require a correction factor for race. This estimated GFR should not be used for calculating drug doses. 12/20/2024 3:18 PM ORACLE E BUSINESS DEVELOPER us Randy Foreman MD LABORATORY Final Re sult [address] [place] [address], * CHORIONIC GONADOTROPIN HCG QL (12/20/2024 3:18 PM ORACLE E BUSINESS DEVELOPER) Pathologist [facility] PREG SCREEN-SERUM NEGATIVE NEGATIVE 12/20/2024 3:52 PM ORACLE E BUSINESS DEVELOPER [facility] 12/20/2024 3:18 PM ORACLE E BUSINESS DEVELOPER us Randy Foreman MD LABORATORY Final Re sult [facility] [address] [place] [address], [place] * CBC W/DIFF AUTOMATED (12/20/2024 3:18 PM ORACLE E BUSINESS DEVELOPER) [facility] WBC 6.36 4.50 - 11.00 x10'3/uL 12/20/2024 3:38 PM [facility] RBC 4.97 4.00 - 5.20 x10'6/uL 12/20/2024 3:38 PM [facility] HGB 15.3 12.0 - 16.0 G/DL 12/20/2024 3:38 PM [facility] HCT 45.3 38.0 - 48.0 % 12/20/2024 3:38 PM [facility] MCV 91.1 80.0 - 100.0 FL 12/20/2024 3:38 PM [facility] MCH 30.8 26.0 - 34.0 PG 12/20/2024 3:38 PM [facility] MCHC 33.8 31.0 - 37.0 G/DL 12/20/2024 3:38 PM ORACLE E BUSINESS DEVELOPER [facility] RDW 12.5 11.6 - 14.8 % 12/20/2024 3:38 PM [facility] PLT 322 130 - 400 x10'3/uL 12/20/2024 3:38 PM [facility] MPV 9.9 7.0 - 12.0 FL 12/20/2024 3:38 PM ORACLE E BUSINESS DEVELOPER [facility] CBC COMMENT AUTOMATED RBC MORPHOLOGY AND PLATELET EVALUATION NORMAL 12/20/2024 3:38 PM [facility] NEUTROPHILS % 51.9 40.0 - 74.0 % 12/20/2024 3:38 PM [facility] LYMPHOCYTES % 39.8 14.0 - 46.0 % 12/20/2024 3:38 PM [facility] MONOCYTES % 5.0 4.0 - 13.0 % 12/20/2024 3:38 PM [facility] EOSINOPHILS 2.2 0.0 - 7.0 % 12/20/2024 3:38 PM [facility] BASOPHILS 0.8 0.0 - 3.0 % 12/20/2024 3:38 PM [facility] IMMATURE GRANS % 0.3 0.0 - 0.43 % 12/20/2024 3:38 PM [facility] NRBC % 0.0 % 12/20/2024 3:38 PM [facility] ABS. NEUTROPHILS TOTAL 3.30 1.69 - 7.81 x10'3/uL 12/20/2024 3:38 PM [facility] ABS. LYMPHOCYTES 2.53 0.21 - 5.42 x10'3/uL 12/20/2024 3:38 PM [facility] ABS. MONOCYTES 0.32 0.04 - 1.37 x10'3/uL 12/20/2024 3:38 PM [facility] ABS. EOSINOPHILS 0.14 0.00 - 0.68 x10'3/uL 12/20/2024 3:38 PM [facility] ABS. BASOPHILS 0.05 0.00 - 0.08 x10'3/uL 12/20/2024 3:38 PM [facility] ABS. IMMATURE GRANULOCYTES 0.02 0.00 - 0.06 x10'3/uL 12/20/2024 3:38 PM [facility] ABS. NUCLEATED RBC'S 0.00 0.00 - 0.01 x10'3/uL 12/20/2024 3:38 PM ORACLE E BUSINESS DEVELOPER [facility] 12/20/2024 3:18 PM ORACLE E BUSINESS DEVELOPER Randy Foreman MD LABORATORY Final Re sult Performing Organization Address [facility] [address]/[facility] Co de Phone Number [facility] [address] [place] [address], * MAGNESIUM (12/20/2024 3:18 PM ORACLE E BUSINESS DEVELOPER) MAGNESIUM 1.8 1.8 - 2.4 MG/DL 12/20/2024 3:56 PM ORACLE E BUSINESS DEVELOPER [facility] 12/20/2024 3:18 PM ORACLE E BUSINESS DEVELOPER Randy Foreman MD LABORATORY Final Re sult Performing Organization Address [facility] Co de Phone Number [facility] [address] [place] [address], * LIPASE (12/20/2024 3:18 PM ORACLE E BUSINESS DEVELOPER) LIPASE 23 16 - 77 UNITS/L 12/20/2024 3:56 PM ORACLE E BUSINESS DEVELOPER [facility] 12/20/2024 3:18 PM ORACLE E BUSINESS DEVELOPER Randy Foreman MD LABORATORY Final Re sult Performing Organization Address [facility] [address]/[facility] Co de Phone Number [facility] [address] [place] [address], from Last 3 Months Insurance [employer] Advance Directives * Full Code (Latest Code Status on File) Date Activated Date Inactivated Comments 05/13/2023 12:39 AM 05/22/2023 6:40 PM Care Teams Mortgage Closing Clerk Relationship Specialty Start Date End Date Randy Antonio MD [address] [place] [id number] PCP - General PEDIATRICS 05/02/22
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
--- OUTSIDE RECORDS SUMMARY | 2024-12-28 13:36 | XMS_ITS | Referral Summary ---
Author Organization [facility] Address [address] [place] [address] Care Team Providers Care Network Liaison Name Role Phone Justin Antonio MD Primary Care Provider [phone] Source Comments [facility],non-owned Affiliates and Associated Physician Practices is amultiple site organization consisting of ambulatory clinics and hospital sitesin [place], [place], [place] and [place]. This disclosure is being madepursuant to the Care Everywhere program and may not contain all information available regarding this patient. Last updated 18.[facility] Encounters Date Type Department Care Team Description 12/20/2024 Telephone [facility] Weight Management Services [address] [place] [address], [facility] [address] [place] [address] Alicia Caceres, RN Returned Call 11/16/2024 Refill [facility] [address], [address] [place], [place] [id number] Cameron Clifton MD Refill Request from Last 3 Months Allergies Active Allergy Reactions Criticality Noted Date Comments Ciprofloxacin Urticaria Medium 09/01/2024 Penicillins Anaphylaxis High 06/23/2010 Red Dye GI Discomfort 06/23/2010 Sulfa Drugs Unknown 06/23/2010 Medications * Be aware that medications may not be up to date on this document. Alwaysverify current medications with the patient. Medication Sig Dispensed Refills Start Date End Date Status traZODone (DESYREL) 50 MG tablet Take 3 (three) tablets by mouth nightly as needed for Insomnia Active medroxyPROGESTERon e (DEPO-PROVERA) 150 MG/ML prefilled syringe Inject 150 (one hundred fifty) mg into muscle Every 90 days Active acetaminophen (TYLENOL) 160 MG/5ML solution Take 31.25 mL by mouth every 8 hours 09/11/2020 Active clonazePAM (KlonoPIN) 2 MG tablet Take 1 (one) tablet by mouth 2 times daily Active gabapentin (Neurontin) 400 MG capsule Take 1 (one) capsule by mouth 3 times daily Active ferrous sulfate 325 (65 FE) MG tablet Take 1 (one) tablet by mouth 2 times daily with morning and evening meal Active cyanocobalamin (Vitamin B-12) injection Inject 1,000 (one thousand) mcg into muscle every 30 days Active tiZANidine (Zanaflex) 4 MG tablet Take 1 (one) tablet by mouth every 8 hours as needed for Muscle Spasms Active QUEtiapine (SEROquel) 25 MG tablet Take 0.5 (one-half) tablet to 1 (one) tablet by mouth nightly as needed (insomnia) Active buPROPion SR 12hr (Wellbutrin SR) 200 MG tablet Take 1 (one) tablet by mouth 2 times daily Active acetaminophen (Tylenol) 160 MG/5ML solution Take 31.25 mL by mouth every 8 hours 09/03/2024 Active ondansetron, disintegrating, (Zofran ODT) 4 MG tablet Take 1 (one) tablet by mouth every 6 hours as needed for Nausea/Vomiting Allow tablet to dissolve on the tongue 20 tablet 09/03/2024 Active vitamin D, ergocalciferol, (Drisdol) 1.25 MG (93081 UT) capsule Take 1 (one) capsule by mouth every 7 days 12 capsule 09/03/2024 Active omeprazole (PriLOSEC) 20 MG capsule Take 1 (one) capsule by mouth once daily 30 capsule 09/03/2024 Active senna-docusate (Senokot-S) 8.6-50 MG tablet Take 1 (one) tablet by mouth 2 times daily as needed for Constipation 09/03/2024 Active magnesium hydroxide (Milk Of Magnesia) 400 MG/5ML suspension Take 15 mL by mouth as needed for Constipation 09/03/2024 Active oxyCODONE (Roxicodone) 5 MG/5ML oral solutionIndication s:Morbid obesity (HCC) Take 5 mL by mouth every 6 hours as needed for Pain 120 mL 09/03/2024 Active methocarbamol (Robaxin) 750 MG tablet Take 1 (one) tablet by mouth nightly as needed for Muscle Spasms 30 tablet 09/24/2024 Active Active Problems Problem Noted Date Diagnosed Date Abdominal pain, epigastric 08/09/2022 PUD (peptic ulcer disease) 07/25/2021 History of gastric bypass 07/25/2021 Free intraperitoneal air 09/10/2020 Resolved Problems Problem Noted Date Diagnosed Date Resolved Date Upper abdominal pain 07/25/2021 021 Social History Tobacco Use Types Packs/Day Years Used Date Smoking Tobacco: Former Cigarettes Smokeless Tobacco: Never Tobacco Cessation:Counseling Given: No Alcohol Use Standard Drinks/Week Comments Not Currently 0 (1 standard drink = 0.6 oz pur e alcohol) socially, not often Hunger Vital Sign Answer Date Recorded Within the past 12 months, y ou worried that your food would run out before you got the money to buy more. Never true 08/09/20 Within the past 12 months, t he food you bought just didn't last and you didn't have money to get more. Never true 08/09/2022 Sex and Gender Information Value Date Recorded Sex Assigned at Not on file Gender Identity Not on file Sexual Orientation Not on file Last Filed Vital Signs Vital Sign Reading Time Taken Comments Blood Pressure 110/78 09/24/2024 8:22 AM OCCUP THER Pulse 90 09/24/2024 8:22 AM OCCUP THER Temperature 36.1 C (97 F) 09/24/2024 8:22 AM OCCUP THER Respiratory Rate 18 09/03/2024 7:41 AM CDT Oxygen Saturation 97% 09/24/2024 8:22 AM OCCUP THER Inhaled Oxygen Concentration - - Weight 88.7 kg (195 lb 9.6 oz) 09/24/2024 8:22 A M OCCUP THER Height 167.6 cm (5' 6 ) 09/24/2024 8:22 AM OCCUP THER Body Mass Index 31.57 09/24/2024 8:22 AM OCCUP THER Functional Status Functional Status Response Date of Assess ment Is person deaf or have serious hearing difficult y? No 09/01/2024 Is person blind or have serious difficulty seein g? No 09/01/2024 Does person have serious dif ficulty walking/climbing stairs? No 09/01/2024 Does person have difficulty dressing/bathing? No 09/01/2024 Does person have difficulty doing errands alone? No 09/01/2024 Cognitive Status Response Date of Assessm ent Does person have difficulty concentrating/remembering/making decisions? No 09/01/2024 Plan of Treatment Not on file Procedures Procedure Name Priority Date/Time Associated Diagnosis Comments BASIC METABOLIC PANEL (CALCIUM TOTAL) AM Draw 09/03/2024 4:41 AM CDT Abdominal pain, epigastric History of gastric bypass HIV-1 HIV-2 ANTIBODY + HIV P24 AG PANEL STAT 08/08/2022 6:18 PM CDT from Last 3 Months or Most Recently Relevant to Health Maintenance Results * (ABNORMAL) BASIC METABOLIC PANEL (CALCIUM TOTAL) (09/03/2024 4:41 AM CDT) Glucose 145(H) 70 - 99 mg/dL 09/03/2024 5:26 AM CDT [facility] Sodium 134(L) 136 - 145 mmol/L 09/03/2024 5:26 AM CDT [facility] Potassium 4.3 3.5 - 5.1 mmol/L 09/03/2024 5:26 AM CDT [facility] Chloride 108(H) 98 - 107 mmol/L 09/03/2024 5:26 AM CDT [facility] CO2 20(L) 22 - 29 mmol/L 09/03/2024 5:26 AM CDT [facility] Calcium 8.8 8.4 - 10.4 mg/dL 09/03/2024 5:26 AM CDT [facility] Anion Gap 6 6 - 16 mmol/L 09/03/2024 5:26 AM CDT [facility] BUN 5(L) 5.3 - 18.7 mg/dL 09/03/2024 5:26 AM CDT [facility] Creatinine 0.66 0.57 - 1.11 mg/dL 09/03/2024 5:26 AM CDT [facility] eGFR by CKD-EPI >90 >=90 mL/min/1.7 3 m2 09/03/2024 5:26 AM CDT [facility] Blood BLOOD SPECIMEN / Unknown Venipuncture / Unknown 09/03/2024 4:41 AM CDT 09/03/2024 4:47 AM CDT Cameron Clifton MD LAB - CHEMISTRY TEODORA JAMESCHIRAG Performing Organization Address City/[facility]/ZIP Co de Phone Number [facility] [address] [place] [address] * HIV-1 HIV-2 ANTIBODY + HIV P24 AG PANEL (08/08/2022 6:18 PM CDT) HIV1/2 Ab + P24 Ag Non Reactive Non Reactive 08/08/2022 7:15 PM CDT [facility] Blood BLOOD SPECIMEN / Unknown Venipuncture / Unknown 08/08/2022 6:18 PM CDT 08/08/2022 6:25 PM CDT Narrative [facility] - 08/08/2022 7:15 PM CDT No Laboratory evidence of HIV infection. Liana Hui MD LAB - CHEMISTRY TEODORA NORIEGA Performing Organization Address [facility] Co de Phone Number [facility] [address] [place], [place] [phone] from Last 3 Months or Most Recently Relevant to Health Maintenance Advance Directives * Full Code (Latest Code Status on File) Date Activated Date Inactivated Comments 08/31/2024 10:15 PM 09/03/2024 6:52 PM * Full Code Date Activated Date Inactivated Comments 08/09/2022 7:56 AM 08/09/2022 5:50 PM * Full Code Date Activated Date Inactivated Comments 07/26/2021 1:35 AM 07/26/2021 4:42 PM * Full Code Date Activated Date Inactivated Comments 07/25/2021 11:34 PM 07/26/2021 1:35 AM * Full Code Date Activated Date Inactivated Comments 09/10/2020 5:01 AM 09/12/2020 7:41 PM Care Teams Network Liaison Relationship Specialty Start Date End Date Justin Antonio MD [address] [place] [address] PCP - General 10/15/18
--- OUTSIDE RECORDS SUMMARY | 2024-12-28 13:37 | XMS_ITS ---
Author Organization [facility] Address [address] [place] [id number] Care Team Providers Care Cigar Head Pegger Name Role Phone Marisela Randy Primary Care Provider [phone] REASON FOR VISIT Clonazepam Refill Medications Medication SIG (Take, Route, Fr equency, Duration) Notes Start Date End Date Status clonazePAM 2 MG 1 Oral two times a day; Duration: 30 days As needed 12/11/2024 Active Encounters Encounter Location Date Provider Diagnosis [address] [address] 12/09/2024 Randy Antonio Generalized anxiety disorder F41.1 Assessments Encounter Date Diagnosis (ICD Code) Assessment Notes Treat ment Notes Treatment Clinical Notes 12/09/2024 Generalized anxiety disorder (ICD-10 - F41.1) Plan Of Treatment Medication Medication Name Sig Start Date Stop Date Notes clonazePAM 2 MG 1 Oral two times a day; Duration: 30 days 12/11/2024 Next Appt Details Provider Name:Randy Gonsalez en, 01/25/2025 03:00:00 PM, [address] [place] [address], [id number], [phone] Progress Notes * Shaquille CHEEKB:1980 (44 yo F)Acc No.[id number]:12/09/2024 Patient: Brian Niyah HUTSON :1980 A ge:44 Y S ex:Female Phone: Address:[address], [place], [address] * Refills Refill clonazePAM Tablet, 2 MG, Oral, 60 Tablet, 1, two times a day, As needed, 30 days, Refills=0 * true * Date: Generated for Amy adams/Niki/Boitting on: 0 12/28/2024 01:36 PM BALLASTER
--- OUTSIDE RECORDS SUMMARY | 2024-12-28 13:37 | XMS_ITS | Clinical Summary ---
Author Organization [facility] Address [address] [place] [address] Care Team Providers Care Tree Farmer Name Role Phone Randy Antonio MD Primary Care Provider [phone] Allergies Active Allergy Reactions Criticality Noted Date Comments Ciprofloxacin Swollen tongue High 07/10/2022 Penicillins Anaphylaxis High 06/23/2010 Red Dye Stomach upset Low 06/23/2010 Sulfa (Sulfonamide Antibiotics) Rash Medium 06/18 Medications buPROPion SR (WELLBUTRIN SR) 150 mg 12 hr tabletIndicatio ns:Anxiety with Depression Take 150 mg by mouth daily Active medroxyPROGESTE Nicolas (medroxyPROGEST ERone) 150 mg/mL injection Inject 150 mg into the muscle as instructed every 3 (three) months Active traZODone (DESYREL) 50 mg tabletIndicatio ns:Fibromyalgia Take 1-2 tablets (50-100 mg total) by mouth nightly as needed for sleep 180 tablet 3 2 Active omeprazole (PriLOSEC) 20 mg capsule Take 1 capsule (20 mg total) by mouth 2 (two) times a day 180 capsule 3 2 Active tiZANidine (ZANAFLEX) 4 mg tablet Take 1 tablet (4 mg total) by mouth every 8 (eight) hours as needed for muscle spasms 30 tablet 2 Active acetaminophen (TYLENOL) 500 mg tabletIndicatio ns:Pain Take 1,000 mg by mouth every 6 (six) hours as needed for pain (Fibromyalgia) Active cloNIDine (CATAPRES) 0.1 mg tabletIndicatio ns:anxiety Take 0.1 mg by mouth 2 (two) times a day Active butalbital-acet aminophen-caffe ine (ESGIC) 50-325-40 mg per tablet Take 1 tablet by mouth every 4 (four) hours as needed for headaches for up to 10 days 10 tablet 2 Active diazePAM (VALIUM) 5 mg tabletIndicatio ns:Alcohol Withdrawal Syndrome Take 1 tablet (5 mg total) by mouth every 6 (six) hours as needed for anxiety (withdrawal symptoms) for up to 20 doses 20 tablet 2 Active Active Problems Problem Noted Date Diagnosed Date Vasovagal syncope 07/10/2022 Headache 02/28/2022 Anemia 02/27/2022 Alcohol use with withdrawal 02/27/2022 Fibromyalgia 12/18/2021 Assessment & Plan (12/18/2021 5:37 PM VIBRATION ANALYST): Will obtain additional labs looking for other connective tissue diseases that were not known at the time of diagnosis. H/O gastric bypass 12/18/2021 Assessment & Plan (12/18/2021 5:37 PM VIBRATION ANALYST): Need to obtain routine labs to rule out nutritional deficiencies from the bypass. PUD (peptic ulcer disease) 07/25/2021 Free intraperitoneal air 09/10/2020 Morbid obesity (CMS/HCC) 01/10/2011 Immunizations Name Administration Dates Next Due Pfizer SARS-CoV-2 Monovalent Vaccination (12+ Yrs) PURPLE 04/03/2021,03/12/2021 Surgical History Surgery Date Site/Laterality Comments ABDOMINAL SURGERY COLON SURGERY GASTRECTOMY Family History Medical History Relation Name Comments Depression Brother Drug abuse Brother Mental illness Brother Alcohol abuse Father Early Father Heart attack Father Heart disease Father Cancer Maternal Grandfather Miscarriages / Stillbirths Mother Vision loss Mother Relation Name Status Comments Brother Father Maternal Grandfather Mother Social History Tobacco Use Types Packs/Day Years Used Date Smoking Tobacco: Every Day Cigarettes 0.3 3 Vaping Smokeless Tobacco: Current Tobacco Cessation:Ready to Q uit: No; Counseling Given: No AUDIT-C Answer Date Recorded Q1: How often do you have a drink containing alcohol? 4 or more times a week 07/10/2022 Q2: How many drinks containi ng alcohol do you have on a typical day when you are drinking? 10 or more Q3: How often do you have si x or more drinks on one occasion? Daily or almost daily 07/10/2022 PHQ-2 Answer Date Recorded PHQ-2 Total Score 1 12/18/2021 Personal Safety Answer Date Recorded Getting School Help Needed Not on file 11/21 Comments No Sex and Gender Information Value Date Recorded Sex Assigned at Not on file Legal Sex Female 8:58 AM VIBRATION ANALYST Gender Identity Not on file Sexual Orientation Not on file Obstetrics History Last Filed Vital Signs Vital Sign Reading Time Taken Comments Blood Pressure 125/84 07/13/2022 7:34 AM CDT Pulse 80 07/13/2022 7:34 AM CDT Temperature 36.4 C (97.5 F) 07/13/2022 7:34 AM CDT Respiratory Rate 12 07/13/2022 8:00 AM CDT Oxygen Saturation 96% 07/13/2022 7:34 AM CDT Inhaled Oxygen Concentration - - Weight 81.8 kg (180 lb 5.4 oz) 07/10/2022 5:04 P M CDT Height 167.6 cm (5' 6 ) 07/10/2022 5:04 PM CDT Body Mass Index 29.11 07/10/2022 5:04 PM CDT Plan of Treatment Health Maintenance Due Date Last Done Comments Breast Cancer Screening-Mammogram 1980 Cervical Cancer Screening 1980 Hepatitis C Screening 1981 Pneumococcal vaccine <65 (1 of 2 - PCV) 1987 Varicella Vaccines (1 of 2 - 13+ 2-dose series) 1994 Hepatitis B Screening 1999 Depression Screening 12/18/2022 12/18/2021 Regular Well Visit/Exam 18-64 12/18/2022 12/18/2021 Covid-19 Vaccine (3 - 2023-2 5 season) 2024 04/03/2021, 03/12/2021 Influenza Vaccine (#1) 2024 DTaP/Tdap/Td Vaccine (2 - Td or Tdap) 07/15/2032 07/15/2022 HPV Vaccines Aged Out No longer eligi ble based on patient's age to complete this topic Insurance [facility] CHOICE PLUS CHOICE PLUS Advance Directives For more information, please contact: [phone] * Full Code (Latest Code Status on File) Date Activated Date Inactivated Comments 02/27/2022 11:29 AM 03/02/2022 8:13 PM Care Teams Tree Farmer Relationship Specialty Start Date End Date Randy Antonio MD [address] [place] [address] PCP - General Pediatrics 01/05/24
--- OUTSIDE RECORDS SUMMARY | 2024-12-28 13:37 | XMS_ITS | Referral Summary ---
Author Organization [facility] Jarrod Guevara Address [address] [place] [address] Care Team Providers Care Automobile Bumper Straightener Name Role Phone Randy Antonio MD Primary Care Provider [phone] Allergies Active Allergy Reactions Criticality Noted Date [...] 12/18/2021 Assessment & Plan (12/18/2021 5:37 PM NURSE ADVOCATE): Will obtain additional labs looking for other connective tissue diseases that were not known at the time of diagnosis. H/O gastric bypass 12/18/2021 Assessment & Plan (12/18/2021 5:37 PM NURSE ADVOCATE): Need to obtain routine labs to rule out nutritional deficiencies from the bypass. PUD (peptic ulcer disease) 07/25/2021 Free intraperitoneal air 09/10/2020 Morbid obesity (CMS/HCC) 01/10/2011 Immunizations Name Administration Dates Next Due Pfizer SARS-CoV-2 Monovalent Vaccination (12+ Yrs) PURPLE 04/03/2021,03/12/2021 Social History Tobacco Use Types Packs/Day Years [...] on file Legal Sex Female 8:58 AM NURSE ADVOCATE Gender Identity Not on file Sexual Orientation [...] 07/10/2022 5:04 PM CDT Plan of Treatment Not on file Insurance [facility] CHOICE PLUS [facility] HMO/PPO Address: [facility] [address] [place] [address] [facility]/PPO Address: [address] [address] [place] [address] Advance Directives For more information, please contact: [phone] * Full Code (Latest Code Status on File) Date Activated Date Inactivated Comments 02/27/2022 11:29 AM 03/02/2022 8:13 PM Care Teams Automobile Bumper Straightener Relationship Specialty Start Date End Date Randy Antonio MD [address] [place] [address] PCP - General Pediatrics 01/05/24
--- OUTSIDE RECORDS SUMMARY | 2024-12-28 13:37 | XMS_ITS | Clinical Summary ---
Author Organization [facility] Address [address] [place] [address] Care Team Providers Care Energy Broker Name Role Phone Justin Antonio MD Primary Care Provider [phone] Source Comments [facility],non-owned Affiliates and Associated Physician Practices is amultiple site organization consisting of ambulatory clinics and hospital sitesin [place], [place], [place] and [place]. This disclosure is being madepursuant to the Care Everywhere program and may not contain all information available regarding this patient. Last updated 18.[facility] Allergies Active Allergy Reactions Criticality Noted Date [...] Active vitamin D, ergocalciferol, (Drisdol) 1.25 MG (22859 UT) capsule Take 1 (one) capsule by [...] Resolved Date Upper abdominal pain 07/25/2021 021 Encounters Date Type Department Care Team Description 12/20/2024 Telephone [facility] [address], [address] [place] [address] Alicia Caceres RN Returned Call 11/16/2024 Refill [facility] [address], [address] [place] [address] Cameron Clifton MD Refill Request from Last 3 Months Family History Medical History Relation Name Comments Pulmonary Embolism Brother Cancer - Stomach Maternal Grandmother DVT - Deep Vein Thrombosis Mother Relation Name Status Comments Brother Maternal Grandmother Mother Social History Tobacco Use Types Packs/Day [...] Comments Blood Pressure 110/78 09/24/2024 8:22 AM CYLINDER BATCHER Pulse 90 09/24/2024 8:22 AM CYLINDER BATCHER Temperature 36.1 C (97 F) 09/24/2024 8:22 AM CYLINDER BATCHER Respiratory Rate 18 09/03/2024 7:41 AM CDT Oxygen Saturation 97% 09/24/2024 8:22 AM CYLINDER BATCHER Inhaled Oxygen Concentration - - Weight 88.7 kg (195 lb 9.6 oz) 09/24/2024 8:22 A M CYLINDER BATCHER Height 167.6 cm (5' 6 ) 09/24/2024 8:22 AM CYLINDER BATCHER Body Mass Index 31.57 09/24/2024 8:22 AM CYLINDER BATCHER Plan of Treatment Health Maintenance Due Date Last Done Comments LIPID TESTING 1980 MAMMOGRAM 1980 PAP SMEAR 1981 HEPATITIS C SCREENING 03/20/1999 DTAP/TDAP/TD VACCINES (1 - Tdap) 2000 HEPATITIS B VACCINE (1 of 3 - 19+ 3-dose series) 2000 COVID-19 VACCINE (2023- season) 2024 04/03/2021, 03/12/2021 INFLUENZA VACCINE (#1) 2024 10/28/2017, 2016 DEPRESSION SCREENING 11/17/2024 SCREENING FOR DIABETES 09/03/2027 , 09/03/2024, 09/03/2024, Additional history exists ZOSTER VACCINE (1 of 2) 2031 HIV SCREENING Completed 08/08/2022 HIB VACCINE Aged Out No longer eligi ble based on patient's age to complete this topic HPV VACCINE Aged Out No longer eligi ble based on patient's age to complete this topic MENINGOCOCCAL (Group B) VACCINE Aged Out No longer eligible based on patient's age to complete this topic MENINGOCOCCAL VACCINE Aged Out No jaki jerry eligible based on patient's age to complete this topic PNEUMOCOCCAL VACCINE Aged Out No long er eligible based on patient's age to complete this topic Procedures Procedure Name Priority Date/Time Associated Diagnosis [...] - 5.1 mmol/L 09/03/2024 5:26 AM CDT [facility] Chloride 108(H) 98 - 107 mmol/L 09/03/2024 5:26 AM CDT [facility] CO2 20(L) 22 - 29 mmol/L 09/03/2024 5:26 AM CDT [facility] Calcium 8.8 8.4 - 10.4 mg/dL 09/03/2024 5:26 AM CDT [facility] Anion Gap 6 6 - 16 mmol/L 09/03/2024 5:26 AM CDT [facility] BUN 5(L) 5.3 - 18.7 mg/dL 09/03/2024 5:26 AM CDT [facility] Creatinine 0.66 0.57 - 1.11 mg/dL 09/03/2024 5:26 AM CDT [facility] eGFR by CKD-EPI >90 >=90 mL/min/1.7 3 m2 09/03/2024 5:26 AM CDT [facility] Blood BLOOD SPECIMEN / Unknown Venipuncture / Unknown 09/03/2024 4:41 AM CDT 09/03/2024 4:47 AM CDT Cameron Clifton MD LAB - CHEMISTRY TEODORA NORIEGA Performing Organization Address [facility] Co de Phone Number [facility] [address] [place] [address] * HIV-1 HIV-2 ANTIBODY + HIV P24 AG PANEL (08/08/2022 6:18 PM CDT) [facility] HIV1/2 Ab + P24 Ag Non Reactive Non Reactive 08/08/2022 7:15 PM CDT [facility] Blood BLOOD SPECIMEN / Unknown Venipuncture / Unknown 08/08/2022 6:18 PM CDT 08/08/2022 6:25 PM CDT Narrative [facility] - 08/08/2022 7:15 PM CDT No Laboratory evidence of HIV infection. Liana Hui MD LAB - CHEMISTRY TEODORA NORIEGA Performing Organization Address [facility] Co de Phone Number [facility] [address] [place] [address] from Last 3 Months or Most Recently [...] 5:01 AM 09/12/2020 7:41 PM Care Teams Energy Broker Relationship Specialty Start Date End Date Justin Antonio MD [address] [place] [address] PCP - General 10/15/18
--- OUTSIDE RECORDS SUMMARY | 2024-12-28 13:37 | XMS_ITS | Patient Health Summary ---
Author Organization [facility] Address [address] [place] [address] Care Team Providers Care Level Vial Grinder Name Role Phone Justin Antonio MD Primary Care Provider [phone] Note from [facility],non-owned Affiliates and Associated Physician Practices is amultiple site organization consisting of ambulatory clinics and hospital sitesin [place], [place], [place] and [place]. This disclosure is being madepursuant to the Care Everywhere program and may not contain all information available regarding this patient. Last updated 18.[facility] Allergies * Ciprofloxacin(Urticaria) -Medium Criticality * Penicillins(Anaphylaxis) -High Criticality * Red Dye(GI Discomfort) * Sulfa Drugs(Unknown) Medications * Be aware that medications may not be up to date on this document. Alwaysverify current medications with the patient. * traZODone (DESYREL) 50 MG tablet Take 3 (three) tablets by mouth nightly as needed for Insomnia * medroxyPROGESTERone (DEPO-PROVERA) 150 MG/ML prefilled syringe Inject 150 (one hundred fifty) mg into muscle Every 90 days * acetaminophen (TYLENOL) 160 MG/5ML solution(Started 09/11/2020) Take 31.25 mL by mouth every 8 hours * clonazePAM (KlonoPIN) 2 MG tablet Take 1 (one) tablet by mouth 2 times daily * gabapentin (Neurontin) 400 MG capsule Take 1 (one) capsule by mouth 3 times daily * ferrous sulfate 325 (65 FE) MG tablet Take 1 (one) tablet by mouth 2 times daily with morning and evening meal * cyanocobalamin (Vitamin B-12) injection Inject 1,000 (one thousand) mcg into muscle every 30 days * tiZANidine (Zanaflex) 4 MG tablet Take 1 (one) tablet by mouth every 8 hours as needed for Muscle Spasms * QUEtiapine (SEROquel) 25 MG tablet Take 0.5 (one-half) tablet to 1 (one) tablet by mouth nightly as needed (insomnia) * buPROPion SR 12hr (Wellbutrin SR) 200 MG tablet Take 1 (one) tablet by mouth 2 times daily * acetaminophen (Tylenol) 160 MG/5ML solution(Started 09/03/2024) Take 31.25 mL by mouth every 8 hours * ondansetron, disintegrating, (Zofran ODT) 4 MG tablet(Started 09/03/2024) Take 1 (one) tablet by mouth every 6 hours as needed for Nausea/Vomiting Allow tablet to dissolve on the tongue * vitamin D, ergocalciferol, (Drisdol) 1.25 MG (82217 UT) capsule(Started 09/03/2024) Take 1 (one) capsule by mouth every 7 days * omeprazole (PriLOSEC) 20 MG capsule(Started 09/03/2024) Take 1 (one) capsule by mouth once daily * senna-docusate (Senokot-S) 8.6-50 MG tablet(Started 09/03/2024) Take 1 (one) tablet by mouth 2 times daily as needed for Constipation * magnesium hydroxide (Milk Of Magnesia) 400 MG/5ML suspension(Started 09/03/2024) Take 15 mL by mouth as needed for Constipation * oxyCODONE (Roxicodone) 5 MG/5ML oral solution(Started 09/03/2024) Take 5 mL by mouth every 6 hours as needed for Pain * methocarbamol (Robaxin) 750 MG tablet(Started 09/24/2024) Take 1 (one) tablet by mouth nightly as needed for Muscle Spasms Active Problems Problem Noted Date Diagnosed Date [...] Comments Blood Pressure 110/78 09/24/2024 8:22 AM CLIENT RELATIONS ASSOCIATE Pulse 90 09/24/2024 8:22 AM CLIENT RELATIONS ASSOCIATE Temperature 36.1 C (97 F) 09/24/2024 8:22 AM CLIENT RELATIONS ASSOCIATE Respiratory Rate 18 09/03/2024 7:41 AM CDT Oxygen Saturation 97% 09/24/2024 8:22 AM CLIENT RELATIONS ASSOCIATE Inhaled Oxygen Concentration - - Weight 88.7 kg (195 lb 9.6 oz) 09/24/2024 8:22 A M CLIENT RELATIONS ASSOCIATE Height 167.6 cm (5' 6 ) 09/24/2024 8:22 AM CLIENT RELATIONS ASSOCIATE Body Mass Index 31.57 09/24/2024 8:22 AM CLIENT RELATIONS ASSOCIATE Procedures * CBC W/O DIFFERENTIAL(Performed 09/03/2024) Performed for Abdominal pain, epigastric * GLUCOSE - POINT OF CARE(Performed 09/03/2024) * FL UGI SERIES(Performed 09/03/2024) Performed for Abdominal pain, epigastric, History of gastric bypass * GLUCOSE - POINT OF CARE(Performed 09/03/2024) * VITAMIN D 25-HYDROXY(Performed 09/03/2024) Performed for Abdominal pain, epigastric, History of gastric bypass * CBC W AUTO DIFFERENTIAL(Performed 09/03/2024) Performed for Abdominal pain, epigastric, History of gastric bypass * BASIC METABOLIC PANEL (CALCIUM TOTAL)(Performed 09/03/2024) Performed for Abdominal pain, epigastric, History of gastric bypass * GLUCOSE - POINT OF CARE(Performed 09/02/2024) * ENDOTRACHEAL TUBE NOTE(Performed 09/02/2024) * IA LAP,DIAGNOSTIC ABDOMEN(Performed 09/02/2024) * HELICOBACTER PYLORI UREASE (STL)(Performed 09/01/2024) Performed for Diagnosis deferred * IA ED EGD FLEX TRANSORAL DX(Performed 09/01/2024) * EGD(Performed 09/01/2024) * COMPREHENSIVE METABOLIC PANEL(Performed 09/01/2024) Performed for Abdominal pain, epigastric * CBC W/O DIFFERENTIAL(Performed 09/01/2024) Performed for Abdominal pain, epigastric * MAGNESIUM BLOOD(Performed 09/01/2024) Performed for Abdominal pain, epigastric * CT ABDOMEN PELVIS W CONTRAST(Performed 08/31/2024) Performed for Abdominal pain, epigastric * HCG BLOOD QUALITATIVE(Performed 08/31/2024) * LACTIC ACID BLOOD REFLEX TO REPEAT(Performed 08/31/2024) * LIPASE BLOOD(Performed 08/31/2024) * COMPREHENSIVE METABOLIC PANEL(Performed 08/31/2024) * CBC W AUTO DIFFERENTIAL(Performed 08/31/2024) * IA ED EGD FLEX TRANSORAL DX(Performed 08/09/2022) * EGD(Performed 08/09/2022) * CT ABDOMEN PELVIS W CONTRAST(Performed 08/08/2022) Performed for Abdominal pain, epigastric, History of gastric bypass * URINALYSIS REFLEX TO MICROSCOPIC NO CULTURE(Performed 08/08/2022) * LACTIC ACID BLOOD REFLEX TO REPEAT(Performed 08/08/2022) * PT-INR(Performed 08/08/2022) * LIPASE BLOOD(Performed 08/08/2022) * COMPREHENSIVE METABOLIC PANEL(Performed 08/08/2022) * CBC W AUTO DIFFERENTIAL(Performed 08/08/2022) * HCG BLOOD QUALITATIVE(Performed 08/08/2022) * HIV-1 HIV-2 ANTIBODY + HIV P24 AG PANEL(Performed 08/08/2022) * HELICOBACTER PYLORI UREASE (STL)(Performed 07/27/2021) Performed for Diagnosis unknown * EGD(Performed 07/27/2021) Performed for Morbid obesity due to excess calories (HCC), S/P bariatric surgery, Postoperative follow-up, Other specified intestinal malabsorption (HCC) * IA ED EGD FLEX TRANSORAL DX(Performed 07/27/2021) * BASIC METABOLIC PANEL (CALCIUM TOTAL)(Performed 07/27/2021) Performed for Fever, unspecified fever cause * CBC W AUTO DIFFERENTIAL(Performed 07/27/2021) Performed for Fever, unspecified fever cause * US ABDOMEN LIMITED(Performed 07/26/2021) Performed for Upper abdominal pain * INFLUENZA A+B+RSV PCR PANEL(Performed 07/26/2021) Performed for Fever, unspecified fever cause * XR CHEST 1VW PORTABLE(Performed 07/26/2021) Performed for Fever, unspecified fever cause * SARS-COV-2 (COVID-19) IN HOUSE(Performed 07/26/2021) Performed for Fever, unspecified fever cause * CT ABDOMEN PELVIS W CONTRAST(Performed 07/25/2021) Performed for Upper abdominal pain * CULTURE BLOOD(Performed 07/25/2021) * CULTURE BLOOD(Performed 07/25/2021) * NICOTINE + METABOLITES URINE(Performed 07/25/2021) * URINALYSIS REFLEX TO MICROSCOPIC NO CULTURE(Performed 07/25/2021) * LACTIC ACID BLOOD REFLEX TO REPEAT(Performed 07/25/2021) * HCG BLOOD QUALITATIVE(Performed 07/25/2021) * LIPASE BLOOD(Performed 07/25/2021) * COMPREHENSIVE METABOLIC PANEL(Performed 07/25/2021) * CBC W AUTO DIFFERENTIAL(Performed 07/25/2021) * GLUCOSE - POINT OF CARE(Performed 09/12/2020) * CBC W AUTO DIFFERENTIAL(Performed 09/12/2020) Performed for Abdominal pain, epigastric, Free intraperitoneal air, Perforated ulcer (HCC) * BASIC METABOLIC PANEL (CALCIUM TOTAL)(Performed 09/12/2020) Performed for Abdominal pain, epigastric, Free intraperitoneal air, Perforated ulcer (HCC) * CBC W/O DIFFERENTIAL(Performed 09/11/2020) * GLUCOSE - POINT OF CARE(Performed 09/11/2020) * FL UGI SERIES(Performed 09/11/2020) Performed for Free intraperitoneal air, Perforated ulcer (HCC) * VITAMIN D 25-HYDROXY(Performed 09/11/2020) Performed for Abdominal pain, epigastric, Free intraperitoneal air, Perforated ulcer (HCC) * CBC W AUTO DIFFERENTIAL(Performed 09/11/2020) Performed for Abdominal pain, epigastric, Free intraperitoneal air, Perforated ulcer (HCC) * BASIC METABOLIC PANEL (CALCIUM TOTAL)(Performed 09/11/2020) Performed for Abdominal pain, epigastric, Free intraperitoneal air, Perforated ulcer (HCC) * BASIC METABOLIC PANEL (CALCIUM TOTAL)(Performed 09/10/2020) Performed for Abdominal pain, epigastric * CBC W/O DIFFERENTIAL(Performed 09/10/2020) Performed for Abdominal pain, epigastric * GLUCOSE - POINT OF CARE(Performed 09/10/2020) * ENDOTRACHEAL TUBE NOTE(Performed 09/10/2020) * IA LAP,DIAGNOSTIC ABDOMEN(Performed 09/10/2020) * EKG 12-LEAD(Performed 09/10/2020) Performed for Abdominal pain, epigastric * XR CHEST 1VW PORTABLE(Performed 09/09/2020) Performed for Abdominal pain, epigastric * TYPE + SCREEN PANEL(Performed 09/09/2020) * HCG BLOOD QUALITATIVE(Performed 09/09/2020) * LACTIC ACID BLOOD(Performed 09/09/2020) * TROPONIN I(Performed 09/09/2020) * COMPREHENSIVE METABOLIC PANEL(Performed 09/09/2020) * CBC W AUTO DIFFERENTIAL(Performed 09/09/2020) * CARDIAC EKG ORDER(Performed 12/26/2017) * TROPONIN I(Performed 12/26/2017) * XR CHEST 2VW(Performed 12/25/2017) Performed for Chest pain, unspecified type * COMPREHENSIVE METABOLIC PANEL(Performed 12/25/2017) * CBC W AUTO DIFFERENTIAL(Performed 12/25/2017) * TROPONIN I(Performed 12/25/2017) * EKG 12-LEAD(Performed 12/25/2017) Performed for Chest pain, unspecified type Results * (ABNORMAL) CBC W/O DIFFERENTIAL (09/03/2024 11:58 AM CDT) Only the most recent of4 resultswithin the time period is included. WBC 8.6 4.0 - 10.7 x10E9/L 09/03/2024 12:06 PM CDT [facility] RBC Count 3.51(L) 3.90 - 5.20 x10E12/L 09/03/2024 12:06 PM CDT [facility] Hemoglobin 10.8(L) 11.9 - 15.8 g/dL 09/03/2024 12:06 PM CDT [facility] Hematocrit 32.6(L) 34.8 - 46.1 % 09/03/2024 12:06 PM CDT [facility] MCV 92.9 80.0 - 98.0 fL 09/03/2024 12:06 PM CDT [facility] MCH 30.8 26.7 - 33.6 pg 09/03/2024 12:06 PM CDT [facility] MCHC 33.1 31.7 - 36.3 g/dL 09/03/2024 12:06 PM CDT [facility] RDW-CV 12.0 11.3 - 14.8 % 09/03/2024 12:06 PM CDT [facility] Platelet Count 221 150 - 420 x10E9/L 09/03/2024 12:06 PM CDT [facility] MPV 9.5 7.8 - 11.4 fL 09/03/2024 12:06 PM CDT [facility] Blood BLOOD SPECIMEN / Unknown Venipuncture / Unknown 09/03/2024 11:58 AM CDT 09/03/2024 12:03 PM CDT Alexandra Neva Hector MAID SUPERVISOR-FISH STRAIGHTENER LAB - HEM ATOLOGY ORDERABLES Performing Organization Address City/Va Hospital/ZIP Co de Phone Number [facility] [address] [place] [address] * (ABNORMAL) GLUCOSE - POINT OF CARE (09/03/2024 11:39 AM CDT) Only the most recent of6 resultswithin the time period is included. Pathologist [facility] Glucose WB/POC 113(H) 70 - 99 mg/dL 09/03/2024 11:07 PM CDT [facility] Specimen Type Cap Fingerstick 2023 11:07 PM CDT [facility] Blood BLOOD SPECIMEN / Unknown 09/03/2024 11:39 AM CDT 09/03/2024 11:07 PM CDT Can Torres [place] II, DO LAB - POINT OF CARE ORDERABLES Performing Organization Address City/Va Hospital/ZIP Co de Phone Number [facility] [address] [place] [address] * FL UGI SERIES WO KUB (09/03/2024 8:29 AM CDT) Only the most recent of2 resultswithin the time period is included. Anatomical Region Laterality Modality Abdomen Radiographic Mira ging 09/03/2024 9:11 AM CDT Impressions 09/03/2024 11:10 AM CDT IMPRESSION: Persistently elevated left hemidiaphragm. Angel-en-Y bypass without obstruction or extravasation. FLUOROSCOPY DOSE: 5.16 mGy Reference air kerma (ka,r). Fluoroscopy time: 34 seconds. Edited by Lauren Dominguez on 09/03/2024 9:26 AM > Interpreting Provider: Buck Bush MD on 09/03/2024 11:10 AM Narrative 09/03/2024 11:10 AM CDT PROCEDURE: FL UGI SERIES DATE/TIME OF EXAM: 09/03/2024 8:34 AM CLINICAL INFORMATION: None relevant/not provided if blank. Indication: R10.13: Epigastric pain Z98.84: Bariatric surgery status Additional History: COMPARISON: September 11, 2020 TECHNIQUE: Water-soluble contrast material FINDINGS: There is continued elevation of the left hemidiaphragm. The patient is status post Angel-en-Y. End-to-side anastomosis. The small bowel anastomotic loop has an approximate 4 cm blind-ending pouch. The Angel loop empties readily into the more distal small bowel loops. No distention of the excluded stomach. Gaseous distention of left upper quadrant colonic loops suggest ileus. Post cholecystectomy clips. Procedure Note Buck Bush MD - 09/03/2024 PROCEDURE: FL UGI SERIES DATE/TIME OF EXAM: 09/03/2024 8:34 AM CLINICAL INFORMATION: None relevant/not provided if blank. Indication: R10.13: Epigastric pain Z98.84: Bariatric surgery status Additional History: COMPARISON: September 11, 2020 TECHNIQUE: Water-soluble contrast material FINDINGS: There is continued elevation of the left hemidiaphragm. The patient is status post Angel-en-Y. End-to-side anastomosis. The small bowelanastomotic loop has an approximate 4 cm blind-ending pouch. The Angel loop empties readily into the more distal small bowel loops. No distention of the excluded stomach. Gaseous distention of left upper quadrant colonicloops suggest ileus. Post cholecystectomy clips. IMPRESSION: Persistently elevated left hemidiaphragm. Angel-en-Y bypass without obstruction or extravasation. FLUOROSCOPY DOSE: 5.16 mGy Reference air kerma (ka,r). Fluoroscopy time: 34 seconds. Edited by Lauren Dominguez on 09/03/2024 9:26 AM > Interpreting Provider: Buck Bush MD on 09/03/2024 11:10 AM Cameron Clifton MD FLUOROSCOPY ORDERABL ES * (ABNORMAL) VITAMIN D 25-HYDROXY (09/03/2024 4:41 AM CDT) Only the most recent of2 resultswithin the time period is included. Vitamin D, 25 Hydroxy 19.2(L) 30 - 80 ng/mL 09/03/2024 5:33 AM CDT [facility] Blood BLOOD SPECIMEN / Unknown Venipuncture / Unknown 09/03/2024 4:41 AM CDT 09/03/2024 4:47 AM CDT Narrative [facility] - 09/03/2024 5:33 AM CDT Vitamin D Status: Deficiency <20 ng/mL Insufficiency 20-30 ng/mL Sufficiency 30-100 ng/mL Toxicity >100 ng/mL Cameron Clifton MD LAB - CHEMISTRY TEODORA NORIEGA [facility] [address] [place] [address] * (ABNORMAL) CBC W AUTO DIFFERENTIAL (09/03/2024 4:41 AM CDT) Only the most recent of9 resultswithin the time period is included. WBC 8.2 4.0 - 10.7 x10E9/L 09/03/2024 5:44 AM CDT [facility] RBC Count 3.56(L) 3.90 - 5.20 x10E12/L 09/03/2024 5:44 AM CDT [facility] Hemoglobin 10.9(L) 11.9 - 15.8 g/dL 09/03/2024 5:44 AM CDT [facility] Hematocrit 32.7(L) 34.8 - 46.1 % 09/03/2024 5:44 AM CDT [facility] MCV 91.9 80.0 - 98.0 fL 09/03/2024 5:44 AM CDT [facility] MCH 30.6 26.7 - 33.6 pg 09/03/2024 5:44 AM CDT [facility] MCHC 33.3 31.7 - 36.3 g/dL 09/03/2024 5:44 AM CDT [facility] RDW-CV 11.9 11.3 - 14.8 % 09/03/2024 5:44 AM CDT [facility] Platelet Count 231 150 - 420 x10E9/L 09/03/2024 5:44 AM CDT [facility] MPV 10.0 7.8 - 11.4 fL 09/03/2024 5:44 AM CDT [facility] Neutrophil % 82.7(H) 41.0 - 74.0 % 09/03/2024 5:44 AM CDT [facility] Lymphocyte % 10.3(L) 17.0 - 47.0 % 09/03/2024 5:44 AM CDT [facility] Monocyte % 5.4 3.0 - 11.0 % 09/03/2024 5:44 AM CDT [facility] Eosinophil % 1.2 0.0 - 7.0 % 09/03/2024 5:44 AM CDT [facility] Basophil % 0.2 0.0 - 1.6 % 09/03/2024 5:44 AM CDT [facility] Immature Granulocytes % 0.2 0.0 - 1.0 % 09/03/2024 5:44 AM CDT [facility] Neutrophil Absolute 6.76 1.60 - 7.50 x10E9/L 09/03/2024 5:44 AM CDT [facility] Lymphocyte Absolute 0.84(L) 1.00 - 4.40 x10E9/L 09/03/2024 5:44 AM CDT [facility] Monocyte Absolute 0.44 0.15 - 1.00 x10E9/L 09/03/2024 5:44 AM CDT [facility] Eosinophil Absolute 0.10 0.00 - 0.60 x10E9/L 09/03/2024 5:44 AM CDT [facility] Basophil Absolute 0.02 0.00 - 0.13 x10E9/L 09/03/2024 5:44 AM CDT [facility] Blood BLOOD SPECIMEN / Unknown Venipuncture / Unknown 09/03/2024 4:41 AM CDT 09/03/2024 4:47 AM CDT Cameron Clifton MD LAB - HEMATOLOGY ORD ELIECER Performing Organization Address City/Va Hospital/ZIP Co de Phone Number [facility] [address] [place] [id number] * (ABNORMAL) BASIC METABOLIC PANEL (CALCIUM TOTAL) (09/03/2024 4:41 AM CDT) Only the most recent of5 resultswithin the time period is included. Pathologist [facility] Glucose 145(H) 70 - 99 mg/dL 09/03/2024 5:26 AM CDT [facility] Sodium 134(L) 136 - 145 mmol/L 09/03/2024 5:26 AM CDT [facility] Potassium 4.3 3.5 - 5.1 mmol/L 09/03/2024 5:26 AM CDT [facility] Chloride 108(H) 98 - 107 mmol/L 09/03/2024 5:26 AM CDT [facility] CO2 20(L) 22 - 29 mmol/L 09/03/2024 5:26 AM CDT [facility] Calcium 8.8 8.4 - 10.4 mg/dL 09/03/2024 5:26 AM CDT [facility] Anion Gap 6 6 - 16 mmol/L 09/03/2024 5:26 AM CDT [facility] BUN 5(L) 5.3 - 18.7 mg/dL 09/03/2024 5:26 AM CDT [facility] Creatinine 0.66 0.57 - 1.11 mg/dL 09/03/2024 5:26 AM CDT [facility] eGFR by CKD-EPI >90 >=90 mL/min/1.7 3 m2 09/03/2024 5:26 AM CDT [facility] Blood BLOOD SPECIMEN / Unknown Venipuncture / Unknown 09/03/2024 4:41 AM CDT 09/03/2024 4:47 AM CDT Cameron Clifton MD LAB - CHEMISTRY TEODORA NORIEGA [facility] [address] [place] [address] * ETT LINE PERFORMABLE (09/02/2024 11:04 AM CDT) Narrative Joaquina Monae APRN-CRNA - 09/02/2024 11:04 AM CDT Joaquina Monae APRN-CRNA 09/02/2024 11:05 AM Endotracheal Tube Placement: Patient Location: OR. Intubation Event Date/Time: 09/02/2024 10:45 AM Procedure: intubation (69309) Procedure Section: Sedation: under general anesthesia. Indications for Airway Management: anesthesia Procedure pretreatments used? No Induction: standard IV Patient Position: sniffing Mask Ventilation: easy. Blade Type: Video Blade Size: 3 Laryngoscopy View: grade 1 (full cords) Intubation Adjuncts: stylet and video laryngoscope Tube: endotracheal tube Placement: oral Tube type: cuff - inflated Tube Size (MM): 7 Depth of Insertion (CM): 22 Measured From: gums Cuff volume (mL): 8 Cuff Inflated With: air Number of Attempts: 1. Placement Verified By: direct visualization, bilateral breath sounds and CO2 monitor Tube secured with: adhesive tape. Dentition unchanged? Yes Difficult Airway? No. Procedure Start Time: 09/02/2024 10:45 AM. Staff Section Anesthesia Provider: Joaquina Monae APRN-CRNA, Performed the procedure Additional Comments: Atraumatic intubation . Michaela Pickett MD GENERAL ANESTHESIA O RDERAANTOINETTE * HELICOBACTER PYLORI UREASE (STL) (09/01/2024 9:58 AM CDT) Only the most recent of2 resultswithin the time period is included. Helicobacter pylori Urease Initial Negative Negative 09/02/2024 9:45 AM CDT [facility] Helicobacter pylori Urease Final Negative Negative 09/02/2024 9:45 AM CDT [facility] Microbiology GASTRIC ANTRAL BIOPSY SPECIMEN / Unknown 09/01/2024 9:58 AM CDT 09/01/2024 4:22 PM CDT Cameron Clifton MD LAB - MICROBIOLOGY O RDERABLES [facility] [address] [address] * EGD (09/01/2024 6:59 AM CDT) Report Endoscopy POC _ Patient Name: Niyah Sahy Procedure Date: 09/01/2024 6:59 AM Date of : 1980 Admit Type: Inpatient Age: 44 Gender: Female Attending MD: Cameron Clifton MD, _ Procedure: Upper GI endoscopy Indications: Epigastric abdominal pain Providers: Cameron Clifton MD (Doctor) Referring MD: Justin Antonio MD (Referring MD) Medicines: Monitored Anesthesia Care Complications: No immediate complications. _ Estimated Blood Loss: Estimated blood loss was minimal. Procedure: Pre-Anesthesia Assessment: - Prior to the procedure, a History and Physical was performed, and patient medications and allergies were reviewed. The patient's tolerance of previous anesthesia was also reviewed. The risks and benefits of the procedure and the sedation options and risks were discussed with the patient. All questions were answered, and informed consent was obtained. Prior Anticoagulants: The patient has taken no anticoagulant or antiplatelet agents. ASA Grade Assessment: III - A patient with severe systemic disease. After reviewing the risks and benefits, the patient was deemed in satisfactory condition to undergo the procedure. - Prior to the procedure, a History and Physical was performed, and patient medications and allergies were reviewed. The patient's tolerance of previous anesthesia was also reviewed. The risks and benefits of the procedure and the sedation options and risks were discussed with the patient. All questions were answered, and informed consent was obtained. Prior Anticoagulants: The patient has taken no anticoagulant or antiplatelet agents except for aspirin. ASA Grade Assessment: III - A patient with severe systemic disease. After reviewing the risks and benefits, the patient was deemed in satisfactory condition to undergo the procedure. After obtaining informed consent, the endoscope was passed under direct vision. Throughout the procedure, the patient's blood pressure, pulse, and oxygen saturations were monitored continuously. The Endoscope was introduced through the mouth, and advanced to the proximal jejunum. The upper GI endoscopy was accomplished without difficulty. The patient tolerated the procedure well. Findings: The Z-line was regular and was found 40 cm from the incisors. Localized mild inflammation was found in the gastric body. Biopsies were taken with a cold forceps for Helicobacter pylori testing. Estimated blood loss was minimal. To prevent bleeding after the biopsy, one hemostatic clip was successfully placed. There was no bleeding at the end of the procedure. Evidence of a gastric bypass was found. A gastric pouch with a 3.5 cm length from the GE junction to the gastrojejunal anastomosis was found. The staple line appeared intact. The gastrojejunal anastomosis was characterized by healthy appearing mucosa and erythema. This was traversed. The examined jejunum was normal. _ Impression: - Z-line regular, 40 cm from the incisors. - Gastritis. Biopsied. Clip was placed. - Gastric bypass with a pouch 3.5 cm in length and intact staple line. Gastrojejunal anastomosis characterized by healthy appearing mucosa and erythema. - Normal examined jejunum. Recommendation: - Return patient to [facility] for ongoing care. - NPO. - Continue present medications. - Await pathology results. Procedure Code(s): --- Professional --- 57530, Esophagogastroduo denoscopy, flexible, transoral; with biopsy, single or multiple --- Technical --- 78965, Esophagogastroduo denoscopy, flexible, transoral; with biopsy, single or multiple Diagnosis Code(s): --- Professional --- K29.70, Gastritis, unspecified, without bleeding Z98.84, Bariatric surgery status R10.13, Epigastric pain --- Technical --- K29.70, Gastritis, unspecified, without bleeding Z98.84, Bariatric surgery status R10.13, Epigastric pain CPT copyright 2020 [employer]. All rights reserved. The codes documented in this report are preliminary and upon purification operator helper review may be revised to meet current compliance requirements. Cameron Clifton ___ Cameron Clifton MD 09/01/2024 10:01:53 AM This report has been signed electronically. Number of Addenda: 0 Note Initiated On: 09/01/2024 6:59 AM [facility] 09/01/2024 6:59 AM CDT Narrative Procedure Note Cameron Clifton MD - 09/01/2024 10:02 AM CDT EGD completed. Normal bypass anatomy, no gastrojejunal ulcer, noobstruction, small pouch about 3 cm, Biopsies pending. A full PDF copy of the report with photos is in the results and/or mediatab for your review. Please refer to this for full details of theprocedure. -keep NPO -PPI, carafate -follow up on pathology -will review CT scans and will discuss plan with patient Cameron Clifton MD Cameron Clifton MD GI PROCEDURE ORDERAB LES [facility] [place] [address] * (ABNORMAL) COMPREHENSIVE METABOLIC PANEL (09/01/2024 3:03 AM CDT) Only the most recent of6 resultswithin the time period is included. [facility] Glucose 82 70 - 99 mg/dL 09/01/2024 3:57 AM CDT [facility] Sodium 136 136 - 145 mmol/L 09/01/2024 3:57 AM CDT [facility] Potassium 3.9 3.5 - 5.1 mmol/L 09/01/2024 3:57 AM CDT [facility] Chloride 108(H) 98 - 107 mmol/L 09/01/2024 3:57 AM CDT [facility] CO2 19(L) 22 - 29 mmol/L 09/01/2024 3:57 AM CDT [facility] Calcium 9.5 8.4 - 10.4 mg/dL 09/01/2024 3:57 AM CDT [facility] Anion Gap 9 6 - 16 mmol/L 09/01/2024 3:57 AM CDT [facility] BUN 5(L) 5.3 - 18.7 mg/dL 09/01/2024 3:57 AM CDT [facility] Creatinine 0.83 0.57 - 1.11 mg/dL 09/01/2024 3:57 AM CDT [facility] Alkaline Phosphatase 61 40 - 150 U/L 09/01/2024 3:57 AM CDT [facility] ALT 16 0 - 55 U/L 09/01/2024 3:57 AM CDT [facility] AST 22 5 - 34 U/L 09/01/2024 3:57 AM CDT [facility] Protein Total 7.0 6.4 - 8.3 gm/dL 09/01/2024 3:57 AM CDT [facility] Albumin 4.0 3.4 - 5.0 gm/dL 09/01/2024 3:57 AM CDT [facility] Bilirubin Total 0.5 0.2 - 1.2 mg/dL 09/01/2024 3:57 AM CDT [facility] eGFR by CKD-EPI 90 >=90 mL/min/1.7 3 m2 09/01/2024 3:57 AM CDT [facility] Blood BLOOD SPECIMEN / Unknown Venipuncture / Unknown 09/01/2024 3:03 AM CDT 09/01/2024 3:28 AM CDT Shellie Mcleod MD LAB - CHEMISTRY NONACande NORIEGA Performing Organization Address City/Va Hospital/ZIP Co de Phone Number [facility] [address] [place] [address] * MAGNESIUM BLOOD (09/01/2024 3:03 AM CDT) Magnesium 1.9 1.6 - 2.6 mg/dL 09/01/2024 3:57 AM CDT [facility] Blood BLOOD SPECIMEN / Unknown Venipuncture / Unknown 09/01/2024 3:03 AM CDT 09/01/2024 3:28 AM CDT Shellie Mcleod MD LAB - CHEMISTRY TEODORA NORIEGA Performing Organization Address [facility] Co de Phone Number [facility] [address] [place] [address] * CT ABDOMEN PELVIS W CONTRAST (08/31/2024 8:29 PM CDT) Only the most recent of3 resultswithin the time period is included. Anatomical Region Laterality Modality Abdomen, Pelvis Computed Tomogra phy 08/31/2024 8:41 PM CDT Impressions 08/31/2024 8:49 PM CDT IMPRESSION: No acute findings in the abdomen. Prior surgery. Please see above. Continued elevation of the left diaphragm similar to the previous study of August 08, 2022. > Interpreting Provider: Lalo Yo MD on 08/31/2024 8:49 PM Narrative 08/31/2024 8:49 PM CDT PROCEDURE: CT ABDOMEN PELVIS W CONTRAST DATE/TIME OF EXAM: 08/31/2024 8:38 PM CLINICAL INFORMATION: Abdominal pain, acute, nonlocalized, Abdominal pain, epigastric Indication: R10.13: Epigastric pain Additional History: COMPARISON: August 08, 2022 TECHNIQUE: CT of the abdomen and pelvis was performed following intravenous contrast utilizing standard protocol. CT dose reduction technique was used, including Automated Exposure Control. CONTRAST: 85 mL Isovue-370 FINDINGS: CT ABDOMEN: Surgical clips are present in the right upper quadrant consistent with a cholecystectomy. The left diaphragm is elevated similar to the previous examination of August 08, 2022. A surgical staple line is noted in the proximal stomach similar to the prior study. No dilated bowel loops can be identified in the upper abdomen. The liver, spleen and kidneys are stable in size. The coronal reformatted images show a trace of pericardial fluid or thickening inferior to the heart. This is a new finding. CT PELVIS: No free fluid can be seen in the pelvis. There are no dilated bowel loops in the pelvis. The bladder is smooth in outline but is not filled with the IV contrast on this limited single phase emergency study. The appendix is thought to be partially visible on the coronal reformatted images and is normal in size. A small nodule with low CT density and calcifications can be seen in the left adnexa. This is the approximate location of the left ovary on the previous study but it is smaller in size. Procedure Note Lalo Yo MD - 08/31/2024 PROCEDURE: CT ABDOMEN PELVIS W CONTRAST DATE/TIME OF EXAM: 08/31/2024 8:38 PM CLINICAL INFORMATION: Abdominal pain, acute, nonlocalized, Abdominalpain, epigastric Indication: R10.13: Epigastric pain Additional History: COMPARISON: August 08, 2022 TECHNIQUE: CT of the abdomen and pelvis was performed following intravenouscontrast utilizing standard protocol. CT dose reduction technique was used, including Automated ExposureControl. CONTRAST: 85 mL Isovue-370 FINDINGS: CT ABDOMEN: Surgical clips are present in the right upper quadrant consistent with a cholecystectomy. The left diaphragm is elevated similar to the previous examination of August 08, 2022. A surgical staple line is noted inthe proximal stomach similar to the prior study. No dilated bowel loops canbe identified in the upper abdomen. The liver, spleen and kidneys arestable in size. The coronal reformatted images show a trace of pericardialfluid or thickening inferior to the heart. This is a new finding. CT PELVIS: No free fluid can be seen in the pelvis. There are no dilated bowelloops in the pelvis. The bladder is smooth in outline but is not filled withthe IV contrast on this limited single phase emergency study. The appendixis thought to be partially visible on the coronal reformatted images and is normal in size. A small nodule with low CT density and calcificationscan be seen in the left adnexa. This is the approximate location of the left ovary on the previous study but it is smaller in size. IMPRESSION: No acute findings in the abdomen. Prior surgery. Please see above. Continued elevation of the left diaphragm similar to the previous studyof August 08, 2022. > Interpreting Provider: Lalo Yo MD on 08/31/2024 8:49 PM Lara Christie PA-C CT ORDERABLES * LACTIC ACID BLOOD REFLEX TO REPEAT (08/31/2024 5:45 PM CDT) Only the most recent of3 resultswithin the time period is included. Lactic Acid 1.4 <=2 mmol/L 08/31/2024 6:10 PM CDT [facility] Blood BLOOD SPECIMEN / Unknown Venipuncture / Unknown 08/31/2024 5:45 PM CDT 08/31/2024 5:55 PM CDT Lara Christie PA-C LAB - CHEMISTRY ORD ERABLES Performing Organization Address City/Va Hospital/[facility] Co de Phone Number [facility] [id number] [place] [address] * LIPASE BLOOD (08/31/2024 5:45 PM CDT) Only the most recent of3 resultswithin the time period is included. Pathologist [facility] Lipase 12 <60 U/L 08/31/2024 6:13 PM CDT [facility] Blood BLOOD SPECIMEN / Unknown Venipuncture / Unknown 08/31/2024 5:45 PM CDT 08/31/2024 5:55 PM CDT Lara Christie PA-C LAB - CHEMISTRY ORD ERABLES Performing Organization Address City/[facility] Hospital/[facility] Co de Phone Number [facility] [address] [place] [address] * HCG BLOOD QUALITATIVE (08/31/2024 5:45 PM CDT) Only the most recent of4 resultswithin the time period is included. Pathologist [facility] HCG Qual Serum Negative Negative 08/31/2024 6:08 PM CDT [facility] Blood BLOOD SPECIMEN / Unknown Venipuncture / Unknown 08/31/2024 5:45 PM CDT 08/31/2024 5:55 PM CDT Narrative [facility] - 08/31/2024 6:08 PM CDT Specimens containing human anti-mouse antibodies may exhibit false positive or false negative results. If qualitative interpretation is inconsistent with clinical evaluation, consider confirmation by an alternative hCG method. Lara Christie PA-C LAB - CHEMISTRY ORD ERABLES [facility] [address] [place] [address] * EGD (08/09/2022 11:31 AM CDT) Report Endoscopy POC _ Patient Name: Niyah Shay Procedure Date: 08/09/2022 11:31 AM Date of : 1980 Admit Type: Inpatient Age: 42 Gender: Female Attending MD: Joselito Tamez DO _ Procedure: Upper GI endoscopy Indications: Epigastric abdominal pain, Assessment following Angel-en-Y gastrojejunostomy Providers: Joselito Tamez DO (Doctor) Referring MD: Justin Antonio MD (Referring MD) Medicines: Monitored Anesthesia Care Complications: No immediate complications. _ Estimated Blood Loss: Estimated blood loss: none. Procedure: Pre-Anesthesia Assessment: - Prior to the procedure, a History and Physical was performed, and patient medications and allergies were reviewed. The patient's tolerance of previous anesthesia was also reviewed. The risks and benefits of the procedure and the sedation options and risks were discussed with the patient. All questions were answered, and informed consent was obtained. Prior Anticoagulants: The patient has taken no previous anticoagulant or antiplatelet agents. ASA Grade Assessment: II - A patient with mild systemic disease. After reviewing the risks and benefits, the patient was deemed in satisfactory condition to undergo the procedure. After obtaining informed consent, the endoscope was passed under direct vision. Throughout the procedure, the patient's blood pressure, pulse, and oxygen saturations were monitored continuously. The Endoscope was introduced through the and advanced to the gastric pouch. The upper GI endoscopy was accomplished without difficulty. The patient tolerated the procedure well. Findings: The examined esophagus was normal. The gastric pouch was non-dilated and measured about 5 cm in length. The gastrojejunostomy was dilated at 20 mm with concern for marginal ulcers posteriorly on jejunal side of anastomosis. Mildly dilated blind limb was noted. No abnormalities within the proximal angel limb. _ Impression: - Normal esophagus. 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 - Suspect small marginal ulceration - No obvious gastrogastric fistula noted - No specimens collected. Recommendation: - Discharge patient to home (ambulatory). - Resume previous diet today. - Continue present medications. - Return to Bariatric clinic as previously scheduled. Procedure Code(s): --- Professional --- 05125, Esophagogastroduoden oscopy, flexible, transoral; diagnostic, including collection of specimen(s) by brushing or washing, when performed (separate procedure) --- Technical --- 89628, Esophagogastroduoden oscopy, flexible, transoral; diagnostic, including collection of specimen(s) by brushing or washing, when performed (separate procedure) Diagnosis Code(s): --- Professional --- R10.13, Epigastric pain Z09, Encounter for follow-up examination after completed treatment for conditions other than malignant neoplasm Z98.0, Intestinal bypass and anastomosis status --- Technical --- R10.13, Epigastric pain Z09, Encounter for follow-up examination after completed treatment for conditions other than malignant neoplasm Z98.0, Intestinal bypass and anastomosis status CPT copyright 2019 [employer]. All rights reserved. The codes documented in this report are preliminary and upon purification operator helper review may be revised to meet current compliance requirements. _ Joselito Tamez DO 08/27/2022 1:44:24 PM This report has been signed electronically. Number of Addenda: 0 Note Initiated On: 08/09/2022 11:31 AM [facility] 08/09/2022 11:3 1 AM CDT Narrative Procedure Note Joselito Tamez DO - 08/09/2022 4:45 PM CDT EGD completed. A full PDF copy of the report with photos is in the results and/or mediatab for your review. Please refer to this for full details of theprocedure. Follow up with Dr. Clifton as scheduled. Joselito Tamez DO 08/27/2022 1:45 PM Joselito Tamez DO GI PROCEDURE ORDERA BLES [facility] [place] [address] * HIV-1 HIV-2 ANTIBODY + HIV P24 AG PANEL (08/08/2022 6:18 PM CDT) HIV1/2 Ab + P24 Ag Non Reactive Non Reactive 08/08/2022 7:15 PM CDT [facility] Blood BLOOD SPECIMEN / Unknown Venipuncture / Unknown 08/08/2022 6:18 PM CDT 08/08/2022 6:25 PM CDT Narrative [facility] - 08/08/2022 7:15 PM CDT No Laboratory evidence of HIV infection. Liana Hui MD LAB - CHEMISTRY TEODORA NORIEGA [facility] Organization Address City/State/ZIP Co de Phone Number [facility] [address] [place] [address] * URINALYSIS REFLEX TO MICROSCOPIC NO CULTURE (08/08/2022 6:18 PM CDT) Only the most recent of2 resultswithin the time period is included. Color UA Yellow Straw, Yellow 08/08/2022 6:32 PM CDT [facility] Clarity UA Clear Clear 08/08/2022 6:32 PM CDT [facility] Glucose UA Negative Negative 08/08/2022 6:32 PM CDT [facility] Bilirubin UA Negative Negative 08/08/2022 6:32 PM CDT [facility] Ketone UA Negative Negative 08/08/2022 6:32 PM CDT [facility] Specific [place] UA 1.027 1.005 - 1.030 08/08/2022 6:32 PM CDT [facility] Blood UA Negative Negative 08/08/2022 6:32 PM CDT [facility] pH UA 5.0 5.0 - 8.0 pH 08/08/2022 6:32 PM CDT [facility] Protein UA Negative Negative 08/08/2022 6:32 PM CDT [facility] Urobilinogen UA Negative Negative mg/dL 08/08/2022 6:32 PM CDT [facility] Nitrite UA Negative Negative 08/08/2022 6:32 PM CDT [facility] Leukocyte UA Negative Negative 08/08/2022 6:32 PM CDT [facility] Urine Microscopy Urine microscopy not indicated 08/08/2022 6:32 PM CDT [facility] Urine URINE SPECIMEN OBTAINED BY CLEAN CATCH PROCEDURE / Unknown Collection / Unknown 08/08/2022 6:18 PM CDT 08/08/2022 6:25 PM CDT Narrative [facility] - 08/08/2022 6:32 PM CDT Liana Hui MD LAB - URINALYSIS ORD ERABLES Performing Organization Address [facility] de Phone Number [facility] [address] [place] [address] * PT-INR (08/08/2022 6:18 PM CDT) PT 12.8 12.1 - 14.8 sec 08/08/2022 7:48 PM CDT [facility] INR 1.0 0.9 - 1.1 08/08/2022 7:48 PM CDT [facility] Blood BLOOD SPECIMEN / Unknown Venipuncture / Unknown 08/08/2022 6:18 PM CDT 08/08/2022 6:25 PM CDT Narrative [facility] - 08/08/2022 7:48 PM CDT Conventional Warfarin Anticoagulant Therapy: INR Reference Range: 2.0-3.0 Intensive Warfarin Anticoagulant Therapy: INR Reference Range: 2.5-3.5 Liana Hui MD LAB - COAGULATION OR DERABLES Performing Organization Address [facility] Co de Phone Number [facility] [address] [place] [address] * EGD (07/27/2021 12:16 PM CDT) Report Endoscopy POC _ Patient Name: Niyah Shay Procedure Date: 07/27/2021 12:16 PM Date of : 1980 Admit Type: Inpatient Age: 41 Gender: Female Attending MD: Cameron Clifton , _ Procedure: Upper GI endoscopy Indications: Epigastric abdominal pain Providers: Cameron Clifton (Doctor) Medicines: Monitored Anesthesia Care Complications: No immediate complications. _ Procedure: Pre-Anesthesia Assessment: - Prior to the procedure, a History and Physical was performed, and patient medications and allergies were reviewed. The patient's tolerance of previous anesthesia was also reviewed. The risks and benefits of the procedure and the sedation options and risks were discussed with the patient. All questions were answered, and informed consent was obtained. Prior Anticoagulants: The patient has taken no previous anticoagulant or antiplatelet agents. ASA Grade Assessment: III - A patient with severe systemic disease. After reviewing the risks and benefits, the patient was deemed in satisfactory condition to undergo the procedure. After obtaining informed consent, the endoscope was passed under direct vision. Throughout the procedure, the patient's blood pressure, pulse, and oxygen saturations were monitored continuously. The Endoscope was introduced through the mouth, and advanced to the proximal jejunum. The upper GI endoscopy was accomplished without difficulty. The patient tolerated the procedure well. Findings: The lower third of the esophagus was normal. The Z-line was regular and was found 40 cm from the incisors. Localized moderate inflammation characterized by erythema and friability was found in the gastric body. Biopsies were taken with a cold forceps for Helicobacter pylori testing using CLOtest. Estimated blood loss: none. Evidence of a gastric bypass was found. A gastric pouch with a normal size was found. The staple line appeared intact. The gastrojejunal anastomosis was characterized by erythema, friable mucosa and the presence of no stomal ulceration. This was traversed. The examined jejunum was normal. _ Impression: - Normal lower third of esophagus. - Z-line regular, 40 cm from the incisors. - Gastritis. Biopsied. - Gastric bypass with a normal-sized pouch and intact staple line. Gastrojejunal anastomosis characterized by erythema, friable mucosa and no stomal ulceration. - Normal examined jejunum. Recommendation: - Discharge patient to home. - Advance diet as tolerated today. - Continue present medications. - Await pathology results. Procedure Code(s): --- Professional --- 65559, Esophagogastroduo denoscopy, flexible, transoral; with biopsy, single or multiple --- Technical --- 11268, Esophagogastroduo denoscopy, flexible, transoral; with biopsy, single or multiple Diagnosis Code(s): --- Professional --- K29.70, Gastritis, unspecified, without bleeding Z98.84, Bariatric surgery status R10.13, Epigastric pain --- Technical --- K29.70, Gastritis, unspecified, without bleeding Z98.84, Bariatric surgery status R10.13, Epigastric pain CPT copyright 2019 [employer]. All rights reserved. The codes documented in this report are preliminary and upon purification operator helper review may be revised to meet current compliance requirements. Cameron Clifton _ Cameron Clifton, 07/27/2021 12:38:01 PM This report has been signed electronically. Number of Addenda: 0 Note Initiated On: 07/27/2021 12:16 PM Estimated Blood Loss: Estimated blood loss: none. [facility] 07/27/2021 12:1 6 PM CDT Narrative Procedure Note Cameron Clifton MD - 07/27/2021 12:38 PM CDT EGD completed. Normal gastric bypass, no ulcer, some gastritis, Biopsiespending. A full PDF copy of the report with photos is in the results and/or mediatab for your review. Please refer to this for full details of theprocedure. Ok to return to floor Ok for diet, advance as tolerated to regular Carate and PPI Ok for discharge from bariatric perspective Cameron Clifton MD Cameron Clifton MD [place] [address] * US ABDOMEN LIMITED (07/26/2021 3:40 PM CDT) Anatomical Region Laterality Modality Abdomen Ultrasound 07/26/2021 3:58 PM CDT Impressions 07/26/2021 3:59 PM CDT The gallbladder is not visualized. Right upper quadrant ultrasound is otherwise unremarkable. *Reading Radiologist: Sowmya Quach on 07/26/2021 at 3:59 PM Narrative 07/26/2021 3:59 PM CDT RIGHT UPPER QUADRANT ULTRASOUND INDICATION: Right upper quadrant abdominal pain TECHNIQUE: Grayscale images of the right upper quadrant were performed. FINDINGS: The gallbladder is not visualized and is reported surgically absent. The liver is normal in size and echotexture. The common bile duct measures 0.72cm. The visualized portions of the pancreas are unremarkable. The right kidney is of normal size, echogenicity and renal cortical thickness and measures 10.29 x 5.12 x 5.4 cm. Procedure Note Sowmya Quach MD - 07/26/2021 RIGHT UPPER QUADRANT ULTRASOUND INDICATION: Right upper quadrant abdominal pain TECHNIQUE: Grayscale images of the right upper quadrant were performed. FINDINGS: The gallbladder is not visualized and is reported surgically absent. The liver is normal in size and echotexture. The common bile duct measures 0.72cm. The visualized portions of the pancreas are unremarkable. The right kidney is of normal size, echogenicity and renal cortical thickness and measures 10.29 x 5.12 x 5.4 cm. IMPRESSION The gallbladder is not visualized. Right upper quadrant ultrasound is otherwise unremarkable. *Reading Radiologist: Sowmya Quach on 07/26/2021 at 3:59 PM Guillermo Fowler MD US ORDERABLES * INFLUENZA A+B+RSV PCR PANEL (07/26/2021 12:27 PM CDT) Influenza A PCR Not detected Not detected, Invalid 07/26/2021 4:13 PM CDT [facility] Influenza B PCR Not detected Not detected, Invalid 07/26/2021 4:13 PM CDT [facility] RSV PCR Not detected Not detected, Invalid 07/26/2021 4:13 PM CDT [facility] Microbiology SPECIMEN FROM NASOPHARYNGEAL STRUCTURE / Unknown Collection / Unknown 07/26/2021 12:27 PM CDT 07/26/2021 12:35 PM CDT Guillermo Fowler MD LAB - MICROBIOLOGY O RDERABLES [facility] [address] [place] [address], [facility] [phone] * XR CHEST 1VW PORTABLE (07/26/2021 8:22 AM CDT) Only the most recent of2 resultswithin the time period is included. Anatomical Region Laterality Modality Chest Radiographic Mira ging 07/26/2021 8:39 AM CDT Impressions 07/26/2021 8:40 AM CDT Better ventilated lungs, no active disease. Trace basilar linear atelectasis.. *Reading Radiologist: Buck Bush on 07/26/2021 at 8:40 AM Narrative 07/26/2021 8:40 AM CDT Portable Chest AP History: Nausea vomiting fever, under investigation for COVID. History of ruptured alters Comparison:September 09, 2020 Findings: Nonstandard portable exam. The heart size normal. Elevated left hemidiaphragm. No pneumothorax or pleural effusion. No paraspinal soft tissue swelling. The peripheral pulmonary vessels are normal. There may be a left lung bulla.. Procedure Note Buck Bush MD - 07/26/2021 Portable Chest AP History: Nausea vomiting fever, under investigation for COVID. History of ruptured alters Comparison:September 09, 2020 Findings: Nonstandard portable exam. The heart size normal. Elevated left hemidiaphragm. No pneumothorax or pleural effusion. No paraspinal soft tissue swelling. The peripheral pulmonary vessels are normal. There may be a left lung bulla.. IMPRESSION Better ventilated lungs, no active disease. Trace basilar linear atelectasis.. *Reading Radiologist: Buck Bush on 07/26/2021 at 8:40 AM Guillermo Fowler MD DIAGNOSTIC IMAGING O RDERABLES * SARS-COV-2 (COVID-19) INTERNAL (07/26/2021 2:15 AM CDT) COVID-19 PCR Not detected Not detected 07/26/2021 11:53 AM CDT [facility] Microbiology SPECIMEN FROM NASOPHARYNGEAL STRUCTURE / Unknown Collection / Unknown 07/26/2021 2:15 AM CDT 07/26/2021 2:33 AM CDT Narrative [facility] - 07/26/2021 11:53 AM CDT This nucleic acid amplification assay performance was validated by [facility]. This test has been authorized by the Food and Drug administration (FDA)under an Emergency Use Authorization (EUA). This test has been validated in accordance with the FDA's guidance document Policy for Diagnostic Testing in Laboratories Certified to perform High Complexity Testing under CLIA prior to Emergency Use Authorization for Coronavirus Disease-2019 during the Public Health Emergency issued on January 15, 2020. FDA independent review of this validation is pending. This test is only authorized for the duration of time the declaration that circumstances exist justifying the authorization of emergency use of in vitro diagnostic tests for detection of SARS-CoV-2 virus and/or diagnosis of COVID-19 infection under section 564(b)(1) of the Act, 21 U.S.C 360bbb-3 (b)(1), unless the authorization is terminated or revoked sooner. Fact Sheets for this EUA assay are available upon request. Neha Mendez MD LAB - MICROBIOLOGY O RDERABLES [facility] MICROBIOLOGY [address] [place] [address], [facility] [phone] * CULTURE BLOOD (07/25/2021 6:40 PM CDT) Only the most recent of2 resultswithin the time period is included. Culture No growth day 5 ABEBA 07/30/2021 9:30 PM CDT [facility] MICROBIOLOGY Blood PERIPHERAL BLOOD / Unknown Venipuncture / Unknown 07/25/2021 6:40 PM CDT 07/25/2021 6:49 PM CDT Yesica Marie MD LAB - MICROBIOLOGY O RDERABLES [facility] MICROBIOLOGY [address] [place] [address], [facility] [phone] * NICOTINE + METABOLITES URINE (07/25/2021 6:32 PM CDT) Nicotine Urine 596.5 ng/mL 08/01/2021 6:08 PM CDT [facility] ([facility]) Comment: This test was developed and its performance characteristics determined by [employer]. It has not been cleared or approved by the Food and Drug Administration. Nicotine levels greater than 100.0 are consistent with the use of tobacco or tobacco cessation products. Cotinine Urine 295.6 ng/mL 08/01/2021 6:08 PM CDT [facility] ([facility]) Comment: This test was developed and its performance characteristics determined by [facility]. It has not been cleared or approved by the Food and Drug Administration. Cotinine levels greater than 200.0 are consistent with the use of tobacco or tobacco cessation products. Urine URINE / Unknown Collection / Unknown 07/25/2021 6:32 PM CDT 07/25/2021 6:46 PM CDT Narrative [facility] ([facility]) - 08/01/2021 6:08 PM CDT Performed at: [address] [place] [address] [id number] Mason Liner: Michelle Houston MD, Phone: [phone] Coleen Yanez MAID SUPERVISOR-FISH STRAIGHTENER LAB - URIN E CHEMISTRY ORDERABLES [facility] ([facility]) [address] [place] [address] * ETT Placement (09/10/2020 1:54 AM CDT) Narrative Noe Solis MD - 09/10/2020 1:54 AM CDT Noe Solis MD 09/10/2020 7:42 PM Endotracheal Tube Placement: Procedure: intubation ([id number]). Staff Section Anesthesia Provider: Dharmesh Brito APRN-MARLENA, Performed the procedure Noe Solis MD GENERAL ANESTHESIA O RDERABLES * EKG 12-LEAD (09/10/2020 12:03 AM CDT) Only the most recent of2 resultswithin the time period is included. Ventricular Rate 83 BPM [facility] Atrial Rate 83 BPM [facility] P-R Interval 126 ms [facility] QRS Duration ms 74 ms [facility] Q-T Interval ms 384 ms [facility] QTC Calculation (Bezet) 451 ms [facility] Calculated P [place] 68 degrees [facility] Calculated R [place] 47 degrees [facility] Calculated T [place] 53 degrees [facility] Interpretation EKG Normal sinus rhythm with sinus arrhythmia Normal ECG No previous ECGs available Confirmed by MERCY DAHL, TYE ([id number]) on 09/11/2020 10:11:51 AM [facility] 09/10/2020 12:0 3 AM CDT 09/11/2020 10:11 AM CDT Herminio Onofre MD ECG ORDERABLES Performing Organization Address [facility] Co de Phone Number [facility] * TROPONIN I (09/09/2020 11:42 PM CDT) Only the most recent of3 resultswithin the time period is included. Troponin I <0.010 <0.038 ng/mL 09/10/2020 12:14 AM CDT [facility] Blood BLOOD SPECIMEN / Unknown Venipuncture / Unknown 09/09/2020 11:42 PM CDT 09/09/2020 11:47 PM CDT Herminio Onofre MD LAB - CHEMISTRY TEODORA NORIEGA [facility] [address] [place] [address] * TYPE + SCREEN PANEL (09/09/2020 11:42 PM CDT) ABO Rh A POS 09/10/2020 2:02 AM CDT [facility] Comment:No history; collect retype. Antibody Screen NEG 0 2:02 AM CDT [facility] Blood Bank BLOOD SPECIMEN / Unknown Venipuncture / Unknown 09/09/2020 11:42 PM CDT 09/09/2020 11:47 PM CDT Herminio Onofre MD LAB - BLOOD BANK ORD ELIECER Performing Organization Address [facility] Co de Phone Number [facility] [address] [place], [place] [address] [phone] * LACTIC ACID BLOOD (09/09/2020 11:42 PM CDT) Lactic Acid 1.90 0.5 - 2.2 mmol/L 09/10/2020 12:03 AM CDT [facility] Blood BLOOD SPECIMEN / Unknown Venipuncture / Unknown 09/09/2020 11:42 PM CDT 09/09/2020 11:46 PM CDT Herminio Onofre MD LAB - CHEMISTRY TEODORA NORIEGA Performing Organization Address [facility] Co de Phone Number [facility] [address] [place] [address] * CARDIAC EKG ORDER (12/26/2017 10:03 PM CLIENT RELATIONS ASSOCIATE) Narrative 12/26/2017 10:03 PM CLIENT RELATIONS ASSOCIATE Ordered by an unspecified provider. Scanned Document CARDIAC SERVICES ORD ERABLES * XR CHEST PA AND LATERAL (12/25/2017 11:20 PM CLIENT RELATIONS ASSOCIATE) Anatomical Region Laterality Modality Chest Radiographic Mira ging 12/26/2017 7:11 AM CLIENT RELATIONS ASSOCIATE Impressions 12/26/2017 7:11 AM CLIENT RELATIONS ASSOCIATE Clear lungs. Narrative 12/26/2017 7:11 AM CLIENT RELATIONS ASSOCIATE Chest x-ray 2 views. HISTORY: Chest pain. 2 views of the chest show normal heart size with normal vessels. Lungs are clear. Procedure Note Sravan Cisneros MD - 12/26/2017 Chest x-ray 2 views. HISTORY: Chest pain. 2 views of the chest show normal heart size with normal vessels. Lungs are clear. IMPRESSION Clear lungs. Shelia Acuna MD [facility] Teams Level Vial Grinder Relationship Specialty Start Date End Date Justin Antonio MD [address] [place] [address] PCP - General 10/15/18
== END 2024-12-28 12:49 | disposition home or self-care (01) ==
PROVIDERS: PCP Pediatrics; Visit Provider Obstetrics & Gynecology Gynecology
DX: D25.9 Leiomyoma of uterus, unspecified (principal); R19.09 Other intra-abdominal and pelvic swelling, mass and lump
CPT/HCPCS: 76830; 76856

== ENCOUNTER 2025-03-18 12:19 | Emergency (ER) | payer OTHER, SELFPAY ==
--- NOTE | ~2025-03-18 | CT_ITS ---
EXAMINATION: CT soft tissue neck w con DATE: 03/18/2025 15:32 INDICATION: Difficulty swallowing and constriction TECHNIQUE: Computed tomography (CT) of the neck was performed with 100 mL Omnipaque-350 intravenous c ontrast, 65 mL which was administered immediately prior during the CT of the chest, abdomen and pelvi s. Automated exposure control and iterative reconstruction technique were employed. The dose-length p roduct was 492.95 mGy-cm. COMPARISON: None FINDINGS: Orbits are normal. The paranasal sinuses are clear. Visualized sinuses and mastoid aircells are well aerated. Submandibular and parotid glands are symmetric. Thyroid gland is unremarkable. There are sca ttered normal-sized lymph nodes in the neck, no lymphadenopathy. No masses identified. The vasculatu re is patent and normal in caliber. Airway is unremarkable. Normal epiglottis and parapharyngeal soft tissues. Mild dependent atelectasis in the bilateral upper and lower lobes with additional discoid a telectasis in the superior segment of the left lower lobe. Mild cervical spondylosis. IMPRESSION: 1. Unremarkable CT of the neck Reviewed, dictated and finalized at location A.
--- NOTE | ~2025-03-18 | CT_ITS ---
EXAMINATION: CTA chest PE abdomen pel DATE: 03/18/2025 15:32 INDICATION: Chest pain and shortness of breath TECHNIQUE: Computed tomography (CT) pulmonary angiogram of the chest was performed with 100 mL Omnipa que-350 intravenous contrast. Additional 3D reconstructions utilizing coronal maximum intensity proje ction (MIP) were performed. CT of the abdomen and pelvis was performed with intravenous contrast util izing the same contrast bolus following a short delay. Automated exposure control and iterative recon struction technique were employed. The dose-length product was 1706.20 mGy-cm. COMPARISON: 09/04/2024 FINDINGS: Chest: No pulmonary embolism. Again seen are small lung volumes particularly on the left where there is even tration and elevation of left hemidiaphragm. There is associated dependent and basilar predominant at electasis in both lungs. No pneumonia, pulmonary edema, pleural effusion or pneumothorax. Heart size is normal. No pericardial effusion. Thoracic aorta is normal in caliber with no dissection. No pathol ogically enlarged thoracic lymphadenopathy. Mild lower thoracic levoscoliosis with moderate spondylos is. There is chronic appearing mild anterior wedging of a few lower thoracic vertebral bodies. Abdomen/pelvis: Postoperative change of prior Francesca-en-Y gastric bypass procedure with jejunojejunal anastomosis in th e right lower quadrant. Unchanged mild intra and extra hepatic biliary ductal dilation likely related to prior cholecystectomy with surgical clips at the gallbladder fossa. No abnormal bowel wall thicke mari[place] or obstruction. Normal appendix. Again seen is some peripheral calcification at a small centrall y low density nodule in the right hemipelvis posterior to the ovary most suggestive of heterotopic os sification related to fat necrosis. No free intraperitoneal gas or fluid. No pathologically enlarged abdominal or pelvic lymphadenopathy. Bladder, uterus and bilateral adnexa are unremarkable. Mild lumb ar spondylosis. IMPRESSION: 1. No pulmonary embolism. 2. Mild dependent bibasilar atelectasis in both lungs with chronic eventration and elevation of left hemidiaphragm. 3. No acute intra-abdominal/pelvic process. Reviewed, dictated and finalized at location A.
[2025-03-18 12:39] VITALS: BP 125/80; PULSE 99; RESP 16; TEMP 36.8; O2SAT 100
[2025-03-18 13:45] LABS: BEDSIDEPREGUCG Negative (Negative)
[2025-03-18 13:52] LABS: Basophils Absolute Auto 0.1 K/mm3 (0.0-0.1); Basophils Percent Auto 0.7 % (0.2-1.2); Eosinophils Absolute Auto 0.1 K/mm3 (0-0.3); Eosinophils Percent Auto 1.2 % (0-4.4); Hematocrit 47.3 % (37.0-47.0); Hemoglobin 15.3 g/dL (12.0-15.0); Immature Granulocyte Absolute 0.02 K/mm3 (0.00-0.031); Immature Granulocyte Percent A 0.2 % (0-0.5); Lymphocytes Absolute Auto 4.19 K/mm3 (0.9-3.2); Lymphocytes Percent Auto 42.5 % (18.3-44.2); Mean Corpuscular HGB Conc 32.3 g/dl (32-36); Mean Corpuscular Hemoglobin 30.9 pg (26-34); Mean Corpuscular Volume 95.6 fl (80-100); Mean Platelet Volume 9.9 fl (7.4-10.4); Monocytes Absolute Auto 0.5 K/mm3 (0.1-0.6); Neutrophils Percent Auto 50.4 % (45.5-73.1); Platelet Count Result 340 k/mm3 (150-375); Red Blood Count 4.95 M/mm3 (4.2-5.4); Red Cell Distribution Width 12.1 % (11.5-14.5); White Blood Count 9.9 K/mm3 (4.5-10.0)
[2025-03-18 13:58] LABS: Add Urine Microscopic? YES; Appearance Urine Clear (Clear); Bacteria Urine None Seen /hpf; Bilirubin Urine Negative (Negative); Blood Urine Negative (Negative); Color Urine Yellow (Yellow); Glucose Urine UA Negative (Negative); Ketones Urine Negative (Negative); Leukocyte Esterase Ur Trace LEU/UL (Negative); Nitrate Urine Negative (Negative); Non Pathogenic Casts 0-2; Protein Urine Negative (Negative); RBC Urine 0-2 /hpf (0-2); Specific Grav Ur 1.017 (1.001-1.035); Squamous Epithelial Cell Urine None Seen /hpf (Few); Urobilinogen Urine 0.2 mg/dL (<2.0); WBC Urine 0-5 /hpf (0-3)
--- NOTE | 2025-03-18 13:59 | ED.ABDPAIN ---
HPI - Abdominal Pain General Chief Complaint: Abdominal Pain Stated Complaint: Abd pain-unable to eat-weight loss Time Seen by Provider: 03/18/25 13:47 History of Present Illness HPI narrative: Patient is a 44-year-old female who presents to the ER with difficulty swallowing, left chest pain, shortness of breath, dehydration, throat construction, and intermittent diarrhea. She reports she had gastric bypass surgery approximately 12 years ago. Patient reports she has had multiple surgeries on her GI tract since that time. She reports she went to her primary care provider today because of abdominal pain. It was discovered that she has lost 14 lbs in 3 weeks patient's primary care provider is concerned she is dehydrated. Patient also reports she has had difficulty swallowing and an intermittent constricted throat for the past 5 months. She denies any back pain, recent fevers, recent vomiting, or sore throat. Related Data Home Medications ?Medication ?Instructions ?Recorded ?Confirmed ?Last Taken ?Type acetaminophen 325 mg capsule 650 mg PO Q4-6H PRN Pain 09/06/21 10/03/23 Unknown History (Tylenol) medroxyprogesterone 150 mg/mL 150 mg IM [id number] 09/06/21 10/03/23 Unknown History intramuscular syringe omeprazole 20 mg capsule,delayed 20 mg PO DAILY 09/06/21 10/03/23 Unknown History release bupropion HCl 200 mg tablet,12 hr 200 mg PO BID 09/26/23 10/03/23 Unknown History sustained-release clonazepam 2 mg tablet 2 mg PO BID 09/26/23 10/03/23 Unknown History cyanocobalamin (vitamin B-12) 1,000 mcg IM Q1M MONTHLY 09/26/23 10/03/23 Unknown History 1,000 mcg/mL injection solution ergocalciferol (vitamin D2) 1,250 50,000 unit PO WEEKLY 09/26/23 10/03/23 Unknown History mcg (50,000 unit) capsule ferrous sulfate 325 mg (65 mg 325 mg PO BID 09/26/23 10/03/23 Unknown History iron) tablet gabapentin 600 mg tablet 600 mg PO TID 09/26/23 10/03/23 Unknown History ondansetron 4 mg disintegrating 4 mg PO Q4-6H PRN Nausea And 09/26/23 10/03/23 Unknown History tablet Vomiting rizatriptan 10 mg disintegrating 10 mg PO DAILY PRN Headache 09/26/23 10/03/23 Unknown History tablet tizanidine 4 mg tablet 4 mg PO TID PRN FIBROMYALGIA 09/26/23 10/03/23 Unknown History trazodone 50 mg tablet 50 - 150 mg PO HS PRN Insomnia 09/26/23 10/03/23 Unknown History zolpidem 10 mg tablet 10 mg PO HS 09/26/23 10/03/23 Unknown History Allergies Allergy/AdvReac Type Severity Reaction Status Date / Time Penicillins Allergy Severe Swelling Verified 03/18/25 12:20 of Lip/Tongue/Throat Sulfa (Sulfonamide Allergy Intermediate Hives Verified 03/18/25 12:20 Antibiotics) ciprofloxacin Allergy Mild Hives Verified 03/18/25 12:20 red (food color) AdvReac Intermediate Nausea and Verified 03/18/25 12:20 Vomiting Review of Systems Review of Systems: All systems reviewed & are unremarkable except as noted in HPI and below PMFSH Past Medical History Medical History Perforated ulcer stomach 2019 Fibromyalgia Fibroids Anxiety Depression Surgical History Surgical History S/P myomectomy Abdominal 2013 Hx laparoscopic cholecystectomy History of gastric bypass Social History Social History Smoking packs per day: 0.5 Smoking cigarettes per day: 10.0 Years smoked: 6 Smoking pack-years: 3.00 Smoking status: Current every day smoker Tobacco type: cigarettes and e-cigarettes/vaping Second hand tobacco smoke exposure: No Additional smoking assessment comments: STARTED VAPING IN 2019 Alcohol intake: never Drinks per week: 2 Alcohol use details: beer or wine; occassionally Substance use: former Substance use type: does not use Living arrangements: with family Additional living arrangements comments: significant other Gender identity (if verbalized by the patient): Female Spiritual care concerns: No Exam Narrative: GENERAL: Well appearing, well-nourished, non-toxic, in no acute distress. HEAD: Normocephalic, atraumatic. NECK: Supple. No adenopathy, no masses. RESPIRATORY: Airway patent, respirations nonlabored. Clear to auscultation bilaterally, no rales, rhonchi, wheezing. CARDIOVASCULAR: Regular rate and rhythm without murmurs, rubs, or gallops. Peripheral pulses 2+ and equal bilaterally. ABDOMINAL: Soft, nontender, nondistended, no hepatosplenomegaly. Normoactive BS. MUSCULOSKELETAL: Moves all extremities. Strength/ROM intact without gross deformities. SKIN: Warm, dry, normal color. No rashes. NEURO: A&O X3. Speech clear. Cranial nerves II-XII intact. No ataxic movements. PSYCHIATRIC: Appropriate mood and affect. Normal interaction. Course Vital Signs Vital signs: Vital Signs Temperature 36.8 C 03/18/25 12:39 Pulse Rate 99 03/18/25 12:39 Respiratory Rate 16 03/18/25 12:39 Blood Pressure 125/80 03/18/25 12:39 Pulse Oximetry 100 03/18/25 12:39 Temperature 36.8 C 03/18/25 12:39 Pulse Rate 88 03/18/25 16:23 Respiratory Rate 16 03/18/25 16:23 Blood Pressure 105/72 03/18/25 16:23 Pulse Oximetry 98 03/18/25 16:23 MDM - Abdominal Pain MDM Narrative Medical decision making narrative: Patient is a 44-year-old female who presents to the ER with difficulty swallowing, left chest pain, shortness of breath, dehydration, throat construction, and intermittent diarrhea. She reports she had gastric bypass surgery approximately 12 years ago. Patient reports she has had multiple surgeries on her GI tract since that time. She reports she went to her primary care provider today because of abdominal pain. It was discovered that she has lost 14 lbs in 3 weeks patient's primary care provider is concerned she is dehydrated. Patient also reports she has had difficulty swallowing and an intermittent constricted throat for the past 5 months. She denies any back pain, recent fevers, recent vomiting, or sore throat. Labs Ordered: CBC, CMP, PTT, INR, troponin, proBNP, lipase, UDS, urinalysis Imaging Ordered: CT soft tissue neck, CTA chest PE abdomen pelvis Medications Ordered: 1 L normal saline IV bolus, Dilaudid 0.5 mg IV, Zofran 4 mg IV Results: Patient's CBC indicates a hemoglobin of 15.3, hematocrit 47.3%. Her CMP indicates a sodium of 135, BUN of 6. Patient's urinalysis indicates trace leukocytes. Diagnosis: Pt's CT chest/abdomen/pelvis scan indicates Chest: No pulmonary embolism. Again seen are small lung volumes particularly on the left where there is eventration and elevation of left hemidiaphragm. There is associated dependent and basilar predominant atelectasis in both lungs. No pneumonia, pulmonary edema, pleural effusion or pneumothorax. Heart size is normal. No pericardial effusion. Thoracic aorta is normal in caliber with no dissection. No pathologically enlarged thoracic lymphadenopathy. Mild lower thoracic levoscoliosis with moderate spondylosis. There is chronic appearing mild anterior wedging of a few lower thoracic vertebral bodies. Abdomen/pelvis: Postoperative change of prior Francesca-en-Y gastric bypass procedure with jejunojejunal anastomosis in the right lower quadrant. Unchanged mild intra and extra hepatic biliary ductal dilation likely related to prior cholecystectomy with surgical clips at the gallbladder fossa. No abnormal bowel wall thickening or obstruction. Normal appendix. Again seen is some peripheral calcification at a small centrally low density nodule in the right hemipelvis posterior to the ovary most suggestive of heterotopic ossification related to fat necrosis. No free intraperitoneal gas or fluid. No pathologically enlarged abdominal or pelvic lymphadenopathy. Bladder, uterus and bilateral adnexa are unremarkable. Mild lumbar spondylosis. Pt's soft tissue neck CT scan indicates Orbits are normal. The paranasal sinuses are clear. Visualized sinuses and mastoid air cells are well aerated. Submandibular and parotid glands are symmetric. Thyroid gland is unremarkable. There are scattered normal-sized lymph nodes in the neck, no lymphadenopathy. No masses identified. The vasculature is patent and normal in caliber. Airway is unremarkable. Normal epiglottis and parapharyngeal soft tissues. Mild dependent atelectasis in the bilateral upper and lower lobes with additional discoid atelectasis in the superior segment of the left lower lobe. Mild cervical spondylosis. Patient Education/Shared MDM: Results of lab work shared with patient. She endorses improvement following medication administration, but is requesting one more dose of IV pain medication prior to discharge. Patient strongly advised to maintain hydration status upon discharge and follow-up with her PCP as soon as possible. She would also like a referral for a new defensive fire control systems operator, which will provided for her today. She will be discharged home with a prescription for Simethicone. Strict return precautions provided. Patient verbalized understanding and is in agreement with plan. Vital signs stable at time of discharge. All questions answered. Differential Diagnosis Differential diagnosis: Likely abdominal pain, acute appendicitis, constipation, diverticulitis, gastroenteritis and small bowel obstruction Lab Data Attestation: I reviewed the patient's lab results. 03/18/25 13:41 03/18/25 14:47 Labs: Lab Results 03/18/25 03/18/25 03/18/25 Range/Units 13:41 13:44 14:47 WBC 9.9 (4.5-10.0) K/mm3 RBC 4.95 (4.2-5.4) M/mm3 Hgb 15.3 H (12.0-15.0) g/dL Hct 47.3 H (37.0-47.0) % MCV 95.6 (80-100) fl MCH 30.9 (26-34) pg MCHC 32.3 (32-36) g/dl RDW 12.1 (11.5-14.5) % Plt Count 340 (150-375) k/mm3 MPV 9.9 (7.4-10.4) fl Immature Gran % (Auto) 0.2 (0-0.5) % Neut % (Auto) 50.4 (45.5-73.1) % Lymph % (Auto) 42.5 (18.3-44.2) % Franklin % (Auto) 5.0 (2.6-8.5) % Eos % (Auto) 1.2 (0-4.4) % Baso % (Auto) 0.7 (0.2-1.2) % Lymph # (Auto) 4.19 H (0.9-3.2) K/mm3 Franklin # (Auto) 0.5 (0.1-0.6) K/mm3 Eos # (Auto) 0.1 (0-0.3) K/mm3 Baso # (Auto) 0.1 (0.0-0.1) K/mm3 Abs Immat Gran (auto) 0.02 (0.00-0.031) K/mm3 Absolute Neuts (auto) 5.0 (1.3-6.7) K/mm3 Absolute Nucleated RBC 0.000 (0.0-0.012) K/mm3 Nucleated RBC % 0.0 (0.0-0.2) % PT 14.0 (11.1-14.7) Seconds INR 1.1 APTT 26.9 (22.3-36.8) Seconds Sodium 135 L (137-145) mmol/L Potassium 3.5 (3.4-5.0) mmol/L Chloride 99 (98-107) mmol/L Carbon Dioxide 24 (22-30) mmol/L Anion Gap 12 (4-12) mmol/L BUN 6 L (7-17) mg/dL Creatinine 0.90 (0.7-1.0) mg/dL Estim Creat Clear Calc 73 ml/min Estimated GFR > 60 (59 - ) Glucose 82 (65-110) mg/dL Calcium 9.6 (8.4-10.2) mg/dL Total Bilirubin 0.6 (0.2-1.3) mg/dL AST 27 (14-36) U/L ALT 24 (6-35) U/L Alkaline Phosphatase 76 (38-126) U/L Troponin I < 0.012 (0.000-0.034) ng/mL NT-Pro-B Natriuret Pep < 20 (19.9-100) pg/mL Total Protein 8.0 (6.3-8.2) g/dL Albumin 4.8 (3.5-5.1) g/dL Lipase 74 (23-300) U/L Urine Color Yellow (Yellow) Urine Appearance Clear (Clear) Urine pH 5.0 (5.0-9.0) Ur Specific Deane 1.017 (1.001-1.035) Urine Protein Negative (Negative) mg/dL Urine Glucose (UA) Negative (Negative) mg/dL Urine Ketones Negative (Negative) mg/dL Ur Blood (Man) Negative (Negative) Urine Nitrate Negative (Negative) Urine Bilirubin Negative (Negative) Urine Urobilinogen 0.2 (<2.0) mg/dL Leukocyte Esterase Rfl Trace H (Negative) GUNNER/UL Urine RBC 0-2 (0-2) /hpf Urine WBC 0-5 (0-3) /hpf Ur Squamous Epith Cells None seen (Few) /hpf Urine Bacteria None seen /hpf Urine Casts 0-2 POC Urine HCG, Qual Negative (Negative) Urine Opiates Screen Pending Urine Methadone Screen Pending Ur Barbiturates Screen Pending Ur Phencyclidine Scrn Pending Ur Amphetamine Screen Pending U Benzodiazepines Scrn Pending Urine Cocaine Screen Pending U Cannabinoids Screen Pending Imaging Data Attestation: I personally reviewed and interpreted this imaging study as follows: Radiologist's impression: ITS Impressions Chest/Abdomen/Pelvis CTA 03/18/25 15:35 IMPRESSION: 1. No pulmonary embolism. 2. Mild dependent bibasilar atelectasis in both lungs with chronic eventration and elevation of left hemidiaphragm. 3. No acute intra-abdominal/pelvic process. Soft Tissue Neck CT 03/18/25 15:45 IMPRESSION: 1. Unremarkable CT of the neck Discharge Plan Discharge Clinical Impression: Epigastric abdominal pain, History of gastric bypass, Swallowing difficulty Patient Disposition: Home Condition: Stable Instructions: Antibiotic Form, Abdominal Pain (ED) Additional Instructions: Please return to the ER with any worsening symptoms. Follow-up with primary care provider as soon as possible. Please try to establish care with a new defensive fire control systems operator or see your current defensive fire control systems operator as soon as possible. Take all medications as prescribed, including regularly scheduled medications. Patient Language: Anguillan Prescriptions: New Bicarsim Forte 125 mg tablet 125 mg PO DAILY PRN (Reason: abdominal distention) Qty: 14 0RF No Action gabapentin 600 mg tablet 600 mg PO TID trazodone 50 mg tablet 50 - 150 mg PO HS PRN (Reason: Insomnia) tizanidine 4 mg tablet 4 mg PO TID PRN (Reason: FIBROMYALGIA) rizatriptan 10 mg tablet,disintegrating 10 mg PO DAILY PRN (Reason: Headache) cyanocobalamin (vitamin B-12) 1,000 mcg/mL solution 1,000 mcg IM Q1M ferrous sulfate 325 mg (65 mg iron) tablet 325 mg PO BID clonazepam 2 mg tablet 2 mg PO BID ergocalciferol (vitamin D2) 1,250 mcg (50,000 unit) capsule 50,000 unit PO WEEKLY zolpidem 10 mg tablet 10 mg PO HS ondansetron 4 mg tablet,disintegrating 4 mg PO Q4-6H PRN (Reason: Nausea And Vomiting) bupropion HCl 200 mg tablet sustained-release 12 hr 200 mg PO BID hydrocodone-acetaminophen 5-325 mg tablet 1 tablet PO Q12H PRN (Reason: pain) Qty: 14 0RF ondansetron 4 mg tablet,disintegrating 4 mg PO Q8H PRN (Reason: nausea and vomiting) Qty: 14 0RF omeprazole 20 mg capsule,delayed release(DR/EC) 20 mg PO DAILY medroxyprogesterone 150 mg/mL syringe 150 mg IM [id number] acetaminophen [Tylenol] 325 mg Capsule 650 mg PO Q4-6H PRN (Reason: Pain) Follow-up/Referrals: [facility] [Provider Group] (gastroenterology) David Luna MD [Physician] - (gastroenterology) Randy Antonio MD [Primary Care Provider] - Stand Alone Forms: Work/School Release IP Time of Disposition: 16:53
--- NOTE | 2025-03-18 14:49 | ECG_ITS ---
Test Date: 2025-03-18 15:07:19 Measurements Intervals Paden Rate: 91 P: 40 [place]: 124 QRS: 62 QRSD: 85 T: -3 QT: 318 QTc: 393 Interpretive Statements SINUS RHYTHM ST DEVIATION AND MODERATE T-WAVE ABNORMALITY, CONSIDER LATERAL ISCHEMIA [-0.1+ mV T WAVE IN I/aVL/V5/V6] Compared to ECG 08/25/2024 21:06:02 Possible ischemia now present Short [place] interval no longer present T-wave abnormality still present Electronically Signed On 03-18-2025 19:15:38 CDT by Ludin Parks
[2025-03-18] MEDS: ONDANSETRON INJ 4 MG/2 ML VIAL IV PUSH (15:02)
[2025-03-18] MEDS: HYDROmorphone HCL INJ (*CRX) 2 MG/ML VIAL 0.5 MG IV PUSH ×2 (15:02→16:53)
[2025-03-18 15:06] LABS: Alanine Aminotransferase 24 U/L (6-35); Albumin Level 4.8 g/dL (3.5-5.1); Alkaline Phosphatase 76 U/L (38-126); Anion Gap 12 mmol/L (4-12); Aspartate Amino Transferase 27 U/L (14-36); Bilirubin,Total 0.6 mg/dL (0.2-1.3); Blood Urea Nitrogen 6 mg/dL (7-17); Calcium 9.6 mg/dL (8.4-10.2); Carbon Dioxide 24 mmol/L (22-30); Chloride 99 mmol/L (98-107); Estimated CRCL calculation 73 ml/min; Estimated Glomerular Filt Rate > 60; Glucose 82 mg/dL (65-110); Lipase 74 U/L (23-300); Potassium 3.5 mmol/L (3.4-5.0); Sodium 135 mmol/L (137-145)
[2025-03-18 16:15] LABS: INR 1.1; Partial Thromboplastin Time 26.9 Seconds (22.3-36.8)
[2025-03-18 16:17] LABS: NT Pro B Type Natriuretic Pept < 20 pg/mL (19.9-100); Troponin I < 0.012 ng/mL (0.000-0.034)
[2025-03-18 16:23] VITALS: BP 105/72; PULSE 88; RESP 16; O2SAT 98
[2025-03-18 16:57] LABS: Barbiturate Screen Urine Negative (Negative); Benzodiazepines Screen Urine Positive (Negative)
[2025-03-18 16:58] LABS: Amphetamine Screen Urine Negative (Negative); Cannabinoid Screen Urine Negative (Negative); Cocaine Screen Urine Negative (Negative); Methadone Screen Urine Negative (Negative); Opiate Screen Urine Negative (Negative); Phencyclidine Screen Urine Negative (Negative)
--- OUTSIDE RECORDS SUMMARY | 2025-03-19 13:06 | XMS_ITS | Clinical Summary ---
Author Organization [facility] Address [facility] [place] [address] Care Team Providers Care [employer] Name Role Phone Randy Antonio MD Primary Care Provider [phone] Allergies Active Allergy Reactions Criticality Noted Date [...] Problem Noted Date Diagnosed Date Intentional overdose ([facility]) 3 Drug overdose, intentional, initial encounter ([facility]) 05/13/2023 Encounters Date Type Department Care Team Description 12/20/2024 3:02 PM BRANCH EMPLOYMENT COORDINATOR - 12/20/2024 4:40 PM BRANCH EMPLOYMENT COORDINATOR Emergency [facility] [address] [place] [address] [place] [address] Randy Foreman MD Abdominal Pain Discharge Disposition: Home or Self Care (Routine Discharge) 12/20/2024 Travel from Last 3 Months Immunizations Immunization Administration Dates Next Due PFIZER COVID-19 (ORIGINAL [...] place to sleep or slept in a fdc (including now)? Patient refused 05/17/2023 Comments No Sex and Gender Information Value Date Recorded Sex Assigned at Female 12/20/2024 3:05 PM BRANCH EMPLOYMENT COORDINATOR Legal Sex Female 6:15 PM CDT Gender Identity Not on file Sexual Orientation Not on file Last Filed Vital Signs Vital Sign Reading Time Taken Comments Blood Pressure 118/94 12/20/2024 3:03 PM BRANCH EMPLOYMENT COORDINATOR Pulse 118 12/20/2024 3:03 PM BRANCH EMPLOYMENT COORDINATOR Temperature 36 C (96.8 F) 12/20/2024 3:03 PM BRANCH EMPLOYMENT COORDINATOR Respiratory Rate 18 12/20/2024 3:03 PM BRANCH EMPLOYMENT COORDINATOR Oxygen Saturation 98% 12/20/2024 3:03 PM BRANCH EMPLOYMENT COORDINATOR Inhaled Oxygen Concentration - - Weight 86.2 kg (190 lb) 12/20/2024 3:03 PM BRANCH EMPLOYMENT COORDINATOR Height 167.6 cm (5' 6 ) 12/20/2024 3:03 PM BRANCH EMPLOYMENT COORDINATOR Body Mass Index 30.67 12/20/2024 3:03 PM BRANCH EMPLOYMENT COORDINATOR Plan of Treatment Health Maintenance Due Date Last Done Comments Cervical Cancer Screening Pa p Smear (Age 30 to 64) Every 3 Years 1981 Annual Physical 1984 Hepatitis C 1999 Hepatitis B Vaccines (1 of 3 - 19+ 3-dose series) 2000 Pneumococcal Vaccine: Pediatrics (0 to 5 Years) and At-Risk Patients (6 to 49 Years) (1 of 2 - PCV) 2000 Cervical Cancer Screening Pa p with HPV Testing (Age 30 to 64) Every 5 Years 2011 Cervical Cancer Screening wi th HPV 2011 Mammogram Screening 2021 COVID-19 Vaccine ( - 2023-2 5 season) 2024 04/03/2021, 03/12/2021 DTaP, Tdap and Td Vaccines ( 2 [...] in care transitions and discharge planning Lifestyle 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 Procedure Name Priority Date/Time Associated Diagnosis Comments CT ABD+PEL WO CON STAT 12/20/2024 3:3 5 PM BRANCH EMPLOYMENT COORDINATOR URINALYSIS AUTO DIP STAT 12/20/2024 3 :18 PM BRANCH EMPLOYMENT COORDINATOR CHORIONIC GONADOTROPIN HCG QL STAT 12/20/2024 3:18 PM BRANCH EMPLOYMENT COORDINATOR MAGNESIUM STAT 12/20/2024 3:18 PM BRANCH EMPLOYMENT COORDINATOR LIPASE STAT 12/20/2024 3:18 PM BRANCH EMPLOYMENT COORDINATOR COMPREHENSIVE METABOLIC PANEL STAT 12/20/2024 3:18 PM BRANCH EMPLOYMENT COORDINATOR CBC W/DIFF AUTOMATED STAT 12/20/2024 3:18 PM BRANCH EMPLOYMENT COORDINATOR from Last 3 Months Results * CT ABD+PEL WO CON (12/20/2024 3:35 PM BRANCH EMPLOYMENT COORDINATOR) Anatomical Region Laterality Modality Abdomen Computed Tomogra phy 12/20/2024 3:40 PM BRANCH EMPLOYMENT COORDINATOR Impressions 12/20/2024 3:42 PM BRANCH EMPLOYMENT COORDINATOR IMPRESSION: 1. No acute findings Ordered By: RANDY FOREMAN Interpreted By: Luis E Sweeney MD, 12/20/2024 3:40 PM Narrative 12/20/2024 3:42 PM BRANCH EMPLOYMENT COORDINATOR [address] [place] [address] CT ABDOMEN AND PELVIS WITHOUT CONTRAST Clinical [...] Note Luis E Sweeney MD - 12/20/[address] [place] [address] CT ABDOMEN AND PELVIS WITHOUT CONTRAST Clinical [...] (ABNORMAL) URINALYSIS AUTO DIP (12/20/2024 3:18 PM BRANCH EMPLOYMENT COORDINATOR) COLOR (U) YELLOW YELLOW 12/20/2024 3:59 PM BRANCH EMPLOYMENT COORDINATOR [facility] TRANSPARENCY CLEAR CLEAR 12/20/2024 3:59 PM BRANCH EMPLOYMENT COORDINATOR [facility] SPECIFIC GRAVITY (U) 1.010 1.010 - 1.025 12/20/2024 3:59 PM BRANCH EMPLOYMENT COORDINATOR [facility] U PH 6.0 5.0 - 8.5 12/20/2024 3:59 PM BRANCH EMPLOYMENT COORDINATOR [facility] LEUKOCYTES (U) NEGATIVE NEGATIVE 12/20/2024 3:59 PM BRANCH EMPLOYMENT COORDINATOR [facility] NITRITES NEGATIVE NEGATIVE 12/20/2024 3:59 PM BRANCH EMPLOYMENT COORDINATOR [facility] PROTEIN RANDOM (U) NEGATIVE NEGATIVE 12/20/2024 3:59 PM BRANCH EMPLOYMENT COORDINATOR [facility] GLUCOSE (U) NEGATIVE NEGATIVE 12/20/2024 3:59 PM BRANCH EMPLOYMENT COORDINATOR [facility] KETONES MG/DL (U) NEGATIVE NEGATIVE 12/20/2024 3:59 PM BRANCH EMPLOYMENT COORDINATOR [facility] UROBILINOGEN 0.2 0.2 - 1.0 EU/DL 12/20/2024 3:59 PM BRANCH EMPLOYMENT COORDINATOR [facility] BILIRUBIN (U) 1+(A) NEGATIVE 12/20/2024 3:59 PM BRANCH EMPLOYMENT COORDINATOR [facility] BLOOD (U) TRACE(A) NEGATIVE 12/20/2024 3:59 PM BRANCH EMPLOYMENT COORDINATOR [facility] URINE SPECIMEN OBTAINED BY CLEAN CATCH PROCEDURE / Unknown 12/20/2024 3:18 PM BRANCH EMPLOYMENT COORDINATOR us Randy Foreman MD URINE ORDERABLES Final R esult [facility] [address] [place] [address], * (ABNORMAL) COMPREHENSIVE METABOLIC PANEL (12/20/2024 3:18 PM BRANCH EMPLOYMENT COORDINATOR) GLUCOSE 94 70 - 99 MG/DL 12/20/2024 3:56 PM BRANCH EMPLOYMENT COORDINATOR [facility] BUN 5(L) 7 - 18 MG/DL 12/20/2024 3:56 PM BRANCH EMPLOYMENT COORDINATOR [facility] CREATININE S/P/B 0.94 0.50 - 1.20 MG/DL 12/20/2024 3:56 PM BRANCH EMPLOYMENT COORDINATOR [facility] SODIUM S/P/B 142 136 - 145 MMOL/L 12/20/2024 3:56 PM BRANCH EMPLOYMENT COORDINATOR [facility] POTASSIUM S/P/B 3.3(L) 3.5 - 5.1 MMOL/L 12/20/2024 3:56 PM BRANCH EMPLOYMENT COORDINATOR [facility] CHLORIDE S/P/B 105 100 - 108 MMOL/L 12/20/2024 3:56 PM BRANCH EMPLOYMENT COORDINATOR [facility] CO2 23.9 21.0 - 32.0 MMOL/L 12/20/2024 3:56 PM BRANCH EMPLOYMENT COORDINATOR [facility] CALCIUM S/P/B 8.9 8.5 - 10.1 MG/DL 12/20/2024 3:56 PM BRANCH EMPLOYMENT COORDINATOR [facility] BILIRUBIN TOTAL S/P/B 0.5 0.2 - 1.2 MG/DL 12/20/2024 3:56 PM BRANCH EMPLOYMENT COORDINATOR [facility] Comment: THIS ASSAY IS NOT RECOMMENDED FOR PATIENTS UNDERGOING TREATMENT WITH ELTROMBOPAG DUE TO THE POTENTIAL FOR FALSELY ELEVATED RESULTS. TOTAL PROTEIN S/P/B 7.4 6.4 - 8.2 G/DL 12/20/2024 3:56 PM BRANCH EMPLOYMENT COORDINATOR [facility] ALBUMIN S/P/B 4.0 3.4 - 5.0 G/DL 12/20/2024 3:56 PM BRANCH EMPLOYMENT COORDINATOR [facility] AST 22 15 - 37 U/L 12/20/2024 3:56 PM BRANCH EMPLOYMENT COORDINATOR [facility] ALT 35 14 - 55 U/L 12/20/2024 3:56 PM BRANCH EMPLOYMENT COORDINATOR [facility] ALKALINE PHOSPHATASE S/P/B 85 50 - 136 U/L 12/20/2024 3:56 PM BRANCH EMPLOYMENT COORDINATOR [facility] ANION GAP 13.1 5.0 - 15.0 MMOL/L 12/20/2024 3:56 PM BRANCH EMPLOYMENT COORDINATOR [facility] BUN CREATININE RATIO 5.3(L) 6 - 26 12/20/2024 3:56 PM BRANCH EMPLOYMENT COORDINATOR [facility] A/G RATIO 1.2 1.0 - 2.5 RATIO 12/20/2024 3:56 PM BRANCH EMPLOYMENT COORDINATOR [facility] GFR ESTIMATE 77(L) >90 ML/MIN/1.7 3 M2 12/20/2024 3:56 PM BRANCH EMPLOYMENT COORDINATOR [facility] Comment: NOTE: eGFR is not calculated for patients <18 years of age. This is an estimated GFR calculation using the new CKD EPI creatinine equation without race and so does not require a correction factor for race. This estimated GFR should not be used for calculating drug doses. 12/20/2024 3:18 PM BRANCH EMPLOYMENT COORDINATOR us Randy Foreman MD LABORATORY Final Re sult [address] [place] [address], * CHORIONIC GONADOTROPIN HCG QL (12/20/2024 3:18 PM BRANCH EMPLOYMENT COORDINATOR) PREG SCREEN-SERUM NEGATIVE NEGATIVE 12/20/2024 3:52 PM BRANCH EMPLOYMENT COORDINATOR [facility] 12/20/2024 3:18 PM BRANCH EMPLOYMENT COORDINATOR us Randy Foreman MD LABORATORY Final Re sult [facility] [address] [place] [address], * CBC W/DIFF AUTOMATED (12/20/2024 3:18 PM BRANCH EMPLOYMENT COORDINATOR) WBC 6.36 4.50 - 11.00 x10'3/uL 12/20/2024 3:38 PM BRANCH EMPLOYMENT COORDINATOR [facility] RBC 4.97 4.00 - 5.20 x10'6/uL 12/20/2024 3:38 PM [facility] HGB 15.3 12.0 - 16.0 G/DL 12/20/2024 3:38 PM BRANCH EMPLOYMENT COORDINATOR [facility] HCT 45.3 38.0 - 48.0 % 12/20/2024 3:38 PM BRANCH EMPLOYMENT COORDINATOR [facility] MCV 91.1 80.0 - 100.0 FL 12/20/2024 3:38 PM [facility] MCH 30.8 26.0 - 34.0 PG 12/20/2024 3:38 PM [facility] MCHC 33.8 31.0 - 37.0 G/DL 12/20/2024 3:38 PM BRANCH EMPLOYMENT COORDINATOR [facility] RDW 12.5 11.6 - 14.8 % 12/20/2024 3:38 PM BRANCH EMPLOYMENT COORDINATOR [facility] PLT 322 130 - 400 x10'3/uL 12/20/2024 3:38 PM [facility] MPV 9.9 7.0 - 12.0 FL 12/20/2024 3:38 PM [facility] CBC COMMENT AUTOMATED RBC MORPHOLOGY AND PLATELET EVALUATION NORMAL 12/20/2024 3:38 PM BRANCH EMPLOYMENT COORDINATOR [facility] NEUTROPHILS % 51.9 40.0 - 74.0 % 12/20/2024 3:38 PM [facility] LYMPHOCYTES % 39.8 14.0 - 46.0 % 12/20/2024 3:38 PM [facility] MONOCYTES % 5.0 4.0 - 13.0 % 12/20/2024 3:38 PM [facility] EOSINOPHILS 2.2 0.0 - 7.0 % 12/20/2024 3:38 PM [facility] BASOPHILS 0.8 0.0 - 3.0 % 12/20/2024 3:38 PM [facility] IMMATURE GRANS % 0.3 0.0 - 0.43 % 12/20/2024 3:38 PM [facility] NRBC % 0.0 % 12/20/2024 3:38 PM [facility] ABS. NEUTROPHILS TOTAL 3.30 1.69 - 7.81 x10'3/uL 12/20/2024 3:38 PM [facility] ABS. LYMPHOCYTES 2.53 0.21 - 5.42 x10'3/uL 12/20/2024 3:38 PM [facility] ABS. MONOCYTES 0.32 0.04 - 1.37 x10'3/uL 12/20/2024 3:38 PM [facility] ABS. EOSINOPHILS 0.14 0.00 - 0.68 x10'3/uL 12/20/2024 3:38 PM [facility] ABS. BASOPHILS 0.05 0.00 - 0.08 x10'3/uL 12/20/2024 3:38 PM [facility] ABS. IMMATURE GRANULOCYTES 0.02 0.00 - 0.06 x10'3/uL 12/20/2024 3:38 PM [facility] ABS. NUCLEATED RBC'S 0.00 0.00 - 0.01 x10'3/uL 12/20/2024 3:38 PM [facility] 12/20/2024 3:18 PM BRANCH EMPLOYMENT COORDINATOR Randy Foreman MD LABORATORY Final Re sult Performing Organization Address City/[facility]/ZIP Co de Phone Number [facility] [address] [place] [address], * MAGNESIUM (12/20/2024 3:18 PM BRANCH EMPLOYMENT COORDINATOR) MAGNESIUM 1.8 1.8 - 2.4 MG/DL 12/20/2024 3:56 PM BRANCH EMPLOYMENT COORDINATOR [facility] 12/20/2024 3:18 PM BRANCH EMPLOYMENT COORDINATOR Randy Foreman MD LABORATORY Final Re sult Performing Organization Address [facility]/ZIP Co de Phone Number [facility] [address] [place] [address], [place] * LIPASE (12/20/2024 3:18 PM BRANCH EMPLOYMENT COORDINATOR) LIPASE 23 16 - 77 UNITS/L 12/20/2024 3:56 PM BRANCH EMPLOYMENT COORDINATOR [facility] 12/20/2024 3:18 PM BRANCH EMPLOYMENT COORDINATOR Randy Foreman MD LABORATORY Final Re sult Performing Organization Address [facility]/ZIP Co de Phone Number [facility] [address] [place] [address], from Last 3 Months Insurance [employer] Advance Directives * Full Code (Latest Code Status on File) Date Activated Date Inactivated Comments 05/13/2023 12:39 AM 05/22/2023 6:40 PM Care Teams [employer] Relationship Specialty Start Date End Date Randy Antonio MD [address] [place] [address] PCP - General PEDIATRICS 05/02/22
--- OUTSIDE RECORDS SUMMARY | 2025-03-19 13:06 | XMS_ITS | Patient Health Record ---
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 x 8 surgery total 2012 Hospitalization History Reason Date(Month/Year) [facility] - hospitalized multiple times after gastric bypass. 2012
--- OUTSIDE RECORDS SUMMARY | 2025-03-19 13:06 | XMS_ITS ---
Author Organization [facility], [place] Address [address] [place], [place] [address] Care Team Providers Care Panel Coverer Name Role Phone BRAYDON NOLASCO Primary Care Provider Jarrett Segovia Unavailable [phone] REASON FOR VISIT APPOINTMENTS CANCELLED Encounters Encounter Location Date Provider Diagnosis [address] [address] 12/03/2023 Jarrett Flowers PLAN OF TREATMENT No Information
--- OUTSIDE RECORDS SUMMARY | 2025-03-19 13:07 | XMS_ITS | Referral Summary ---
Author Organization [facility] Jarrod Guevara Address [address] [place] [address] Care Team Providers Care Tube Skiver Name Role Phone Randy Antonio MD Primary Care Provider [phone] Allergies Active Allergy Reactions Criticality Noted Date [...] 12/18/2021 Assessment & Plan (12/18/2021 5:37 PM CRUSHED STONE GRADER): Will obtain additional labs looking for other connective tissue diseases that were not known at the time of diagnosis. H/O gastric bypass 12/18/2021 Assessment & Plan (12/18/2021 5:37 PM CRUSHED STONE GRADER): Need to obtain routine labs to rule out nutritional deficiencies from the bypass. PUD (peptic ulcer disease) 07/25/2021 Free intraperitoneal air 09/10/2020 Morbid obesity (CMS/HCC) 01/10/2011 Immunizations Immunization Administration Dates Next Due Pfizer SARS-CoV-2 Monovalent [...] on file Legal Sex Female 8:58 AM CRUSHED STONE GRADER Gender Identity Not on file Sexual Orientation [...] Plan of Treatment Not on file Insurance [facility] Advance Directives For more information, please contact: [phone] * Full Code (Latest Code Status on File) Date Activated Date Inactivated Comments 02/27/2022 11:29 AM 03/02/2022 8:13 PM Care Teams Tube Skiver Relationship Specialty Start Date End Date Randy Antonio MD [address] [place] [address] PCP - General Pediatrics 01/05/24
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
--- OUTSIDE RECORDS SUMMARY | 2025-03-19 13:07 | XMS_ITS | Continuity of Care Document ---
Author Organization [facility] Address [address] [facility] [place] [address] Phone Care Team Providers Care Medical Receptionist Assistant Name Role Phone Tao Sharma MD Unavailable Unavailable Allergies, Adverse Reactions, Alerts Substance Reaction Status Criticality red dye Active No Information Sulfa (Sulfonamide Antibiotics) Active No Information Penicillins Active No Information Medications Medication Instructions Dosage Effective Dates (start - stop) Status Comments Klonopin 1 mg tablet take 1 tablet by oral route 3 times every day as needed 1 MG - Active PRN for anxi ety, avoid driving or operate machines Ambien 10 mg tablet take 1 tablet by oral route every day at bedtime 10 MG - Active baclofen 20 mg tablet take 1 tablet by oral route 3 times every day 20 MG - Active avoid driving or operate machines Wellbutrin SR 150 mg tablet,sustained-r elease take 1 tablet by oral route 2 times every day 150 MG - Active Procedures Procedure Date OFFICE/OUTPATIENT VISIT, EST OFFICE/OUTPATIENT VISIT, EST OFFICE/OUTPATIENT VISIT, EST OFFICE/OUTPATIENT VISIT, NEW Advance Directives Directive Yes / No Effective Date File Name No Information Encounters Encounter Description Practice Location Reason(s) For Visit Diagnoses Date Provider Providers Copied on Encounter [facility], [place], [address], [place], [id number], tel:[phone] [facility] [place] No Information 7 Zachary Burger. [address] [facility] [place], [address] , [place]. tel:[phone] Referring Provider: Ashkan Das [address], [place], [place], [id number]. tel:[phone] OFFICE/OUTPA TIENT VISIT, [facility], [address], [place], [place], [address], [place] [phone] [facility] [place] anxiety1 (chief complaint)fib romyalgia (chief complaint)D (chief complaint)low kcl (chief complaint) InsomniaGenerali zed Anxiety DisorderFibromya lgiaHyperlipidem ia 7 Zachary Burger. [address], [place], [place], [address] , [place]. tel:[phone] Referring Provider: Ashkan Das [address], [place], [place], [id number]. tel:[phone] OFFICE/OUTPA TIENT VISIT, [facility], [address] [place] [address] [address], [place], [place], [address], [place] tel:[phone] [facility] [place] fibromyalgia1 (chief complaint)anx iety1 (chief complaint)UTI 1 (chief complaint) FibromyalgiaUrin malvin tract infectionGeneral ized Anxiety Disorder 7 Zachary Burger. [address], [place], [place], [address] , [place]. [phone] Referring Provider: Ashkan Das [address], [place], [place], [address]. tel:[phone] OFFICE/OUTPA TIENT VISIT, [facility], [address], [place], [place], [address], [place] tel:[phone] [facility] [place] Fibromyalgia (chief complaint)Fib romyalgia1 (chief complaint)anx iety1 (chief complaint) FibromyalgiaHead acheGeneralized Anxiety Disorder 7 Zachary Burger. [address], [place], [place], [address] , [place]. tel:[phone] Referring Provider: Ashkan Das [address], [place], [place], [address]. tel:[phone] OFFICE/OUTPA TIENT VISIT, [facility], [address], [place], [place], [address], [place] tel:[phone] [facility] anxiety1 (chief complaint)fib romyalgia (chief complaint)fib romyalgia1 (chief complaint)ins omnia1 (chief complaint)hea dache1 (chief complaint) InsomniaDepressi onHeadacheFibrom yalgia 7 Zachary Burger. [address], [place], [place], [address] , [place]. tel:[phone] Referring Provider: Tao Sharma, [address], [place], [place], [address]. tel:[phone] Family History Family Member Type Diagnosis Age At Onset Father Problem (finding) Coronary artery disease 60 Father Problem (finding) Brother Problem (finding) Alive and well Brother Problem (finding) bipolar Mother Problem (finding) Alive and well Payers Payer name Insurance type Covered democrat ID Authoriza tion(s) No Information Social History Type Description Quantity Date Captured Comments Alcohol Use Details Unknown Caffeine Use Details Unknown Tobacco Use Status Smoking Status No Information Sex Female Chief Complaint And Reason For Visit No Information Plan Of Treatment Date Type Action Status No Information History Of Present Illness Encounter Date Complaint History Of Prese nt Illness anxiety1 Pt has chronic a nxiety and depression. Pt takes wellbutirn and klonpin pRN and doign ok. pt denies any suicidal or homicdial thought. Pt denies any crying spells fibromyalgia Additional infor mation: pt weaned herself off percocet. Pt doign ok. D Pt has mildly hi gh tG on lab. Pt is not on any diet low kcl Pt has borerline low kcl and high glucose. pt does not ahve DM according to A1c. . pt denies any polyuria, polydipsia fibromyalgia1 Pt has fibromyal sheri and chronic upper shoulder and neck pain. Pt was being managed by pain management in [place] with pain medication and also cervical injections. Pt denies any radiculopathy. Pt recently cut down percocet to TID during the last week. Pt is in the process of weaning down on percocet. anxiety1 Pt has chronic a nxiety and depression. pt takes wellbutrin and klonpin PRN and doing ok Pt denies any suicidal or homicdial thought. Pt denies any cyring spells UTI1 Pt c/o urinary b urning and frequency and urgency for one week. Pt denies any abd pain onr any flank pain. Pt denies any fever chill Fibromyalgia Fibromyalgia1 Pt has fibromyal sheri and also headache. Pt takes percocoet PRN for pain. Pt also takes zanaflex. Pt denies any wrosenign pain Pt was able to get off oxymorphone but she has been taking percocet for pain. Pt has chronic neck pain. Pt underwent nerve ablation around her neck. anxiety1 Pt has chronic a nxiety and depression. Pt takes wellbutrinand klonpin PRN and doing ok Pt denies any suicidal or homicidal thought Pt denies any cyring spells. Pt also has PTSD. Pt states that klonpin is only meds that is helping her for her anxiety and panic attacks anxiety1 Pt has chronic a nxiety and depression. Pt takes wellbutrin and high dose klonpin. Pt just moved back from [place]. Pt denies any suicidal or homicdial thought. Pt denies any crying spells. Pt has been taking klonpin 2 mg TID fibromyalgia1 Pt has fibromyal sheri. Pt has chornic neck and back pain Pt was seeing pain management and she had some cervical nevve ablation for pain Pt takes eprcocet QID for pain. Pt denies any radiculopathy, Pt denies any numbness. insomnia1 Pt has chornic i nsomnia. Pt takes zolpidem qhs PRN. Pt denies any snoring or any trouble with breathing at night. Pt had negative sleep study back in [place] 4 years ago fibromyalgia headache1 Pt has chronic h eadache. Pt had negative MRI of the brain in the past Pt is taking topamax daily but not working. Pt has chronic throbbing migraine headache. Pt denies any acute headache. pt denies ay worsening headache. Pt has migraine haedache 2-3 per week. Pt has nasuea and photophobia with headache. Pt denies any head injury. Pt denies waking up at night with headache Instructions Date Instruction Additional Infor mation Weight management Related to Ins omnia Quit smoking Related to Insom antonio Increase physical activity Relat ed to Insomnia Prescribed Diet Educ ation/Lifestyle Education Regarding Diet Related to Dietary Surveillance and Counseling Prescribed Activity and Exercise Education Related to Dietary Surveillance and Counseling Stop smoking Related to Fibro myalgia Medications as instructed Relate d to Fibromyalgia Prescribed Diet Educ ation/Lifestyle Education Regarding Diet Related to Dietary Surveillance and Counseling Prescribed Activity and Exercise Education Related to Dietary Surveillance and Counseling Weight management Related to Fib romyalgia Weight management Related to Fib romyalgia Increase physical activity Relat ed to Fibromyalgia Weight management Related to Fib romyalgia Increase physical activity Relat ed to Fibromyalgia Prescribed Diet Educ ation/Lifestyle Education Regarding Diet Related to Dietary Surveillance and Counseling Prescribed Activity and Exercise Education Related to Dietary Surveillance and Counseling Prescribed Diet Educ ation/Lifestyle Education Regarding Diet Related to Dietary Surveillance and Counseling Prescribed Activity and Exercise Education Related to Dietary Surveillance and Counseling Assessments Type Assessment Date No Information
--- OUTSIDE RECORDS SUMMARY | 2025-03-19 13:07 | XMS_ITS ---
Author Organization [facility] [place], [place] Address [address] [place], [place] [address] Care Team Providers Care Presbyterian Clergy Name Role Phone BRAYDON NOLASCO Primary Care Provider Jarrett Segovia Unavailable [phone] REASON FOR VISIT 7. TPI'S THROACIC AND LUMBAR PARASPINAL MUSCLES right sided mid back, low back Encounters Encounter Location Date Provider Diagnosis Rachael Weems [address] [address] 12/15/2023 Jarrett Flowers PLAN OF TREATMENT No [...]
--- OUTSIDE RECORDS SUMMARY | 2025-03-19 13:07 | XMS_ITS | Clinical Summary ---
Author Organization [facility] Jarrod Guevara Address [address] [place] [address] Care Team Providers Care Restaurant Busser Name Role Phone Randy Antonio MD Primary Care Provider [phone] Allergies Active Allergy Reactions Criticality Noted Date [...] 12/18/2021 Assessment & Plan (12/18/2021 5:37 PM PROPERTY INSURANCE AGENT): Will obtain additional labs looking for other connective tissue diseases that were not known at the time of diagnosis. H/O gastric bypass 12/18/2021 Assessment & Plan (12/18/2021 5:37 PM PROPERTY INSURANCE AGENT): Need to obtain routine labs to rule [...] on file Legal Sex Female 8:58 AM PROPERTY INSURANCE AGENT Gender Identity Not on file Sexual Orientation [...] Cancer Screening 1981 Hepatitis C Screening 1981 Varicella Vaccines (1 of 2 - 13+ 2-dose series) 1994 Hepatitis B Screening 1999 Pneumococcal vaccine <65 (1 of 2 - PCV) 2000 Depression Screening 12/18/2022 12/18/2021 Regular Well Visit/Exam 18-64 12/18/2022 12/18/2021 Covid-19 Vaccine (3 - 2023-2 5 season) 2024 04/03/2021, 03/12/2021 Influenza Vaccine (#1) 2024 DTaP/Tdap/Td Vaccine (2 - Td or Tdap) 07/15/2032 07/15/2022 HPV Vaccines Aged Out No longer eligi ble based on patient's age to complete this topic Insurance [facility] CHOICE PLUS [facility] HMO/PPO Address: [facility] [address] [place] [address] CHOICE PLUS [facility] HMO/PPO Address: [facility] [address] [place] [address] Advance Directives For more information, please contact: [phone] * Full Code (Latest Code Status on File) Date Activated Date Inactivated Comments 02/27/2022 11:29 AM 03/02/2022 8:13 PM Care Teams Restaurant Busser Relationship Specialty Start Date End Date Randy Antonio MD [address] [place] [address] PCP - General Pediatrics 01/05/24
--- OUTSIDE RECORDS SUMMARY | 2025-03-19 13:07 | XMS_ITS | Patient Health Record ---
Author Organization [facility] Address [address] [place] [address] Care Team Providers Care Business Intelligence Etl Developer Name Role Phone Catrachita Crandall Primary Care Provider Reason For Referral No Information Plan Of Treatment No Information Insurance Providers Payer Name Payer Address Payer Phone Subscriber Number Group Number Insured Name Patient Relationship to Insured Coverage Start Date Coverage End Date [facility] Attn Claims Department [address] [place] [id number] Niyah Shay Self - patient is the insured 3
--- OUTSIDE RECORDS SUMMARY | 2025-03-19 13:07 | XMS_ITS | Clinical Summary ---
Author Organization [facility] Definition 6 Address [address] [place] [address] Care Team Providers Care Fur Repair Inspector Name Role Phone Justin Antonio MD Primary Care Provider [phone] Source Comments [facility] Definition 6,non-owned Affiliates and Associated Physician Practices is amultiple site organization consisting of ambulatory clinics and hospital sitesin [place], [place], [place] and [place]. This disclosure is being madepursuant to the Care Everywhere program and may not contain all information available regarding this patient. Last updated 18.[facility] Definition 6 Allergies Active Allergy Reactions Criticality Noted Date Comments Ciprofloxacin Urticaria Medium 09/01/2024 Penicillins Anaphylaxis High 06/23/2010 Red Dye GI Discomfort 06/23/2010 Sulfa Drugs Unknown 06/23/2010 Medications * Be aware that medications may not be up to date on this document. Alwaysverify current medications with the patient. traZODone (DESYREL) 50 MG tablet Take 3 (three) tablets by mouth nightly as needed for Insomnia Active medroxyPROGESTE Nicolas (DEPO-PROVERA) 150 MG/ML prefilled syringe Inject 150 (one hundred fifty) mg into muscle Every 90 days Active acetaminophen (TYLENOL) 160 MG/5ML solution Take 31.25 mL by mouth every 8 hours 0 Active clonazePAM (KlonoPIN) 2 MG tablet Take [...] 31.25 mL by mouth every 8 hours 4 Active ondansetron, disintegrating, (Zofran ODT) 4 MG tablet Take 1 (one) tablet by mouth every 6 hours as needed for Nausea/Vomiting Allow tablet to dissolve on the tongue 20 tablet 4 Active vitamin D, ergocalciferol, (Drisdol) 1.25 MG (67922 UT) capsule Take 1 (one) capsule by mouth every 7 days 12 capsule 09/03/2024 2:31 PM CDT 4 Active omeprazole (PriLOSEC) 20 MG capsule Take 1 (one) capsule by mouth once daily 30 capsule 09/03/2024 2:31 PM CDT 4 Active senna-docusate (Senokot-S) 8.6-50 MG tablet Take 1 (one) tablet by mouth 2 times daily as needed for Constipation 4 Active magnesium hydroxide (Milk Of Magnesia) 400 MG/5ML suspension Take 15 mL by mouth as needed for Constipation 4 Active oxyCODONE (Roxicodone) 5 MG/5ML oral solutionIndicat ions:Morbid obesity (HCC) Take 5 mL by mouth every 6 hours as needed for Pain 120 mL 09/03/2024 2:31 PM CDT 4 Active methocarbamol (Robaxin) 750 MG tablet Take 1 (one) tablet by mouth nightly as needed for Muscle Spasms 30 tablet 4 Active Active Problems Problem Noted Date Diagnosed Date Abdominal pain, epigastric 08/09/2022 PUD (peptic ulcer disease) 07/25/2021 History of gastric bypass 07/25/2021 Free intraperitoneal air 09/10/2020 Resolved Problems Problem Noted Date Diagnosed Date Resolved Date Upper abdominal pain 07/25/2021 021 Encounters Date Type Department Care Team Description 12/20/2024 Telephone [facility] Definition 6 Weight Management Services [id number] [place] [address] Alicia Caceres, RN Returned Call from Last 3 Months Family History Medical [...] money to buy more. Never true 08/09/20 22 Within the past 12 months, t he food you bought just didn't last and you didn't have money to get more. Never true 08/09/2022 Comments No Sex and Gender Information Value Date Recorded Sex Assigned at Not on file Legal Sex Female 9:11 AM POTATO PANCAKE FRIER Gender Identity Not on file Sexual Orientation Not on file Last Filed Vital Signs Vital Sign Reading Time Taken Comments Blood Pressure 110/78 09/24/2024 8:22 AM POTATO PANCAKE FRIER Pulse 90 09/24/2024 8:22 AM POTATO PANCAKE FRIER Temperature 36.1 C (97 F) 09/24/2024 8:22 AM POTATO PANCAKE FRIER Respiratory Rate 18 09/03/2024 7:41 AM CDT Oxygen Saturation 97% 09/24/2024 8:22 AM POTATO PANCAKE FRIER Inhaled Oxygen Concentration - - Weight 88.7 kg (195 lb 9.6 oz) 09/24/2024 8:22 A M POTATO PANCAKE FRIER Height 167.6 cm (5' 6 ) 09/24/2024 8:22 AM POTATO PANCAKE FRIER Body Mass Index 31.57 09/24/2024 8:22 AM POTATO PANCAKE FRIER Plan of Treatment Health Maintenance Due Date Last Done Comments LIPID TESTING 1981 MAMMOGRAM 1981 PAP SMEAR 1981 HEPATITIS C SCREENING 03/20/1999 DTAP/TDAP/TD VACCINES (1 - Tdap) 2000 HEPATITIS B VACCINE (1 of 3 - 19+ 3-dose series) 2000 COVID-19 VACCINE (3 - 2023- season) 2024 04/03/2021, 03/12/2021 DEPRESSION SCREENING 11/17/2024 INFLUENZA VACCINE (Season Ended) 2025 10/28/2017, 09/30/2017 SCREENING FOR DIABETES 09/03/2027 , 09/03/2024, 09/03/2024, Additional history exists ZOSTER VACCINE (1 of 2) 2031 HIV SCREENING Completed 08/08/2022 HIB VACCINE Aged Out No longer eligi ble based on patient's age to complete this topic HPV VACCINE Aged Out No longer eligi ble based on patient's age to complete this topic MENINGOCOCCAL (Group B) VACCINE SHARED DECISION-MAKING Aged Out No longer eligible based on patient's age to complete this topic MENINGOCOCCAL GROUPS A/C/Y/W VACCINE Aged Out No longer eligible based [...] PANEL (CALCIUM TOTAL) (09/03/2024 4:41 AM CDT) [facility] Glucose 145(H) 70 - 99 mg/dL 09/03/2024 5:26 AM CDT [facility] Sodium 134(L) 136 - 145 mmol/L 09/03/2024 5:26 AM CDT [facility] Potassium 4.3 3.5 - 5.1 mmol/L 09/03/2024 5:26 AM CDT [facility] Chloride 108(H) 98 - 107 mmol/L 09/03/2024 5:26 AM CDT [facility] CO2 20(L) 22 - 29 mmol/L 09/03/2024 5:26 AM CDT [facility] Calcium 8.8 8.4 - 10.4 mg/dL 09/03/2024 5:26 AM CDT [facility] Anion Gap 6 6 - 16 mmol/L 09/03/2024 5:26 AM CDT [facility] BUN 5(L) 5.3 - 18.7 mg/dL 09/03/2024 5:26 AM CDT [facility] Creatinine 0.66 0.57 - 1.11 mg/dL 09/03/2024 5:26 AM CDT [facility] eGFR by CKD-EPI >90 >=90 mL/min/1.7 3 m2 09/03/2024 5:26 AM CDT [facility] Blood BLOOD SPECIMEN / Unknown Venipuncture / Unknown 09/03/2024 4:41 AM CDT 09/03/2024 4:47 AM CDT Cameron Clifton MD LAB - CHEMISTRY ORDERABLES F inal Result Performing Organization Address [facility] [employer] Phone Number [facility] [address] [place] [address] * HIV-1 HIV-2 ANTIBODY + HIV P24 AG PANEL (08/08/2022 6:18 PM CDT) [facility] HIV1/2 Ab + P24 Ag Non Reactive Non Reactive 08/08/2022 7:15 PM CDT [facility] Blood BLOOD SPECIMEN / Unknown Venipuncture / Unknown 08/08/2022 6:18 PM CDT 08/08/2022 6:25 PM CDT Narrative [facility] - 08/08/2022 7:15 PM CDT No Laboratory evidence of HIV infection. us Liana Hui MD LAB - CHEMISTRY ORDERABLES Fin al Result Performing Organization Address [facility] [employer] de Phone Number [facility] [address] [place] [address] from Last 3 Months or Most Recently Relevant to Health Maintenance Insurance [facility] MEDICAID [employer] [facility] [place] Advance Directives * Full Code (Latest Code [...] 5:01 AM 09/12/2020 7:41 PM Care Teams Fur Repair Inspector Relationship Specialty Start Date End Date Justin Antonio MD [address] [place] [address] PCP - General 10/15/18
--- OUTSIDE RECORDS SUMMARY | 2025-03-19 13:07 | XMS_ITS ---
Author Organization [facility], [place] Address [address] [place], [place] [address] Care Team Providers Care Dye Jig Operator Name Role Phone BRAYDON NOLASCO Primary Care Provider Jarrett Segovia Unavailable [phone] REASON FOR VISIT 1b. Follow Up Encounters Encounter Location Date Provider Diagnosis Rachael Weems [address] [address] 01/05/2024 Jarrett Flowers PLAN OF TREATMENT No Information
--- OUTSIDE RECORDS SUMMARY | 2025-03-19 14:14 | XMS_ITS | Referral Summary ---
Author Organization [facility] Jarrod Guevara Address [address] [place] [address] Care Team Providers Care Cable Television Installer Name Role Phone Randy Antonio MD Primary Care Provider [phone] Allergies Active Allergy Reactions Criticality Noted Date [...] 12/18/2021 Assessment & Plan (12/18/2021 5:37 PM SPIRITS MODEL): Will obtain additional labs looking for other connective tissue diseases that were not known at the time of diagnosis. H/O gastric bypass 12/18/2021 Assessment & Plan (12/18/2021 5:37 PM SPIRITS MODEL): Need to obtain routine labs to rule [...] on file Legal Sex Female 8:58 AM SPIRITS MODEL Gender Identity Not on file Sexual Orientation [...] Plan of Treatment Not on file Insurance [facility] CHOICE PLUS [facility] HMO/PPO Address: [facility] [address] [place] [address] [facility] H[facility]/PP[facility] Address: [address] [address] [place] [address] Advance Directives For more information, please contact: [phone] * Full Code (Latest Code Status on File) Date Activated Date Inactivated Comments 02/27/2022 11:29 AM 03/02/2022 8:13 PM Care Teams Cable Television Installer Relationship Specialty Start Date End Date Randy Antonio MD [address] [place] [address] PCP - General Pediatrics 01/05/24
--- OUTSIDE RECORDS SUMMARY | 2025-03-19 14:14 | XMS_ITS | Clinical Summary ---
Author Organization [facility] Address [facility] [place] [address] Care Team Providers Care Surveillance Inspector Name Role Phone Randy Antonio MD Primary Care Provider [phone] Allergies Active Allergy Reactions Criticality Noted Date [...] Problem Noted Date Diagnosed Date Intentional overdose ([facility]) 3 Drug overdose, intentional, initial encounter ([facility]) 05/13/2023 Encounters Date Type Department Care Team Description 12/20/2024 3:02 PM TWISTING MACHINE OPERATOR - 12/20/2024 4:40 PM TWISTING MACHINE OPERATOR [facility] [address] [place] [address] [place] [address] Randy Foreman MD Abdominal Pain Discharge Disposition: [...] place to sleep or slept in a fpc (including now)? Patient refused 05/17/2023 Comments No Sex and Gender Information Value Date Recorded Sex Assigned at Female 12/20/2024 3:05 PM TWISTING MACHINE OPERATOR Legal Sex Female 6:15 PM CDT Gender Identity Not on file Sexual Orientation Not on file Last Filed Vital Signs Vital Sign Reading Time Taken Comments Blood Pressure 118/94 12/20/2024 3:03 PM TWISTING MACHINE OPERATOR Pulse 118 12/20/2024 3:03 PM TWISTING MACHINE OPERATOR Temperature 36 C (96.8 F) 12/20/2024 3:03 PM TWISTING MACHINE OPERATOR Respiratory Rate 18 12/20/2024 3:03 PM TWISTING MACHINE OPERATOR Oxygen Saturation 98% 12/20/2024 3:03 PM TWISTING MACHINE OPERATOR Inhaled Oxygen Concentration - - Weight 86.2 kg (190 lb) 12/20/2024 3:03 PM TWISTING MACHINE OPERATOR Height 167.6 cm (5' 6 ) 12/20/2024 3:03 PM TWISTING MACHINE OPERATOR Body Mass Index 30.67 12/20/2024 3:03 PM TWISTING MACHINE OPERATOR Plan of Treatment Health Maintenance Due Date [...] transitions and discharge planning Lifestyle 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 Procedure Name Priority Date/Time Associated Diagnosis Comments CT ABD+PEL WO CON STAT 12/20/2024 3:3 5 PM TWISTING MACHINE OPERATOR URINALYSIS AUTO DIP STAT 12/20/2024 3 :18 PM TWISTING MACHINE OPERATOR CHORIONIC GONADOTROPIN HCG QL STAT 12/20/2024 3:18 PM TWISTING MACHINE OPERATOR MAGNESIUM STAT 12/20/2024 3:18 PM TWISTING MACHINE OPERATOR LIPASE STAT 12/20/2024 3:18 PM TWISTING MACHINE OPERATOR COMPREHENSIVE METABOLIC PANEL STAT 12/20/2024 3:18 PM TWISTING MACHINE OPERATOR CBC W/DIFF AUTOMATED STAT 12/20/2024 3:18 PM TWISTING MACHINE OPERATOR from Last 3 Months Results * CT ABD+PEL WO CON (12/20/2024 3:35 PM TWISTING MACHINE OPERATOR) Anatomical Region Laterality Modality Abdomen Computed Tomogra phy 12/20/2024 3:40 PM TWISTING MACHINE OPERATOR Impressions 12/20/2024 3:42 PM TWISTING MACHINE OPERATOR IMPRESSION: 1. No acute findings Ordered By: RANDY FOREMAN Interpreted By: Luis E Sweeney MD, 12/20/2024 3:40 PM Narrative 12/20/2024 3:42 PM TWISTING MACHINE OPERATOR [address] [place] [address] CT ABDOMEN AND PELVIS WITHOUT CONTRAST Clinical [...] Note Luis E Sweeney MD - 12/20/[address] [place] [address] CT ABDOMEN AND PELVIS WITHOUT CONTRAST Clinical [...] (ABNORMAL) URINALYSIS AUTO DIP (12/20/2024 3:18 PM TWISTING MACHINE OPERATOR) COLOR (U) YELLOW YELLOW 12/20/2024 3:59 PM TWISTING MACHINE OPERATOR [facility] TRANSPARENCY CLEAR CLEAR 12/20/2024 3:59 PM TWISTING MACHINE OPERATOR [facility] SPECIFIC GRAVITY (U) 1.010 1.010 - 1.025 12/20/2024 3:59 PM TWISTING MACHINE OPERATOR [facility] U PH 6.0 5.0 - 8.5 12/20/2024 3:59 PM TWISTING MACHINE OPERATOR [facility] LEUKOCYTES (U) NEGATIVE NEGATIVE 12/20/2024 3:59 PM TWISTING MACHINE OPERATOR [facility] NITRITES NEGATIVE NEGATIVE 12/20/2024 3:59 PM TWISTING MACHINE OPERATOR [facility] PROTEIN RANDOM (U) NEGATIVE NEGATIVE 12/20/2024 3:59 PM TWISTING MACHINE OPERATOR [facility] GLUCOSE (U) NEGATIVE NEGATIVE 12/20/2024 3:59 PM TWISTING MACHINE OPERATOR [facility] KETONES MG/DL (U) NEGATIVE NEGATIVE 12/20/2024 3:59 PM TWISTING MACHINE OPERATOR [facility] UROBILINOGEN 0.2 0.2 - 1.0 EU/DL 12/20/2024 3:59 PM TWISTING MACHINE OPERATOR [facility] BILIRUBIN (U) 1+(A) NEGATIVE 12/20/2024 3:59 PM TWISTING MACHINE OPERATOR [facility] BLOOD (U) TRACE(A) NEGATIVE 12/20/2024 3:59 PM TWISTING MACHINE OPERATOR [facility] URINE SPECIMEN OBTAINED BY CLEAN CATCH PROCEDURE / Unknown 12/20/2024 3:18 PM TWISTING MACHINE OPERATOR us Randy Foreman MD URINE ORDERABLES Final R esult [facility] [address] [place] [address], * (ABNORMAL) COMPREHENSIVE METABOLIC PANEL (12/20/2024 3:18 PM TWISTING MACHINE OPERATOR) GLUCOSE 94 70 - 99 MG/DL 12/20/2024 3:56 PM TWISTING MACHINE OPERATOR [facility] BUN 5(L) 7 - 18 MG/DL 12/20/2024 3:56 PM TWISTING MACHINE OPERATOR [facility] CREATININE S/P/B 0.94 0.50 - 1.20 MG/DL 12/20/2024 3:56 PM TWISTING MACHINE OPERATOR [facility] SODIUM S/P/B 142 136 - 145 MMOL/L 12/20/2024 3:56 PM TWISTING MACHINE OPERATOR [facility] POTASSIUM S/P/B 3.3(L) 3.5 - 5.1 MMOL/L 12/20/2024 3:56 PM TWISTING MACHINE OPERATOR [facility] CHLORIDE S/P/B 105 100 - 108 MMOL/L 12/20/2024 3:56 PM TWISTING MACHINE OPERATOR [facility] CO2 23.9 21.0 - 32.0 MMOL/L 12/20/2024 3:56 PM TWISTING MACHINE OPERATOR [facility] CALCIUM S/P/B 8.9 8.5 - 10.1 MG/DL 12/20/2024 3:56 PM TWISTING MACHINE OPERATOR [facility] BILIRUBIN TOTAL S/P/B 0.5 0.2 - 1.2 MG/DL 12/20/2024 3:56 PM TWISTING MACHINE OPERATOR [facility] Comment: THIS ASSAY IS NOT RECOMMENDED FOR PATIENTS UNDERGOING TREATMENT WITH ELTROMBOPAG DUE TO THE POTENTIAL FOR FALSELY ELEVATED RESULTS. TOTAL PROTEIN S/P/B 7.4 6.4 - 8.2 G/DL 12/20/2024 3:56 PM TWISTING MACHINE OPERATOR [facility] ALBUMIN S/P/B 4.0 3.4 - 5.0 G/DL 12/20/2024 3:56 PM TWISTING MACHINE OPERATOR [facility] AST 22 15 - 37 U/L 12/20/2024 3:56 PM TWISTING MACHINE OPERATOR [facility] ALT 35 14 - 55 U/L 12/20/2024 3:56 PM TWISTING MACHINE OPERATOR [facility] ALKALINE PHOSPHATASE S/P/B 85 50 - 136 U/L 12/20/2024 3:56 PM TWISTING MACHINE OPERATOR [facility] ANION GAP 13.1 5.0 - 15.0 MMOL/L 12/20/2024 3:56 PM TWISTING MACHINE OPERATOR [facility] BUN CREATININE RATIO 5.3(L) 6 - 26 12/20/2024 3:56 PM TWISTING MACHINE OPERATOR [facility] A/G RATIO 1.2 1.0 - 2.5 RATIO 12/20/2024 3:56 PM TWISTING MACHINE OPERATOR [facility] GFR ESTIMATE 77(L) >90 ML/MIN/1.7 3 M2 12/20/2024 3:56 PM TWISTING MACHINE OPERATOR [facility] Comment: NOTE: eGFR is not calculated for patients <18 years of age. This is an estimated GFR calculation using the new CKD EPI creatinine equation without race and so does not require a correction factor for race. This estimated GFR should not be used for calculating drug doses. 12/20/2024 3:18 PM TWISTING MACHINE OPERATOR us Randy Foreman MD LABORATORY Final Re sult [address] [place] [address], * CHORIONIC GONADOTROPIN HCG QL (12/20/2024 3:18 PM TWISTING MACHINE OPERATOR) PREG SCREEN-SERUM NEGATIVE NEGATIVE 12/20/2024 3:52 PM TWISTING MACHINE OPERATOR [facility] 12/20/2024 3:18 PM TWISTING MACHINE OPERATOR us Randy Foreman MD LABORATORY Final Re sult [facility] [address] [place] [address], * CBC W/DIFF AUTOMATED (12/20/2024 3:18 PM TWISTING MACHINE OPERATOR) WBC 6.36 4.50 - 11.00 x10'3/uL 12/20/2024 3:38 PM TWISTING MACHINE OPERATOR [facility] RBC 4.97 4.00 - 5.20 x10'6/uL 12/20/2024 3:38 PM [facility] HGB 15.3 12.0 - 16.0 G/DL 12/20/2024 3:38 PM TWISTING MACHINE OPERATOR [facility] HCT 45.3 38.0 - 48.0 % 12/20/2024 3:38 PM TWISTING MACHINE OPERATOR [facility] MCV 91.1 80.0 - 100.0 FL 12/20/2024 3:38 PM [facility] MCH 30.8 26.0 - 34.0 PG 12/20/2024 3:38 PM [facility] MCHC 33.8 31.0 - 37.0 G/DL 12/20/2024 3:38 PM TWISTING MACHINE OPERATOR [facility] RDW 12.5 11.6 - 14.8 % 12/20/2024 3:38 PM TWISTING MACHINE OPERATOR [facility] PLT 322 130 - 400 x10'3/uL 12/20/2024 3:38 PM [facility] MPV 9.9 7.0 - 12.0 FL 12/20/2024 3:38 PM [facility] CBC COMMENT AUTOMATED RBC MORPHOLOGY AND PLATELET EVALUATION NORMAL 12/20/2024 3:38 PM TWISTING MACHINE OPERATOR [facility] NEUTROPHILS % 51.9 40.0 - 74.0 % 12/20/2024 3:38 PM [facility] LYMPHOCYTES % 39.8 14.0 - 46.0 % 12/20/2024 3:38 PM [facility] MONOCYTES % 5.0 4.0 - 13.0 % 12/20/2024 3:38 PM [facility] EOSINOPHILS 2.2 0.0 - 7.0 % 12/20/2024 3:38 PM [facility] BASOPHILS 0.8 0.0 - 3.0 % 12/20/2024 3:38 PM [facility] IMMATURE GRANS % 0.3 0.0 - 0.43 % 12/20/2024 3:38 PM [facility] NRBC % 0.0 % 12/20/2024 3:38 PM [facility] ABS. NEUTROPHILS TOTAL 3.30 1.69 - 7.81 x10'3/uL 12/20/2024 3:38 PM [facility] ABS. LYMPHOCYTES 2.53 0.21 - 5.42 x10'3/uL 12/20/2024 3:38 PM [facility] ABS. MONOCYTES 0.32 0.04 - 1.37 x10'3/uL 12/20/2024 3:38 PM [facility] ABS. EOSINOPHILS 0.14 0.00 - 0.68 x10'3/uL 12/20/2024 3:38 PM [facility] ABS. BASOPHILS 0.05 0.00 - 0.08 x10'3/uL 12/20/2024 3:38 PM [facility] ABS. IMMATURE GRANULOCYTES 0.02 0.00 - 0.06 x10'3/uL 12/20/2024 3:38 PM [facility] ABS. NUCLEATED RBC'S 0.00 0.00 - 0.01 x10'3/uL 12/20/2024 3:38 PM [facility] 12/20/2024 3:18 PM TWISTING MACHINE OPERATOR Randy Foreman MD LABORATORY Final Re sult Performing Organization Address City/[facility]/ZIP Co de Phone Number [facility] [address] [address], * MAGNESIUM (12/20/2024 3:18 PM TWISTING MACHINE OPERATOR) MAGNESIUM 1.8 1.8 - 2.4 MG/DL 12/20/2024 3:56 PM TWISTING MACHINE OPERATOR [facility] 12/20/2024 3:18 PM TWISTING MACHINE OPERATOR Randy Foreman MD LABORATORY Final Re sult Performing Organization Address [facility]/ZIP Co de Phone Number [facility] [address] [place] [address], [place] * LIPASE (12/20/2024 3:18 PM TWISTING MACHINE OPERATOR) LIPASE 23 16 - 77 UNITS/L 12/20/2024 3:56 PM TWISTING MACHINE OPERATOR [facility] 12/20/2024 3:18 PM TWISTING MACHINE OPERATOR Randy Foreman MD LABORATORY Final Re sult Performing Organization Address [facility]/ZIP Co de Phone Number [facility] [address] [place] [address], from Last 3 Months Insurance [employer] Advance Directives * Full Code (Latest Code Status on File) Date Activated Date Inactivated Comments 05/13/2023 12:39 AM 05/22/2023 6:40 PM Care Teams Surveillance Inspector Relationship Specialty Start Date End Date Randy Antonio MD [address] [place] [address] PCP - General PEDIATRICS 05/02/22
--- OUTSIDE RECORDS SUMMARY | 2025-03-19 14:14 | XMS_ITS | Clinical Summary ---
Author Organization [facility] Jarrod Guevara Address [address] [place] [address] Care Team Providers Care System Administrator Name Role Phone Randy Antonio MD Primary Care Provider [phone] Allergies Active Allergy Reactions Criticality Noted Date [...] 12/18/2021 Assessment & Plan (12/18/2021 5:37 PM FRANCHISE DEVELOPMENT MANAGER): Will obtain additional labs looking for other connective tissue diseases that were not known at the time of diagnosis. H/O gastric bypass 12/18/2021 Assessment & Plan (12/18/2021 5:37 PM FRANCHISE DEVELOPMENT MANAGER): Need to obtain routine labs to rule [...] on file Legal Sex Female 8:58 AM FRANCHISE DEVELOPMENT MANAGER Gender Identity Not on file Sexual Orientation [...] patient's age to complete this topic Insurance [facility] CHOICE PLUS CHOICE PLUS Advance Directives For more information, please contact: [phone] * Full Code (Latest Code Status on File) Date Activated Date Inactivated Comments 02/27/2022 11:29 AM 03/02/2022 8:13 PM Care Teams System Administrator Relationship Specialty Start Date End Date Randy Antonio MD [address] [place] [address] PCP - General Pediatrics 01/05/24
--- OUTSIDE RECORDS SUMMARY | 2025-03-19 14:14 | XMS_ITS | Continuity of Care Document ---
Author Organization [facility] Address [address] [place] [address] Phone Care Team Providers Care Sparmaker Name Role Phone Tao Sharma MD Unavailable [...] Diagnoses Date Provider Providers Copied on Encounter [facility] [place], [address] [place], [place], [id number], tel:[phone] [facility] [place] No Information [address]. [address] [facility] [place], [address] , [place]. tel:[phone] Referring Provider: Ashkan Das [address], [place], [place], [id number]. tel:[phone] OFFICE/OUTPA TIENT VISIT, [facility], [address], [place], [place], [address], [place] [phone] [facility] [place] anxiety1 (chief complaint)fib romyalgia (chief complaint)D (chief complaint)low kcl (chief complaint) InsomniaGenerali zed Anxiety DisorderFibromya lgiaHyperlipidem ia [address]. [address], [place], [place], [address] , [place]. tel:[phone] Referring Provider: Ashkan Das [address], [place], [place], [address]. tel:[phone] OFFICE/OUTPA TIENT VISIT, [facility], [address] [place] [address] [address], [place], [place], [address], [place] tel:[phone] [facility] [place] fibromyalgia1 (chief complaint)anx iety1 (chief complaint)UTI 1 (chief complaint) FibromyalgiaUrin malvin tract infectionGeneral ized Anxiety Disorder [address]. [address], [place], [place], [address] , [place]. tel:[phone] Referring Provider: Ashkan Das [address], [place], [place], [address]. tel:[phone] OFFICE/OUTPA TIENT VISIT, [facility], [address], [place], [place], [address], [place] tel:[phone] [facility] [place] Fibromyalgia (chief complaint)Fib romyalgia1 (chief complaint)anx iety1 (chief complaint) FibromyalgiaHead acheGeneralized Anxiety Disorder 7 [address]. [address], [place], [place], [address] , [place]. tel:[phone] Referring Provider: Ashkan Das [address], [place], [place], [address]. tel:[phone] OFFICE/OUTPA TIENT VISIT, [facility], [address], [place], [place], [address], [place] tel:[phone] [facility] anxiety1 (chief complaint)fib romyalgia (chief complaint)fib romyalgia1 (chief complaint)ins omnia1 (chief complaint)hea dache1 (chief complaint) InsomniaDepressi onHeadacheFibrom yalgia 7 Zach[address]. [address], [place], [place], [address] , [place]. tel:[phone] Referring Provider: Tao Sharma, [address], [place], [place], [address]. tel:[phone] Family History Family Member Type Diagnosis Age At Onset Father Problem (finding) Coronary artery disease 60 Father Problem (finding) Brother Problem (finding) Alive and well Brother Problem (finding) bipolar Mother Problem (finding) Alive and well Payers Payer name Insurance type Covered green party ID Authoriza tion(s) No Information Social History [...] was being managed by pain management in [place] with pain medication and also cervical injections. [...] dose klonpin. Pt just moved back from [place]. Pt denies any suicidal or homicdial thought. [...] Pt had negative sleep study back in [place] 4 years ago fibromyalgia headache1 Pt has [...] headache Instructions Date Instruction Additional Infor mation Prescribed Activity and Exercise Education Related to Dietary Surveillance and Counseling Prescribed Diet Educ ation/Lifestyle Education Regarding Diet Related to Dietary Surveillance and Counseling Increase physical activity Relat ed to Insomnia Quit smoking Related to Insom antonio Weight management Related to Ins omnia Prescribed Activity and Exercise Education Related to Dietary Surveillance and Counseling Prescribed Diet Educ ation/Lifestyle Education Regarding Diet Related to Dietary Surveillance and Counseling Medications as instructed Relate d to Fibromyalgia Stop smoking Related to Fibro myalgia Prescribed Activity and Exercise Education Related to Dietary Surveillance and Counseling Prescribed Diet Educ ation/Lifestyle Education Regarding Diet Related to Dietary Surveillance and Counseling Increase physical activity Relat ed to Fibromyalgia Weight management Related to Fib romyalgia Increase physical activity Relat ed to Fibromyalgia Weight management Related to Fib romyalgia Weight management Related to Fib romyalgia Prescribed Activity and Exercise Education Related to Dietary Surveillance and Counseling Prescribed Diet Educ ation/Lifestyle Education Regarding Diet Related to Dietary Surveillance and Counseling Assessments Type Assessment Date No Information
--- OUTSIDE RECORDS SUMMARY | 2025-03-19 14:14 | XMS_ITS | Clinical Summary ---
Author Organization [facility] Address [address] [place] [address] Care Team Providers Care Aluminum Molding Machine Operator Name Role Phone Justin Antonio MD Primary Care Provider [phone] Source Comments [facility],non-owned Affiliates and Associated Physician Practices is amultiple site organization consisting of ambulatory clinics and hospital sitesin [place], [place], [place] and [place]. This disclosure is being madepursuant to the Care Everywhere program and may not contain all information available regarding this patient. Last updated 18.[facility] Allergies Active Allergy Reactions Criticality Noted Date [...] Active vitamin D, ergocalciferol, (Drisdol) 1.25 MG (12217 UT) capsule Take 1 (one) capsule by [...] Type Department Care Team Description 12/20/2024 Telephone [facility] [address], [address] [place] [address] Alicia Caceres, RN Returned Call [...] on file Legal Sex Female 9:11 AM ADMINISTRATIVE SERVICES DIRECTOR Gender Identity Not on file Sexual Orientation Not on file Last Filed Vital Signs Vital Sign Reading Time Taken Comments Blood Pressure 110/78 09/24/2024 8:22 AM ADMINISTRATIVE SERVICES DIRECTOR Pulse 90 09/24/2024 8:22 AM ADMINISTRATIVE SERVICES DIRECTOR Temperature 36.1 C (97 F) 09/24/2024 8:22 AM ADMINISTRATIVE SERVICES DIRECTOR Respiratory Rate 18 09/03/2024 7:41 AM CDT Oxygen Saturation 97% 09/24/2024 8:22 AM ADMINISTRATIVE SERVICES DIRECTOR Inhaled Oxygen Concentration - - Weight 88.7 kg (195 lb 9.6 oz) 09/24/2024 8:22 A M ADMINISTRATIVE SERVICES DIRECTOR Height 167.6 cm (5' 6 ) 09/24/2024 8:22 AM ADMINISTRATIVE SERVICES DIRECTOR Body Mass Index 31.57 09/24/2024 8:22 AM ADMINISTRATIVE SERVICES DIRECTOR Plan of Treatment Health Maintenance Due Date [...] PANEL (CALCIUM TOTAL) (09/03/2024 4:41 AM CDT) [facility] Glucose 145(H) 70 - 99 mg/dL 09/03/2024 5:26 AM CDT [facility] Sodium 134(L) 136 - 145 mmol/L 09/03/2024 5:26 AM CDT [facility] Potassium 4.3 3.5 - 5.1 mmol/L 09/03/2024 5:26 AM CDT [facility] Chloride 108(H) 98 - 107 mmol/L 09/03/2024 5:26 AM CDT [facility] CO2 20(L) 22 - 29 mmol/L 09/03/2024 5:26 AM CDT [facility] Calcium 8.8 8.4 - 10.4 mg/dL 09/03/2024 5:26 AM CDT [facility] Anion Gap 6 6 - 16 mmol/L 09/03/2024 5:26 AM CDT [facility] BUN 5(L) 5.3 - 18.7 mg/dL 09/03/2024 5:26 AM CDT [facility] Creatinine 0.66 0.57 - 1.11 mg/dL 09/03/2024 5:26 AM CDT [facility] eGFR by CKD-EPI >90 >=90 mL/min/1.7 3 m2 09/03/2024 5:26 AM CDT [facility] Blood BLOOD SPECIMEN / Unknown Venipuncture / Unknown 09/03/2024 4:41 AM CDT 09/03/2024 4:47 AM CDT Cameron Clifton MD LAB - CHEMISTRY ORDERABLES F inal Result Performing Organization Address [facility] Co de Phone Number [facility] [address] [place] [address] * HIV-1 HIV-2 ANTIBODY + HIV P24 AG PANEL (08/08/2022 6:18 PM CDT) [facility] HIV1/2 Ab + P24 Ag Non Reactive Non Reactive 08/08/2022 7:15 PM CDT [facility] Blood BLOOD SPECIMEN / Unknown Venipuncture / Unknown 08/08/2022 6:18 PM CDT 08/08/2022 6:25 PM CDT Narrative [facility] - 08/08/2022 7:15 PM CDT No Laboratory evidence of HIV infection. us Liana Hui MD LAB - CHEMISTRY ORDERABLES Fin al Result Performing Organization Address [facility] Co de Phone Number [facility] [address] [place] [address] from Last 3 Months or Most Recently Relevant to Health Maintenance Insurance [facility] MEDICAID [employer] [facility] [place] Advance Directives [...] 5:01 AM 09/12/2020 7:41 PM Care Teams Aluminum Molding Machine Operator Relationship Specialty Start Date End Date Justin Antonio MD [address] [place] [address] PCP - General 10/15/18
== END 2025-03-18 17:10 | disposition home or self-care (01) ==
PROVIDERS: Emergency Medicine; Emergency Provider Registered Nurse; PCP Pediatrics
DX: R10.13 Epigastric pain (principal); R13.10 Dysphagia, unspecified; Z98.84 Bariatric surgery status; M79.7 Fibromyalgia; F41.9 Anxiety disorder, unspecified; F32.A Depression, unspecified; F17.210 Nicotine dependence, cigarettes, uncomplicated; F17.293 Nicotine dependence, other tobacco product, with withdrawal; Z90.49 Acquired absence of other specified parts of digestive tract
CPT/HCPCS: 36415; 70491; 71275; 74177; 80053; 80307; 81001; 81025; 83690; 83880; 84484; 85025; 85610; 85730; 93005; 96374; 96375; 96376; 99284; J1171; J2405; Q9967

== ENCOUNTER 2025-04-19 06:50 | Observation (INO) | payer OTHER, SELFPAY ==
[2025-04-19] VITALS (10 sets, daily range): BP systolic 107–144; BP diastolic 60–100; PULSE 79–114; RESP 11–23; TEMP 35.8–36.7; O2SAT 93–100; BMI 28.8
--- NOTE | ~2025-04-19 | XR_ITS ---
EXAMINATION: XR chest 2V 04/19/2025 08:06 INDICATION: Chest pain PROCEDURE: 2 view chest COMPARISON: Comparison to multiple prior studies sequentially, with oldest reviewed study dated 10/17. FINDINGS: The lungs are clear. There is moderate gas below the diaphragm with elevated left diaphragm . The cardiomediastinal silhouette is within normal limits. There are no pleural effusions. There i s no pneumothorax suspected. IMPRESSION: 1: NO ACUTE CARDIOPULMONARY DISEASE. Reviewed, dictated and finalized at location A.
--- OUTSIDE RECORDS SUMMARY | 2025-04-19 06:54 | XMS_ITS | Referral Summary ---
Author Organization [facility] Jarrod Guevara Address [address] [place] [address] Care Team Providers Care Digital Manager Name Role Phone Randy Antonio MD Primary Care Provider [phone] Allergies Active Allergy Reactions Criticality Noted Date [...] 12/18/2021 Assessment & Plan (12/18/2021 5:37 PM HEALTH PLAN ADVISOR): Will obtain additional labs looking for other connective tissue diseases that were not known at the time of diagnosis. H/O gastric bypass 12/18/2021 Assessment & Plan (12/18/2021 5:37 PM HEALTH PLAN ADVISOR): Need to obtain routine labs to rule [...] on file Legal Sex Female 8:58 AM HEALTH PLAN ADVISOR Gender Identity Not on file Sexual Orientation [...] P M CDT Height 167.6 cm (5' 6) 07/10/2022 5:04 PM CDT Body Mass Index 29.11 07/10/2022 5:04 PM CDT Plan of Treatment Not on file Insurance [facility] CHOICE PLUS [facility] HMO/PPO Address: [facility] [address] [place] [address] [facility]/PP[facility] Address: [address] [address] [place] [address] Advance Directives For more information, please contact: [phone] * Full Code (Latest Code Status on File) Date Activated Date Inactivated Comments 02/27/2022 11:29 AM 03/02/2022 8:13 PM Care Teams Digital Manager Relationship Specialty Start Date End Date Randy Antonio MD [address] [place] [address] PCP - General Pediatrics 01/05/24
--- OUTSIDE RECORDS SUMMARY | 2025-04-19 06:54 | XMS_ITS | Clinical Summary ---
Author Organization [facility] Frequency Address [address] [place] [address] Care Team Providers Care Rn Staff Name Role Phone Justin Antonio MD Primary Care Provider [phone] Source Comments [facility] Frequency,non-owned Affiliates and Associated Physician Practices is amultiple site organization consisting of ambulatory clinics and hospital sitesin [place], [place], [place] and [place]. This disclosure is being madepursuant to the Care Everywhere program and may not contain all information available regarding this patient. Last updated 18.[facility] Frequency Allergies Active Allergy Reactions Criticality Noted Date [...] Active vitamin D, ergocalciferol, (Drisdol) 1.25 MG (64554 UT) capsule Take 1 (one) capsule by [...] Resolved Date Upper abdominal pain 07/25/2021 021 Family History Medical History Relation Name Comments [...] on file Legal Sex Female 9:11 AM CLAM GRADER Gender Identity Not on file Sexual Orientation Not on file Last Filed Vital Signs Vital Sign Reading Time Taken Comments Blood Pressure 110/78 09/24/2024 8:22 AM CLAM GRADER Pulse 90 09/24/2024 8:22 AM CLAM GRADER Temperature 36.1 C (97 F) 09/24/2024 8:22 AM CLAM GRADER Respiratory Rate 18 09/03/2024 7:41 AM CDT Oxygen Saturation 97% 09/24/2024 8:22 AM CLAM GRADER Inhaled Oxygen Concentration - - Weight 88.7 kg (195 lb 9.6 oz) 09/24/2024 8:22 A M CLAM GRADER Height 167.6 cm (5' 6) 09/24/2024 8:22 AM CLAM GRADER Body Mass Index 31.57 09/24/2024 8:22 AM CLAM GRADER Plan of Treatment Health Maintenance Due Date Last Done Comments LIPID TESTING 1981 MAMMOGRAM 1981 PAP SMEAR 1981 HEPATITIS C SCREENING 03/20/1999 DTAP/TDAP/TD VACCINES (1 - Tdap) 2000 HEPATITIS B VACCINE (1 of 3 - 19+ 3-dose series) 2000 COVID-19 VACCINE ( - season) 2024 04/03/2021, 03/12/2021 DEPRESSION SCREENING 11/17/2024 [...] - 10.4 mg/dL 09/03/2024 5:26 AM CDT [facility] Anion Gap 6 6 - 16 mmol/L 09/03/2024 5:26 AM CDT [facility] BUN 5(L) 5.3 - 18.7 mg/dL 09/03/2024 5:26 AM CDT [facility] Creatinine 0.66 0.57 - 1.11 mg/dL 09/03/2024 5:26 AM CDT [facility] eGFR by CKD-EPI >90 >=90 mL/min/1.7 3 m2 09/03/2024 5:26 AM CDT [facility] Blood BLOOD SPECIMEN / Unknown Venipuncture / Unknown 09/03/2024 4:41 AM CDT 09/03/2024 4:47 AM CDT Cameron Clifton MD LAB - CHEMISTRY ORDERABLES F inal Result Performing Organization Address [facility] Co de Phone Number [facility] [address] [place] [address] * HIV-1 HIV-2 ANTIBODY + [...] infection. Liana Hui MD LAB - CHEMISTRY ORDERABLES Fin al Result Performing Organization Address [facility] Co de Phone Number [facility] [address] [place] [address] from Last 3 Months or Most Recently Relevant to Health Maintenance Insurance [facility] MEDICA[facility] [employer] [place] Advance [...] 5:01 AM 09/12/2020 7:41 PM Care Teams Rn Staff Relationship Specialty Start Date End Date Justin Antonio MD [address] [place] [address] PCP - General 10/15/18
--- OUTSIDE RECORDS SUMMARY | 2025-04-19 06:54 | XMS_ITS | Patient Health Record ---
Author Organization [facility], [place] Address [address] [place], [place] [id number] Care Team Providers Care Human Resources Professional Name Role Phone BRAYDON NOLASCO Primary Care [...] Once a day Active Ergocalciferol 1.25 MG (20902 UT) 1 capsule Orally Once a week [...] syndrome (G89.4) Active confirmed Chronic pain syndrome (569886321) PLAN OF TREATMENT No Information MEDICAL (GENERAL) [...] surgery total 2012 Hospitalization History Reason Date(Month/Year) [facility] - hospitalized multiple times after gastric bypass. 2012
--- OUTSIDE RECORDS SUMMARY | 2025-04-19 06:54 | XMS_ITS | Clinical Summary ---
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 H/O gastric bypass 12/18/2021 Assessment & Plan (12/18/2021 5:37 PM VICE PRESIDENT OF SALES): Need to obtain routine labs to rule [...] on file Legal Sex Female 8:58 AM VICE PRESIDENT OF SALES Gender Identity Not on file Sexual Orientation [...] 5 season) 2024 04/03/2021, 03/12/2021 Influenza Vaccine (Season Ended) 2025 DTaP/Tdap/Td Vaccine (2 - Td or Tdap) 07/15/2032 07/15/2022 HPV Vaccines Aged Out No longer eligi ble based on patient's age to complete this topic Insurance [facility] CHOICE PLUS CHOICE PLUS Advance Directives For more information, please contact: [phone] * Full Code (Latest Code Status on File) Date Activated Date Inactivated Comments 02/27/2022 11:29 AM 03/02/2022 8:13 PM Care Teams Marine Engine Driver Relationship Specialty Start Date End Date Randy Antonio MD [address] [place] [id number] PCP - General Pediatrics 01/05/24
--- OUTSIDE RECORDS SUMMARY | 2025-04-19 06:54 | XMS_ITS ---
Author Organization [facility], [place] Address [address] [place], [place] [id number] Care Team Providers Care Logging Crew Supervisor Name Role Phone BRAYDON NOLASCO Primary Care Provider Jarrett Segovia Unavailable [phone] REASON FOR VISIT APPOINTMENTS CANCELLED Encounters Encounter Location Date Provider Diagnosis [address] [address] 12/03/2023 Jarrett Flowers PLAN OF TREATMENT No Information
--- OUTSIDE RECORDS SUMMARY | 2025-04-19 06:55 | XMS_ITS ---
Author Organization [facility] [place], [place] Address [address] [place], [place] [id number] Care Team Providers Care Customs Verifier Name Role Phone BRAYDON NOLASCO Primary Care Provider Jarrett Segovia Unavailable [phone] REASON FOR VISIT 7. TPI'S THROACIC AND LUMBAR PARASPINAL MUSCLES right sided mid back, low back Encounters Encounter Location Date Provider Diagnosis Racheal Weems [address] [address] 12/15/2023 Jarrett Flowers PLAN OF TREATMENT No [...]
--- OUTSIDE RECORDS SUMMARY | 2025-04-19 06:55 | XMS_ITS | Patient Health Record ---
Author Organization [facility] Address [address] [place] [address] Care Team Providers Care Allergy And Immunology Chief Name Role Phone Catrachita Crandall Primary Care Provider [phone] Reason For Referral No Information Plan Of Treatment No Information Insurance Providers Payer Name Payer Address Payer Phone Subscriber Number Group Number Insured Name Patient Relationship to Insured Coverage Start Date Coverage End Date [facility] Attn Claims Department [address] [place] [address] [id number] Niyah Shay Self - patient is the insured 3
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
--- OUTSIDE RECORDS SUMMARY | 2025-04-19 06:55 | XMS_ITS ---
Author Organization [facility] [place] Address [address] [place], [place] [id number] Care Team Providers Care Risk Specialist Name Role Phone BRAYDON NOLASCO Primary Care Provider Jarrett Segovia Unavailable [phone] REASON FOR VISIT 1b. Follow Up Encounters Encounter Location Date Provider Diagnosis [place] [address] [address] 01/05/2024 Jarrett Flowers PLAN OF TREATMENT No Information
--- NOTE | 2025-04-19 07:13 | ECG_ITS ---
Test Date: 2025-04-19 07:21:30 Measurements Intervals [place] Rate: 94 P: 146 GA: 118 QRS: 159 QRSD: 89 T: 202 QT: 353 QTc: 442 Interpretive Statements SINUS RHYTHM LIMB LEAD REVERSAL ST-T WAVE ABNORMALITY IN INFERIOR LEADS- CONSIDER ISCHEMIA ABNORMAL ECG Compared to ECG 03/18/2025 15:07:19 NO SIGNIFICANT CHANGE Electronically Signed On 04-19-2025 07:54:22 CDT by Manohar Knutson D.O.
[2025-04-19 07:51] LABS: Basophils Absolute Auto 0.1 K/mm3 (0.0-0.1); Basophils Percent Auto 0.8 % (0.2-1.2); Eosinophils Absolute Auto 0.1 K/mm3 (0-0.3); Eosinophils Percent Auto 1.3 % (0-4.4); Hematocrit 40.6 % (37.0-47.0); Hemoglobin 13.5 g/dL (12.0-15.0); Immature Granulocyte Absolute 0.01 K/mm3 (0.00-0.031); Immature Granulocyte Percent A 0.2 % (0-0.5); Lymphocytes Absolute Auto 2.92 K/mm3 (0.9-3.2); Mean Corpuscular HGB Conc 33.3 g/dl (32-36); Mean Corpuscular Hemoglobin 30.9 pg (26-34); Mean Corpuscular Volume 92.9 fl (80-100); Mean Platelet Volume 9.6 fl (7.4-10.4); Monocytes Absolute Auto 0.4 K/mm3 (0.1-0.6); Monocytes Percent Auto 6.6 % (2.6-8.5); Neutrophils Absolute Auto 2.7 K/mm3 (1.3-6.7); Neutrophils Percent Auto 44.1 % (45.5-73.1); Platelet Count Result 307 k/mm3 (150-375); Red Blood Count 4.37 M/mm3 (4.2-5.4); Red Cell Distribution Width 12.6 % (11.5-14.5); White Blood Count 6.2 K/mm3 (4.5-10.0)
--- NOTE | 2025-04-19 07:52 | PC.NURSE ---
two attempts made for iv access, labs drawn with straight stick, ultrasound rn at bedside at this time for iv access
[2025-04-19 08:20] LABS: Anion Gap 9 mmol/L (4-12); Blood Urea Nitrogen 5 mg/dL (7-17); Carbon Dioxide 21 mmol/L (22-30); Chloride 108 mmol/L (98-107); Estimated CRCL calculation 94 ml/min; Estimated Glomerular Filt Rate > 60; Glucose 95 mg/dL (65-110); Potassium 3.2 mmol/L (3.4-5.0); Sodium 138 mmol/L (137-145)
[2025-04-19 08:21] LABS: Alanine Aminotransferase 20 U/L (6-35); Albumin Level 4.2 g/dL (3.5-5.1); Alkaline Phosphatase 68 U/L (38-126); Aspartate Amino Transferase 26 U/L (14-36); Bilirubin,Total 0.7 mg/dL (0.2-1.3); Calcium 9.4 mg/dL (8.4-10.2); Lipase 50 U/L (23-300); Troponin I < 0.012 ng/mL (0.000-0.034)
[2025-04-19] MEDS: POTASSIUM CHLORIDE 20 MEQ PACKET (FOR LIQUID) 40 MEQ PO (08:47)
[2025-04-19] MEDS: PANTOPRAZOLE SODIUM IV 40 MG VIAL IV PUSH ×2 (08:47→21:08)
[2025-04-19] MEDS: FAMOTIDINE 20 MG/2 ML VIAL IV PUSH (08:47)
--- OUTSIDE RECORDS SUMMARY | 2025-04-19 08:48 | XMS_ITS | Clinical Summary ---
Author Organization [facility] Jarrod Guevara Address [address] [place] [address] Care Team Providers Care Animal Rehabilitator Name Role Phone Randy Antonio MD Primary Care Provider [phone]- [phone] Allergies Active Allergy Reactions Criticality Noted Date [...] 12/18/2021 Assessment & Plan (12/18/2021 5:37 PM PASTE UP ARTIST APPRENTICE): Will obtain additional labs looking for other connective tissue diseases that were not known at the time of diagnosis. H/O gastric bypass 12/18/2021 Assessment & Plan (12/18/2021 5:37 PM PASTE UP ARTIST APPRENTICE): Need to obtain routine labs to rule [...] on file Legal Sex Female 8:58 AM PASTE UP ARTIST APPRENTICE Gender Identity Not on file Sexual Orientation [...] patient's age to complete this topic Insurance [facility] CHOICE PLUS CHOICE PLUS Advance Directives For more information, please contact: [phone] * Full Code (Latest Code Status on File) Date Activated Date Inactivated Comments 02/27/2022 11:29 AM 03/02/2022 8:13 PM Care Teams Animal Rehabilitator Relationship Specialty Start Date End Date Randy Antonio MD [address] [place] [id number] PCP - General Pediatrics 01/05/24
--- OUTSIDE RECORDS SUMMARY | 2025-04-19 08:48 | XMS_ITS | Referral Summary ---
Author Organization [facility] Jarrod Guevara Address [address] [place] [address] Care Team Providers Care Casing Worker Name Role Phone Randy Antonio MD Primary Care Provider [phone]- [phone] Allergies Active Allergy Reactions Criticality Noted Date [...] 12/18/2021 Assessment & Plan (12/18/2021 5:37 PM EMISSION TECHNICIAN): Will obtain additional labs looking for other connective tissue diseases that were not known at the time of diagnosis. H/O gastric bypass 12/18/2021 Assessment & Plan (12/18/2021 5:37 PM EMISSION TECHNICIAN): Need to obtain routine labs to rule [...] on file Legal Sex Female 8:58 AM EMISSION TECHNICIAN Gender Identity Not on file Sexual Orientation [...] Plan of Treatment Not on file Insurance [facility] [place] [address] Advance Directives For more information, please contact: [phone] * Full Code (Latest Code Status on File) Date Activated Date Inactivated Comments 02/27/2022 11:29 AM 03/02/2022 8:13 PM Care Teams Casing Worker Relationship Specialty Start Date End Date Randy Antonio MD [address] [place] [address] PCP - General Pediatrics 01/05/24
--- OUTSIDE RECORDS SUMMARY | 2025-04-19 08:48 | XMS_ITS | Clinical Summary ---
Author Organization [facility] Address [address] [place] [address] Care Team Providers Care Insulation Sprayer Name Role Phone Justin Antonio MD Primary Care Provider [phone] Source Comments [facility],non-owned Affiliates and Associated Physician Practices is amultiple site organization consisting of ambulatory clinics and hospital sitesin [place], [place], [place] and [place]. This disclosure is being madepursuant to the Care Everywhere program and may not contain all information available regarding this patient. Last updated 18.[facility] Allergies Active Allergy Reactions Criticality Noted Date [...] Active vitamin D, ergocalciferol, (Drisdol) 1.25 MG (91147 UT) capsule Take 1 (one) capsule by [...] on file Legal Sex Female 9:11 AM STAFF FORESTER Gender Identity Not on file Sexual Orientation Not on file Last Filed Vital Signs Vital Sign Reading Time Taken Comments Blood Pressure 110/78 09/24/2024 8:22 AM STAFF FORESTER Pulse 90 09/24/2024 8:22 AM STAFF FORESTER Temperature 36.1 C (97 F) 09/24/2024 8:22 AM STAFF FORESTER Respiratory Rate 18 09/03/2024 7:41 AM CDT Oxygen Saturation 97% 09/24/2024 8:22 AM STAFF FORESTER Inhaled Oxygen Concentration - - Weight 88.7 kg (195 lb 9.6 oz) 09/24/2024 8:22 A M STAFF FORESTER Height 167.6 cm (5' 6) 09/24/2024 8:22 AM STAFF FORESTER Body Mass Index 31.57 09/24/2024 8:22 AM STAFF FORESTER Plan of Treatment Health Maintenance Due Date [...] - 18.7 mg/dL 09/03/2024 5:26 AM CDT [facility] Creatinine 0.66 0.57 - 1.11 mg/dL 09/03/2024 5:26 AM CDT [facility] eGFR by CKD-EPI >90 >=90 mL/min/1.7 3 m2 09/03/2024 5:26 AM CDT [facility] Blood BLOOD SPECIMEN / Unknown Venipuncture / Unknown 09/03/2024 4:41 AM CDT 09/03/2024 4:47 AM CDT Cameron Clifton MD LAB - CHEMISTRY ORDERABLES F inal Result Performing Organization Address [facility] Co de Phone Number [facility] [address] [place] [address] * HIV-1 HIV-2 ANTIBODY + HIV P24 AG PANEL (08/08/2022 6:18 PM CDT) HIV1/2 Ab + P24 Ag Non Reactive Non Reactive 08/08/2022 7:15 PM CDT [facility] Blood BLOOD SPECIMEN / Unknown Venipuncture / Unknown 08/08/2022 6:18 PM CDT 08/08/2022 6:25 PM CDT Narrative [facility] - 08/08/2022 7:15 PM CDT No Laboratory evidence of HIV infection. Liana Hui MD LAB - CHEMISTRY ORDERABLES Fin al Result Performing Organization Address [facility] Co de Phone Number [facility] [address] [place] [address] from Last 3 Months or Most Recently Relevant to Health Maintenance Insurance [facility] MEDICAID [employer] [place] Advance [...] 5:01 AM 09/12/2020 7:41 PM Care Teams Insulation Sprayer Relationship Specialty Start Date End Date Justin Antonio MD [address] [place] [address] PCP - General 10/15/18
--- NOTE | 2025-04-19 08:50 | P.CONGI_ITS ---
Assessment and Plan Assessment and plan (1) Swallowing difficulty: Qualifiers: Dysphagia type: esophageal phase Qualified Code(s): R13.19 - Other dysphagia Code(s): R13.10 - Dysphagia, unspecified Status: Inactive (2) Odynophagia: Code(s): R13.10 - Dysphagia, unspecified Status: Acute (3) Epigastric abdominal pain: Code(s): R10.13 - Epigastric pain Status: Acute (4) History of gastric ulcer: Code(s): Z87.11 - Personal history of peptic ulcer disease Status: Acute (5) Dysphonia: Code(s): R49.0 - Dysphonia Status: Acute (6) Nausea: Code(s): R11.0 - Nausea Status: Acute (7) Appetite loss: Code(s): R63.0 - Anorexia Status: Acute (8) Weight loss: Code(s): R63.4 - Abnormal weight loss Status: Acute (9) Chronic diarrhea: Code(s): K52.9 - Noninfective gastroenteritis and colitis, unspecified Status: Acute (10) Hypokalemia: Code(s): E87.6 - Hypokalemia Status: Acute (11) GERD (gastroesophageal reflux disease): Qualifiers: Esophagitis presence: without esophagitis Qualified Code(s): K21.9 - Gastro-esophageal reflux disease without esophagitis Code(s): K21.9 - Gastro-esophageal reflux disease without esophagitis Status: Inactive Plan 1. Dysphagia/ epigastric pain/odynophagia/dysphonia/weight loss/nausea/history of gastric bypass and multiple postop complications requiring multiple surgeries: Last EGD 10/03/2023 showed evidence of previous Francesca-en-Y anastomosis MARIE test negative. Patient has had a total of 12 abdominal surgeries since her bypass in 2012 including multiple bile leaks and perforated gastric ulcer. She is on no NSAIDs, aspirin, or anticoagulants. Status post cholecystectomy. CT 03/18/2025 showed no acute findings. Labs today show normal BMP, CBC, LFTs, and lipase except potassium at 3.2. At home patient is on famotidine 40 mg daily, Carafate elix 4 times daily and omeprazole 40 mg b.i.d. but having persistent symptoms. Her symptoms are chronic in nature but have become more severe and problematic over the past 6 months. She complains of epigastric pain and odynophagia that she rates an 8-9 at a 10. She is having dysphagia with solids, liquids, and pills. Admits to frequent nausea without vomiting. Admits to decreased appetite, early satiety, and a 30 lb unintentional weight loss over past 4 months. DDX: Esophagitis versus acid and nonacid reflux versus motility disorder versus obstructive process versus esophageal ring or stricture versus neoplasm. * EGD ordered * Keep patient NPO * Patient will need more aggressive pain management as she is still having 8- 9/10 pain after 0.5 mg of hydromorphone * IV PPI BID * Continue Carafate elixir after EGD * Continue supportive care * Based on EGD findings will consider performing previously ordered small- bowel follow-through 2. Chronic diarrhea: Last colonoscopy performed at age 22. Patient admits to chronic diarrhea since her gastric bypass. Status post cholecystectomy which may also be a contributing factor. She complains of mostly postprandial diarrhea but even when she skips meals she has on average 4 liquid bowel movements daily. Bile acid diarrhea versus malabsorption versus pancreatic insufficiency. * Start cholestyramine daily * Can discuss colonoscopy as outpatient once acute upper GI issues have been addressed 3. Hypokalemia: Labs normal except potassium at 3.2. * Primary care team to continue monitoring and correct Thank you very much for allowing me to share in the care of this very nice patient. This report may have been done utilizing a voice recognition system. Attempts have been made to correct errors. However, there may be uncorrected grammatical, spelling, and recognition errors present. GI Consult Note Consult date/time: 04/19/25 08:50 Reason for consult: Dysphagia HPI: Niyah Shay is a 45 year old female with significant GI history including gastric bypass with complications of bile leak (3 surgeries) s/p revision in 2016 (all completed in [place]), perforated gastric ulcer, gastric volvulus, fibromyalgia, uterine fibroids, anxiety, depression, myomectomy, and laparoscopic cholecystectomy. Patient presented to the ER today with complaints of epigastric pain. GI has been consulted for dysphagia and multiple other GI complaints. Patient was seen with her mother Citlalli at her bedside throughout the entire visit. Patient was last seen in the office by ALMA Koch 04/14/2025 at which time a small bowel follow-through an EGD was ordered. Patient was also started on Carafate elixir, advised to continue famotidine and Protonix was changed to omeprazole 40 mg b.i.d. patient states she presented to the emergency room as her epigastric pain and odynophagia became so severe that she could ?no longer take it?. She complains of epigastric pain and pain with swallowing that she rates an 8-9/10 after receiving 0.5 of hydromorphone. She complains of near constant nausea but no vomiting. Admits to odynophagia and dysphagia with solid foods, liquids and pills. She admits to decreased appetite, early satiety, and a 30 lb unintentional weight loss over the past 4 months. She has chronic postprandial diarrhea but states that even if she does not eat she will have 4 liquid bowel movements daily that are acidic and burning in nature. Following her last office visit she was started on Carafate and b.i.d. omeprazole which she states did nothing to help with her symptoms. She denies abdominal bloating, regurgitation, constipation, hematochezia, or melena. She denies any alcohol or marijuana use but uses electronic cigarettes. She denies any NSAID, aspirin, or anticoagulant use. Family history positive for maternal grandmother diagnosed with colon cancer in her 80s. ENDOSCOPY HISTORY: EGD: 10/03/2023 (Dr. Ballesteros) for epigastric abdominal pain Evidence of previous Francesca-en-Y anastomosis, MARIE test negative LABS AND STOOL STUDIES: Labs 04/19/2025: Sodium 138, potassium 3.2, BUN 5, creatinine 0.71, GFR >60, calcium 9.4 WBC 6, Hgb 14, Hct 41, MCV 93, platelets 307, INR 1.1 Total bilirubin 0.7, AST 26, ALT 20, Alkaline Phos 68, albumin 4.2, lipase 50 Labs 03/18/2025: Na 135, K 3.5, BUN 6, creatinine 0.9 WBC 9.9, HGB 15, HCT 47, MCV 95, PLATELETS 340 Total bilirubin 0.6, AST 27, ALT 24, Alkaline Phosphate 76, Lipase 74 IMAGING: Chest Xray 04/19/2025: Normal CT angiogram chest, CT abdomen/pelvis with contrast, CT soft tissue neck with contrast 03/18/2025: Impression: No pulmonary embolism. Mild dependent bibasilar atelectasis in both lungs with chronic eventration and elevation of left hemidiaphragm. No acute intra- abdominal/pelvic process. Unremarkable CT of the neck. Postoperative change of prior Francesca-en-Y gastric bypass procedure with jejunojejunal anastomosis in the right lower quadrant. Unchanged mild intra and extra hepatic biliary ductal dilation likely related to prior cholecystectomy. Review of Systems 2 Constitutional: Constitutional: Reports as per HPI ENT: Reports as per HPI Cardiovascular: Cardiovascular: Reports as per HPI, Denies chest pain, Denies lightheadedness and Denies dyspnea Respiratory: Respiratory: Denies chest congestion, Denies cough and Denies dyspnea Gastrointestinal: Gastrointestinal: Reports as per HPI Musculoskeletal: Musculoskeletal: Reports as per HPI Integumentary/Breasts: Skin/Breast: Reports as per HPI Psychiatric: Psychiatric: Reports as per HPI Endocrine: Endocrine: Reports no additional endocrine complaints Hematologic/Lymphatic: Hematologic/Lymphatic: Reports no additional hematologic/lymphatic complaints [facility] Past Medical History Medical History (Updated 04/19/25 @ 09:44 by Josselin Huynh, QUALITY ASSURANCE ASSOCIATE) Swallowing difficulty Perforated ulcer stomach 2020 Fibromyalgia Fibroids Anxiety Depression Surgical History Surgical History (Updated 04/14/25 @ 14:54 by Shantel Koch APRN) S/P myomectomy Abdominal 2013 Hx laparoscopic cholecystectomy History of gastric bypass complications of bile leak had revision in 2016 Social History Social History Smoking packs per day: 0.5 Smoking cigarettes per day: 10.0 Years smoked: 6 Smoking pack-years: 3.00 Smoking status: Current every day smoker Tobacco type: cigarettes and e-cigarettes/vaping Second hand tobacco smoke exposure: No Additional smoking assessment comments: STARTED VAPING IN 2019 Alcohol intake: never Drinks per week: 2 Alcohol use details: beer or wine; occassionally Substance use: former Substance use type: does not use Living arrangements: with family Additional living arrangements comments: significant other Gender identity (if verbalized by the patient): Female Spiritual care concerns: No Meds Home Medications and Allergies Home Medications ?Medication ?Instructions ?Recorded ?Confirmed ?Type acetaminophen 325 mg capsule 650 mg PO Q4-6H PRN Pain 09/06/21 10/03/23 History (Tylenol) medroxyprogesterone 150 mg/mL 150 mg IM [id number] 09/06/21 10/03/23 History intramuscular syringe bupropion HCl 200 mg tablet,12 hr 200 mg PO BID 09/26/23 10/03/23 History sustained-release clonazepam 2 mg tablet 2 mg PO BID 09/26/23 10/03/23 History cyanocobalamin (vitamin B-12) 1,000 mcg IM Q1M MONTHLY 09/26/23 10/03/23 History 1,000 mcg/mL injection solution ergocalciferol (vitamin D2) 1,250 50,000 unit PO WEEKLY 09/26/23 10/03/23 History mcg (50,000 unit) capsule ferrous sulfate 325 mg (65 mg 325 mg PO BID 09/26/23 10/03/23 History iron) tablet gabapentin 600 mg tablet 600 mg PO TID 09/26/23 10/03/23 History ondansetron 4 mg disintegrating 4 mg PO Q4-6H PRN Nausea And 09/26/23 10/03/23 History tablet Vomiting rizatriptan 10 mg disintegrating 10 mg PO DAILY PRN Headache 09/26/23 10/03/23 History tablet tizanidine 4 mg tablet 4 mg PO TID PRN FIBROMYALGIA 09/26/23 10/03/23 History trazodone 50 mg tablet 50 - 150 mg PO HS PRN Insomnia 09/26/23 10/03/23 History hydrocodone 5 mg-acetaminophen 325 1 tablet PO Q12H PRN pain #14 tabs 08/26/24 Rx mg tablet ondansetron 4 mg disintegrating 4 mg PO Q8H PRN nausea and 08/26/24 Rx tablet vomiting #14 tabs simethicone 125 mg tablet 125 mg PO DAILY PRN abdominal 03/18/25 Rx (Bicarsim Forte) distention #14 tabs famotidine 40 mg tablet 40 mg PO DAILY 04/14/25 History omeprazole 40 mg capsule,delayed 40 mg PO BID #60 caps 04/14/25 04/14/25 Rx release pantoprazole 40 mg granules 40 mg PO DAILY 04/14/25 History delayed-release for susp in packet sucralfate 100 mg/mL oral 1 g (10 mL) PO ACHS #1,000 mL 04/14/25 04/14/25 Rx suspension (Carafate) Allergies Allergy/AdvReac Type Severity Reaction Status Date / Time Penicillins Allergy Severe Swelling Verified 04/19/25 06:52 of Lip/Tongue/Throat Sulfa (Sulfonamide Allergy Intermediate Hives Verified 04/19/25 06:52 Antibiotics) ciprofloxacin Allergy Mild Hives Verified 04/19/25 06:52 ubrogepant (From Ubrelvy) Allergy Unknown Mouth and Verified 04/19/25 06:52 throat swelling red (food color) AdvReac Intermediate Nausea and Verified 04/19/25 06:52 Vomiting Vital Signs Vital Signs - 24 hr 04/19/25 06:54 04/19/25 07:46 Temperature 98.1 F Pulse Rate 114 H Respiratory Rate 18 Blood Pressure 127/90 Pulse Oximetry 99 100 Oxygen Delivery Room Air Room Air Exam 2 Const: General: cooperative, healthy appearing, no acute distress, well developed and uncomfortable Orientation/consciousness: oriented to person, oriented to place, oriented to time and patient oriented x3 HENMT: Head: normal to inspection, normocephalic and atraumatic Mouth: Yes Normal oral and palatal mucosa present and Yes moist mucous membranes Eyes: General: appearance normal, both eyes and all related structures C onjunctivae: conjunctivae normal Sclera: sclerae normal Pupils: Equal, round and reactive pupils present Neck: Neck: normal visual inspection Chest: Chest palpation & inspection: normal inspection of the chest Resp: Effort & Inspection: normal respiratory effort and able to speak in complete sentences Auscultation: clear to auscultation bilaterally Cardio: Jugular venous distension: no JVD Rate: regular rate Rhythm: r egular rhythm Heart sounds: S1 normal heart sound present and S2 normal heart sound present GI: Inspection: normal to inspection GI Palp: Yes Soft to palpation and Yes No hepatosplenomegaly present Auscultation: normal bowel sounds Rectal Exam: deferred Skin: General skin exam: normal color and no rashes or lesions noted Neuro: General: oriented to person, oriented to place, oriented to time and patient oriented x3 Cranial nerves: Yes Equal, round and reactive pupils present Speech: normal speech Extrem: General: normal to inspection and no clubbing, cyanosis or edema Psych: Appearance: grossly normal and well kempt Affect: normal affect Results Labs 04/19/25 07:42 04/19/25 07:42 Labs: Short CBC 04/19/25 Range/Units 07:42 WBC 6.2 (4.5-10.0) K/mm3 Hgb 13.5 (12.0-15.0) g/dL Hct 40.6 (37.0-47.0) % Plt Count 307 (150-375) k/mm3 BMP 04/19/25 07:42 Sodium 138 Potassium 3.2 L Chloride 108 H Carbon Dioxide 21 L BUN 5 L Creatinine 0.71 Glucose 95 Calcium 9.4 Cardiac Enzymes 04/19/25 Range/Units 07:42 Troponin I < 0.012 (0.000-0.034) ng/mL Liver Function 04/19/25 Range/Units 07:42 Total Bilirubin 0.7 (0.2-1.3) mg/dL AST 26 (14-36) U/L ALT 20 (6-35) U/L Alkaline Phosphatase 68 (38-126) U/L Albumin 4.2 (3.5-5.1) g/dL
--- NOTE | 2025-04-19 08:51 | ED.CHESTPAIN ---
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 Related Data Home Medications ?Medication ?Instructions ?Recorded ?Confirmed ?Last Taken ?Type acetaminophen 325 mg capsule 650 mg PO Q4-6H PRN Pain 09/06/21 04/19/25 Unknown History (Tylenol) medroxyprogesterone 150 mg/mL 150 mg IM [id number] 09/06/21 04/19/25 Unknown History intramuscular syringe bupropion HCl 200 mg tablet,12 hr 200 mg PO BID 09/26/23 04/19/25 04/19/25 History sustained-release clonazepam 2 mg tablet 2 mg PO BID 09/26/23 04/19/25 04/19/25 History cyanocobalamin (vitamin B-12) 1,000 mcg IM Q1M MONTHLY 09/26/23 04/19/25 02/15/25 History 1,000 mcg/mL injection solution ergocalciferol (vitamin D2) 1,250 50,000 unit PO WEEKLY 09/26/23 04/19/25 04/18/25 History mcg (50,000 unit) capsule ferrous sulfate 325 mg (65 mg 325 mg PO BID 09/26/23 04/19/25 03/19/25 History iron) tablet gabapentin 600 mg tablet 600 mg PO TID 09/26/23 04/19/25 04/19/25 History ondansetron 4 mg disintegrating 4 mg PO Q4-6H PRN Nausea And 09/26/23 04/19/25 Unknown History tablet Vomiting rizatriptan 10 mg disintegrating 10 mg PO DAILY PRN Headache 09/26/23 04/19/25 Unknown History tablet tizanidine 4 mg tablet 4 mg PO TID PRN FIBROMYALGIA 09/26/23 04/19/25 Unknown History trazodone 50 mg tablet 50 - 150 mg PO HS PRN Insomnia 09/26/23 04/19/25 Unknown History oxycodone-acetaminophen 7.5 mg-325 1 tablet PO TID PRN pain 04/19/25 04/19/25 Unknown History mg tablet quetiapine 25 mg tablet 25 mg PO HS PRN insomnia 04/19/25 04/19/25 Unknown History Allergies Allergy/AdvReac Type Severity Reaction Status Date / Time Penicillins Allergy Severe Swelling Verified 04/19/25 10:18 of Lip/Tongue/Throat Sulfa (Sulfonamide Allergy Intermediate Hives Verified 04/19/25 10:18 Antibiotics) ciprofloxacin Allergy Mild Hives Verified 04/19/25 10:18 ubrogepant (From Ubrelvy) Allergy Unknown Mouth and Verified 04/19/25 10:18 throat swelling red (food color) AdvReac Intermediate Nausea and Verified 04/19/25 10:18 Vomiting PMFSH Past Medical History Medical History (Updated 04/19/25 @ 10:50 by Vidya Isaac MD) Swallowing difficulty Perforated ulcer stomach 2020 Fibromyalgia Fibroids Anxiety Depression Surgical History Surgical History (Updated 04/14/25 @ 14:54 by Shantel Koch APRN) S/P myomectomy Abdominal 2012 Hx laparoscopic cholecystectomy History of gastric bypass complications of bile leak had revision in 2015 Social History Social History Smoking packs per day: 0.5 Smoking cigarettes per day: 10.0 Years smoked: 6 Smoking pack-years: 3.00 Smoking status: Current every day smoker Tobacco type: cigarettes and e-cigarettes/vaping Second hand tobacco smoke exposure: No Additional smoking assessment comments: STARTED VAPING IN 2019 Alcohol intake: never Drinks per week: 2 Alcohol use details: beer or wine; occassionally Substance use: former Substance use type: does not use Living arrangements: with family Additional living arrangements comments: significant other Gender identity (if verbalized by the patient): Female Spiritual care concerns: No Course Vital Signs Vital signs: Vital Signs Temperature 98.1 F 04/19/25 06:54 Pulse Rate 114 H 04/19/25 06:54 Respiratory Rate 18 04/19/25 06:54 Blood Pressure 127/90 04/19/25 06:54 Pulse Oximetry 99 04/19/25 06:54 Oxygen Delivery Room Air 04/19/25 06:54 Temperature 97 F L 04/19/25 10:20 Pulse Rate 86 04/19/25 10:20 Respiratory Rate 18 04/19/25 10:20 Blood Pressure 141/94 H 04/19/25 10:20 Pulse Oximetry 100 04/19/25 10:20 Oxygen Delivery Room Air 04/19/25 10:20 MDM - Chest Pain MDM Narrative Medical decision making narrative: 1) Differential diagnosis: Esophageal spasm, ACS, esophagitis 2) Comorbidities: Fibromyalgia, gastric bypass, gastritis, perforated ulcer 3) External notes reviewed: Pulp Screen Operator notes 4) History sources independently obtained from: Mother at bedside 5) Discussion of management with: GI 6) Independent interpretation of: EKG showing sinus rhythm rate 94, KS 118, QRS 89, QTC 442, some slight ST depressions in inferior leads; I did compare this to EKG from 1 month ago and this is unchanged Chest x-ray showing elevated left diaphragm but no obvious signs of free air 7) Diagnostic tests or therapies considered but not ordered: 8) Social determinants of health: 9) Shared decision making: Case discussed with GI, who recommends admission for possibly endoscopy tomorrow. Patient agreeable to the plan. IV Protonix, Pepcid, Dilaudid given for her symptoms, discussed with hospitalist for admission Lab Data 04/19/25 07:42 04/19/25 07:42 Labs: Lab Results 04/19/25 Range/Units 07:42 WBC 6.2 (4.5-10.0) K/mm3 RBC 4.37 (4.2-5.4) M/mm3 Hgb 13.5 (12.0-15.0) g/dL Hct 40.6 (37.0-47.0) % MCV 92.9 (80-100) fl MCH 30.9 (26-34) pg MCHC 33.3 (32-36) g/dl RDW 12.6 (11.5-14.5) % Plt Count 307 (150-375) k/mm3 MPV 9.6 (7.4-10.4) fl Immature Gran % (Auto) 0.2 (0-0.5) % Neut % (Auto) 44.1 L (45.5-73.1) % Lymph % (Auto) 47.0 H (18.3-44.2) % [place] % (Auto) 6.6 (2.6-8.5) % Eos % (Auto) 1.3 (0-4.4) % Baso % (Auto) 0.8 (0.2-1.2) % Lymph # (Auto) 2.92 (0.9-3.2) K/mm3 [place] # (Auto) 0.4 (0.1-0.6) K/mm3 Eos # (Auto) 0.1 (0-0.3) K/mm3 Baso # (Auto) 0.1 (0.0-0.1) K/mm3 Abs Immat Gran (auto) 0.01 (0.00-0.031) K/mm3 Absolute Neuts (auto) 2.7 (1.3-6.7) K/mm3 Absolute Nucleated RBC 0.000 (0.0-0.012) K/mm3 Nucleated RBC % 0.0 (0.0-0.2) % Sodium 138 (137-145) mmol/L Potassium 3.2 L (3.4-5.0) mmol/L Chloride 108 H (98-107) mmol/L Carbon Dioxide 21 L (22-30) mmol/L Anion Gap 9 (4-12) mmol/L BUN 5 L (7-17) mg/dL Creatinine 0.71 (0.7-1.0) mg/dL Estim Creat Clear Calc 94 ml/min Estimated GFR > 60 (59 - ) Glucose 95 (65-110) mg/dL Calcium 9.4 (8.4-10.2) mg/dL Total Bilirubin 0.7 (0.2-1.3) mg/dL AST 26 (14-36) U/L ALT 20 (6-35) U/L Alkaline Phosphatase 68 (38-126) U/L Troponin I < 0.012 (0.000-0.034) ng/mL Total Protein 7.0 (6.3-8.2) g/dL Albumin 4.2 (3.5-5.1) g/dL Lipase 50 (23-300) U/L Discharge Plan Discharge Clinical Impression: Epigastric abdominal pain, Dysphagia Patient Disposition: Still a Patient Condition: Stable
[2025-04-19] MEDS: HYDROmorphone HCL INJ (*CRX) 2 MG/ML VIAL 0.5 MG IV PUSH ×2 (08:54→13:47)
--- NOTE | 2025-04-19 08:58 | PC.NURSE ---
patient states that she is unable to drink her potassium drink because it hurts too much to drink anything, educated patient that the pepcid, protonix, and dilaudid could improve comfort to allow for drinking the potassium. pt asked what milligram of dilaudid she was getting, educated that it was 0.5, patient stated That's not going to do a thing for the pain but I guess we'll see
--- NOTE | 2025-04-19 10:11 | P.PNAN_ITS ---
Anes - Initial Pre Proc Eval Procedure: Operation Date: 04/19/25 11:15 Proposed Procedures p Esophagogastroduodenoscopy - Amado Marie MD Date/Time: 04/19/25 10:11 Surgeon: Surya Harding MD Pre Op Diagnosis: ?esophageal spasm? Patient Data Age: 45 Gender: F Height: 1.68 m Weight: 80.9 kg Last Vital Signs Temp 36.7 C 04/19/25 06:54 Pulse 87 04/19/25 09:57 Resp 11 L 04/19/25 09:57 BP 125/97 H 04/19/25 09:57 Pulse Ox 95 04/19/25 09:57 O2 Del Method Room Air 04/19/25 07:46 Allergies Allergy/AdvReac Type Severity Reaction Status Date / Time Penicillins Allergy Severe Swelling Verified 04/19/25 10:18 of Lip/Tongue/Throat Sulfa (Sulfonamide Allergy Intermediate Hives Verified 04/19/25 10:18 Antibiotics) ciprofloxacin Allergy Mild Hives Verified 04/19/25 10:18 ubrogepant (From Ubrelvy) Allergy Unknown Mouth and Verified 04/19/25 10:18 throat swelling red (food color) AdvReac Intermediate Nausea and Verified 04/19/25 10:18 Vomiting Home Medications ?Medication ?Instructions ?Recorded ?Confirmed ?Type acetaminophen 325 mg capsule 650 mg PO Q4-6H PRN Pain 09/06/21 10/03/23 History (Tylenol) medroxyprogesterone 150 mg/mL 150 mg IM [id number] 09/06/21 10/03/23 History intramuscular syringe bupropion HCl 200 mg tablet,12 hr 200 mg PO BID 09/26/23 10/03/23 History sustained-release clonazepam 2 mg tablet 2 mg PO BID 09/26/23 10/03/23 History cyanocobalamin (vitamin B-12) 1,000 mcg IM Q1M MONTHLY 09/26/23 10/03/23 History 1,000 mcg/mL injection solution ergocalciferol (vitamin D2) 1,250 50,000 unit PO WEEKLY 09/26/23 10/03/23 History mcg (50,000 unit) capsule ferrous sulfate 325 mg (65 mg 325 mg PO BID 09/26/23 10/03/23 History iron) tablet gabapentin 600 mg tablet 600 mg PO TID 09/26/23 10/03/23 History ondansetron 4 mg disintegrating 4 mg PO Q4-6H PRN Nausea And 09/26/23 10/03/23 History tablet Vomiting rizatriptan 10 mg disintegrating 10 mg PO DAILY PRN Headache 09/26/23 10/03/23 History tablet tizanidine 4 mg tablet 4 mg PO TID PRN FIBROMYALGIA 09/26/23 10/03/23 History trazodone 50 mg tablet 50 - 150 mg PO HS PRN Insomnia 09/26/23 10/03/23 History ondansetron 4 mg disintegrating 4 mg PO Q8H PRN nausea and 08/26/24 Rx tablet vomiting #14 tabs omeprazole 40 mg capsule,delayed 40 mg PO BID #60 caps 04/14/25 04/14/25 Rx release sucralfate 100 mg/mL oral 1 g (10 mL) PO ACHS #1,000 mL 04/14/25 04/14/25 Rx suspension (Carafate) oxycodone-acetaminophen 7.5 mg-325 1 tablet PO TID PRN pain 04/19/25 04/19/25 History mg tablet quetiapine 25 mg tablet 25 mg PO HS PRN insomnia 04/19/25 04/19/25 History Laboratory Tests 04/19/25 07:42 WBC 6.2 K/mm3 (4.5-10.0) RBC 4.37 M/mm3 (4.2-5.4) Hgb 13.5 g/dL (12.0-15.0) Hct 40.6 % (37.0-47.0) MCV 92.9 fl (80-100) MCH 30.9 pg (26-34) MCHC 33.3 g/dl (32-36) RDW 12.6 % (11.5-14.5) Plt Count 307 k/mm3 (150-375) MPV 9.6 fl (7.4-10.4) Immature Gran % (Auto) 0.2 % (0-0.5) Neut % (Auto) 44.1 L % (45.5-73.1) Lymph % (Auto) 47.0 H % (18.3-44.2) Mathews % (Auto) 6.6 % (2.6-8.5) Eos % (Auto) 1.3 % (0-4.4) Baso % (Auto) 0.8 % (0.2-1.2) Lymph # (Auto) 2.92 K/mm3 (0.9-3.2) Mathews # (Auto) 0.4 K/mm3 (0.1-0.6) Eos # (Auto) 0.1 K/mm3 (0-0.3) Baso # (Auto) 0.1 K/mm3 (0.0-0.1) Abs Immat Gran (auto) 0.01 K/mm3 (0.00-0.031) Absolute Neuts (auto) 2.7 K/mm3 (1.3-6.7) Absolute Nucleated RBC 0.000 K/mm3 (0.0-0.012) Nucleated RBC % 0.0 % (0.0-0.2) Sodium 138 mmol/L (137-145) Potassium 3.2 L mmol/L (3.4-5.0) Chloride 108 H mmol/L (98-107) Carbon Dioxide 21 L mmol/L (22-30) Anion Gap 9 mmol/L (4-12) BUN 5 L mg/dL (7-17) Creatinine 0.71 mg/dL (0.7-1.0) Estim Creat Clear Calc 94 ml/min Estimated GFR > 60 (59 - ) Glucose 95 mg/dL (65-110) Calcium 9.4 mg/dL (8.4-10.2) Total Bilirubin 0.7 mg/dL (0.2-1.3) AST 26 U/L (14-36) ALT 20 U/L (6-35) Alkaline Phosphatase 68 U/L (38-126) Troponin I < 0.012 ng/mL (0.000-0.034) Total Protein 7.0 g/dL (6.3-8.2) Albumin 4.2 g/dL (3.5-5.1) Lipase 50 U/L (23-300) Patient hx anesthesia problems: none Family hx anesthesia problems: none Results Review: All pre-operative results and documents have been reviewed as part of the pre- operative evaluation. [facility] Past Medical History Medical History (Updated 04/19/25 @ 09:44 by Josselin Huynh APRN) Swallowing difficulty Perforated ulcer stomach 2020 Fibromyalgia Fibroids Anxiety Depression Surgical History Surgical History (Updated 04/14/25 @ 14:54 by Shantel Koch APRN) S/P myomectomy Abdominal 2013 Hx laparoscopic cholecystectomy History of gastric bypass complications of bile leak had revision in 2016 Social History Social History Smoking packs per day: 0.5 Smoking cigarettes per day: 10.0 Years smoked: 6 Smoking pack-years: 3.00 Smoking status: Current every day smoker Tobacco type: cigarettes and e-cigarettes/vaping Second hand tobacco smoke exposure: No Additional smoking assessment comments: STARTED VAPING IN 2019 Alcohol intake: never Drinks per week: 2 Alcohol use details: beer or wine; occassionally Substance use: former Substance use type: does not use Living arrangements: with family Additional living arrangements comments: significant other Gender identity (if verbalized by the patient): Female Spiritual care concerns: No Anes - Eval Final PreProcedure Day of Procedure 04/19/25 10:11 Patient weight: overweight Heart: regular rate and rhythm Lungs: clear to auscultation Airway: Mallampati scale class II Neurological: alert and oriented Last oral intake: >/= 8 hours ASA classification: III Emergent: no Anesthetic plan: proceed Anesthesia type and monitoring: general GIVS and standard monitoring Results Review: All pre-operative results and documents have been reviewed as part of the pre- operative evaluation. Informed Consent: The patient's anesthetic plan and its attendant risks and benefits were discussed with the patient/family/POA. Questions were solicited and answers provided to the satisfaction of the patient/family/POA.
--- NOTE | 2025-04-19 10:14 | PC.NURSE ---
0958 - report given to Alexandra in GI lab 1011- Report given to Nichole SPRAGUE on 3rd med surg
[2025-04-19] MEDS: LACTATED RINGERS 1,000 ML 150 ML IV CONT (10:27)
[2025-04-19 10:35] LABS: BEDSIDEPREGUCG Negative (Negative)
--- NOTE | 2025-04-19 10:59 | S_PTH ---
PATIENT: Niyah Shay LOC: [id number] U#:[id number] AGE/SX: 45/F ROOM: 305 RE04/19/[address]: Surya Harding MD : [id number] BED: 02 DIS: 04/20/2025 SPEC #: [id number] RECD: 04/19/25 13:12 STATUS: SY WILSON #: [id number] ENRIQUE: 04/19/25 10:[address]: Amado Marie DEPT: [facility] Surgical RECD BY: Mary Jo Garay ENTERED: 04/19/25 13:12 SP TYPE: Surgical OTHR DR: MD David Kaur MD Philip E. Siefken, MD Tissues: A - Esophageal Biopsy B - Gastric Biopsy Procedures: Hematoxylin and Eosin Stain Gross and Microscopic Level 4
--- NOTE | 2025-04-19 12:48 | PM.IMHP ---
H&P: HPI History of Present Illness Date/Time: 04/19/25 12:48 Chief Complaint: Pain with Swallowing Narrative: 45 y/o F with PMH of perforated stomach ulcer (2019), 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 The patient presents here with worsening painful swallowing and epigastric pain. She was initially evaluated by GI on 04/14. At this appointment she reported this is been ongoing for the past 6 months pain with swallowing, food getting stuck, and epigastric pain that has been progressively worsening. Pain has caused difficulty with eating. She also reports associated sensation of food becoming stuck in her esophagus, 30 lb of weight loss over the last 4 months, nausea with p.o. intake, chronic diarrhea (has been ongoing since her initial gastric surgery), and voice changes described as hoarseness. She has a significant gastric surgical history including gastric bypass surgery in 2012 with significant complications. She reports during her initial surgery part of her stomach was nicked causing a bile leakage requiring 3 separate surgeries during that hospital admission. She reports approximately 12 total abdominal surgeries also including a cholecystectomy, gastric bypass revision, perforated gastric ulcer repair, and most recent surgery in August of 2024 was done at [facility] to untangle her bowels and adhesiolysis. She also has a history of alcohol abuse, has been sober for 1 year and half. She had an outpatient EGD ordered and was started on Carafate elixir, and from Famotidine and Protonix changed to omeprazole 40 mg b.i.d. She now returns today as the pain has become too severe. She continues to report constant nausea without vomiting. Epigastric pain and dysphagia occurring with solid foods, liquids, pills, water. She has a family history of colon cancer, grandmother, no further GI cancers noted. Initial VS at presentation: 98.1? F, HR 114, R 18, 127/90, and 99% on RA. ED workup showed: No leukocytosis, no anemia, potassium 3.2, renal function within normal limits, lipase within normal limits, hCG negative. CXR showed no acute cardiopulmonary disease. Review of Systems Review of Systems: All systems reviewed & are unremarkable except as noted in HPI and below PMFSH Past Medical History Medical History Swallowing difficulty Perforated ulcer stomach 2019 Fibromyalgia Fibroids Anxiety Depression Surgical History Surgical History S/P myomectomy Abdominal 2013 Hx laparoscopic cholecystectomy History of gastric bypass complications of bile leak had revision in 2016 Social History Social History Smoking packs per day: 0.5 Smoking cigarettes per day: 10.0 Years smoked: 6 Smoking pack-years: 3.00 Smoking status: Current every day smoker Tobacco type: e-cigarettes/vaping Second hand tobacco smoke exposure: No Additional smoking assessment comments: STARTED VAPING IN 2019 Alcohol intake: never Drinks per week: 2 Alcohol use details: beer or wine; occassionally Substance use: former Substance use type: does not use Do You Feel Safe in your Home?: Yes Lack of Transportation: No Lack of Food: Never True Current Housing: I Have Housing Concerned About Future Housing: No Difficulty Paying Gas/Electric Bills: No Difficulty Paying for Meds: No Currently Unemployed: No Education: High School Diploma/GED Difficulty w/ Childcare or Family Care: No Living arrangements: with family Additional living arrangements comments: significant other Gender identity (if verbalized by the patient): Female Spiritual care concerns: No Meds Home Medications and Allergies Home Medications ?Medication ?Instructions ?Recorded ?Confirmed ?Type acetaminophen 325 mg capsule 650 mg PO Q4-6H PRN Pain 09/06/21 04/19/25 History (Tylenol) medroxyprogesterone 150 mg/mL 150 mg IM [id number] 09/06/21 04/19/25 History intramuscular syringe bupropion HCl 200 mg tablet,12 hr 200 mg PO BID 09/26/23 04/19/25 History sustained-release clonazepam 2 mg tablet 2 mg PO BID 09/26/23 04/19/25 History cyanocobalamin (vitamin B-12) 1,000 mcg IM Q1M MONTHLY 09/26/23 04/19/25 History 1,000 mcg/mL injection solution ergocalciferol (vitamin D2) 1,250 50,000 unit PO WEEKLY 09/26/23 04/19/25 History mcg (50,000 unit) capsule ferrous sulfate 325 mg (65 mg 325 mg PO BID 09/26/23 04/19/25 History iron) tablet gabapentin 600 mg tablet 600 mg PO TID 09/26/23 04/19/25 History ondansetron 4 mg disintegrating 4 mg PO Q4-6H PRN Nausea And 09/26/23 04/19/25 History tablet Vomiting rizatriptan 10 mg disintegrating 10 mg PO DAILY PRN Headache 09/26/23 04/19/25 History tablet tizanidine 4 mg tablet 4 mg PO TID PRN FIBROMYALGIA 09/26/23 04/19/25 History trazodone 50 mg tablet 50 - 150 mg PO HS PRN Insomnia 09/26/23 04/19/25 History ondansetron 4 mg disintegrating 4 mg PO Q8H PRN nausea and 08/26/24 04/19/25 Rx tablet vomiting #14 tabs omeprazole 40 mg capsule,delayed 40 mg PO BID #60 caps 04/14/25 04/19/25 Rx release sucralfate 100 mg/mL oral 1 g (10 mL) PO ACHS #1,000 mL 04/14/25 04/19/25 Rx suspension (Carafate) oxycodone-acetaminophen 7.5 mg-325 1 tablet PO TID PRN pain 04/19/25 04/19/25 History mg tablet quetiapine 25 mg tablet 25 mg PO HS PRN insomnia 04/19/25 04/19/25 History Allergies Allergy/AdvReac Type Severity Reaction Status Date / Time Penicillins Allergy Severe Swelling Verified 04/19/25 10:18 of Lip/Tongue/Throat Sulfa (Sulfonamide Allergy Intermediate Hives Verified 04/19/25 10:18 Antibiotics) ciprofloxacin Allergy Mild Hives Verified 04/19/25 10:18 ubrogepant (From Ubrelvy) Allergy Unknown Mouth and Verified 04/19/25 10:18 throat swelling red (food color) AdvReac Intermediate Nausea and Verified 04/19/25 10:18 Vomiting Vital Signs Vital Signs - 24 hr 04/19/25 06:54 04/19/25 07:46 04/19/25 09:57 Temperature 98.1 F Pulse Rate 114 H 87 Respiratory Rate 18 11 L Blood Pressure 127/90 125/97 H Pulse Oximetry 99 100 95 Oxygen Delivery Room Air Room Air 04/19/25 10:20 04/19/25 11:05 04/19/25 11:15 Temperature 97 F L Pulse Rate 86 107 H 105 H Respiratory Rate 18 23 H 16 Blood Pressure 141/94 H 134/90 142/93 H Pulse Oximetry 100 96 98 Oxygen Delivery Room Air Room Air Room Air 04/19/25 11:25 04/19/25 12:00 Temperature 96.5 F L Pulse Rate 99 84 Respiratory Rate 18 18 Blood Pressure 144/100 H 126/87 Pulse Oximetry 97 99 Oxygen Delivery Room Air Exam Const: General: comfortable and no acute distress Other: , female, modestly ill-appearing HENMT: Face/Nose/Sinus: Normal nares present Mouth: Yes moist mucous membranes Eyes: General: appearance normal, both eyes and all related structures Sclera: sclerae normal Pupils: Equal, round and reactive pupils present EOM: EOMs intact bilaterally Resp: Effort & Inspection: normal respiratory effort Auscultation: clear to auscultation bilaterally Cardio: Rate: regular rate Rhythm: regular rhythm Other: S1-S2 present without murmur, rub, ectopy GI: Other: Diffuse abdominal tenderness. Abdomen soft, nondistended. Hyperactive bowel sounds in all quadrants. Skin: General skin exam: normal color and no rashes or lesions noted Wounds: no wounds Neuro: Speech: normal speech Motor exam (neuro): 5/5 motor strength present throughout Sensory Exam: normal sensation Other: A&O x4 Extrem: General: normal to inspection Psych: Mental Status: mental status grossly normal Affect: normal affect Other: Good insight and judgment, pleasant H&P: Results Labs Labs: Short CBC 04/19/25 Range/Units 07:42 WBC 6.2 (4.5-10.0) K/mm3 Hgb 13.5 (12.0-15.0) g/dL Hct 40.6 (37.0-47.0) % Plt Count 307 (150-375) k/mm3 BMP 04/19/25 07:42 Sodium 138 Potassium 3.2 L Chloride 108 H Carbon Dioxide 21 L BUN 5 L Creatinine 0.71 Glucose 95 Calcium 9.4 Cardiac Enzymes 04/19/25 Range/Units 07:42 Troponin I < 0.012 (0.000-0.034) ng/mL Liver Function 04/19/25 Range/Units 07:42 Total Bilirubin 0.7 (0.2-1.3) mg/dL AST 26 (14-36) U/L ALT 20 (6-35) U/L Alkaline Phosphatase 68 (38-126) U/L Albumin 4.2 (3.5-5.1) g/dL Assessment and Plan Assessment and plan (1) Dysphagia: Qualifiers: Dysphagia type: unspecified Qualified Code(s): R13.10 - Dysphagia, unspecified Code(s): R13.10 - Dysphagia, unspecified Status: Acute Assessment and Plan: - GI consulted, Lino provided the following recs: EGD ordered Keep patient NPO -> now okay to have regular diet post-EGD Patient will need more aggressive pain management as she is still having 8-9/10 pain after 0.5 mg of hydromorphone IV PPI BID Continue Carafate elixir after EGD Continue supportive care Based on EGD findings will consider performing previously ordered small-bowel follow-through - EGD, : The esophagus was examined in the mucosa was normal with a normal Z-line and no ulcers or masses. There was evidence of prior gastric bypass, with no evidence of ulcers, polyps, or neoplastic lesions. Multiple cold forceps biopsies were taken from the mid and distal esophagus and from the gastric pouch. Efferent jejunal loop within normal limits. - pain management (2) Epigastric abdominal pain: Code(s): R10.13 - Epigastric pain Status: Acute Assessment and Plan: - see above - pain management (3) Chronic diarrhea: Code(s): K52.9 - Noninfective gastroenteritis and colitis, unspecified Status: Acute Assessment and Plan: - chronic since first gastric surgery - DDx: Bile acid diarrhea versus malabsorption versus pancreatic insufficiency. - GI recommended starting cholestyramine daily. Discussed colonoscopy as outpatient once upper GI issues have been addressed. (4) Hypokalemia: Code(s): E87.6 - Hypokalemia Status: Acute Assessment and Plan: - K 3.2 - initial repletion with KCl 40 PO, recheck in AM - monitor Plan Diet: NPO GI Prophylaxis: Ppi b.i.d., Carafate post EGD DVT Prophylaxis: SCDs IV fluids: LR 150 mL/hour x1 L Lines/Tubes: Peripheral IV Code Status: Full code Quality VTE Prophylaxis VTE prophylaxis: mechanical ordered Hospitalist [facility] Advance Care Plan I have confirmed that the patient's Advanced Care Plan is present, code status is documented, or surrogate decision maker is listed in patient medical record.: Yes Medication Reconciliation I have utilized all available resources to obtain, update and review the patients current medications (includes all prescriptions, OTC, herbals, cannabis, and nutritional supplements).: Yes
--- NOTE | 2025-04-19 13:21 | ADMGEN ---
This patient, Niyah Shay, was admitted to [facility] Surg Room 305-02. Patient/family oriented to hospital policies and general routines including ID bracelet, bed and alarms, visiting hours, pain management, procedures, bathroom and other care routines, personal items, smoking policy, room service/diet, and visiting hours. Information on how to activate the Rapid Response Team has been discussed. Patient/Family are encouraged to report perceived risks to care and to ask questions if they do not understand what they are told or what they should do.
[2025-04-19] MEDS: HYDROmorphone HCL INJ (*CRX) 2 MG/ML VIAL 1 MG IV PUSH ×2 (16:04→21:08)
[2025-04-19] MEDS: SUCRALFATE 1 GM TABLET PO ×2 (16:05→21:08)
[2025-04-20] MEDS: oxyCODONE HCL (*CRX) 2.5 MG TAB IR PO ×2 (00:12→13:51)
[2025-04-20] MEDS: oxyCODONE/ACETAMINOPHEN (*CRX) 5-325 MG TABLET 1 TABLET PO ×3 (00:13→15:01)
[2025-04-20] MEDS: HYDROmorphone HCL INJ (*CRX) 2 MG/ML VIAL 1 MG IV PUSH ×3 (03:51→12:29)
[2025-04-20] MEDS: ONDANSETRON INJ 4 MG/2 ML VIAL IV PUSH ×3 (03:52→15:01)
[2025-04-20 06:00] VITALS: BP 106/70; PULSE 94; RESP 18; TEMP 36.6; O2SAT 95
[2025-04-20] MEDS: SUCRALFATE SUSP 100 MG/ML 10 ML UDC 1000 MG PO ×2 (06:04→12:24)
[2025-04-20 06:27] LABS: Basophils Percent Auto 0.7 % (0.2-1.2); Eosinophils Absolute Auto 0.1 K/mm3 (0-0.3); Hematocrit 38.8 % (37.0-47.0); Hemoglobin 12.4 g/dL (12.0-15.0); Immature Granulocyte Absolute 0.01 K/mm3 (0.00-0.031); Immature Granulocyte Percent A 0.2 % (0-0.5); Lymphocytes Absolute Auto 2.07 K/mm3 (0.9-3.2); Lymphocytes Percent Auto 44.9 % (18.3-44.2); Mean Corpuscular Hemoglobin 30.5 pg (26-34); Mean Corpuscular Volume 95.3 fl (80-100); Mean Platelet Volume 9.8 fl (7.4-10.4); Monocytes Absolute Auto 0.3 K/mm3 (0.1-0.6); Monocytes Percent Auto 6.5 % (2.6-8.5); Neutrophils Absolute Auto 2.1 K/mm3 (1.3-6.7); Neutrophils Percent Auto 45.7 % (45.5-73.1); Platelet Count Result 281 k/mm3 (150-375); Red Blood Count 4.07 M/mm3 (4.2-5.4); Red Cell Distribution Width 12.5 % (11.5-14.5); White Blood Count 4.6 K/mm3 (4.5-10.0)
[2025-04-20 06:46] LABS: Alanine Aminotransferase 32 U/L (6-35); Albumin Level 3.8 g/dL (3.5-5.1); Alkaline Phosphatase 76 U/L (38-126); Anion Gap 7 mmol/L (4-12); Aspartate Amino Transferase 53 U/L (14-36); Blood Urea Nitrogen 3 mg/dL (7-17); Calcium 9.2 mg/dL (8.4-10.2); Carbon Dioxide 24 mmol/L (22-30); Chloride 108 mmol/L (98-107); Estimated CRCL calculation 103 ml/min; Estimated Glomerular Filt Rate > 60; Glucose 90 mg/dL (65-110); Potassium 3.3 mmol/L (3.4-5.0); Sodium 139 mmol/L (137-145); Total Protein 6.4 g/dL (6.3-8.2)
[2025-04-20] MEDS: PANTOPRAZOLE SODIUM IV 40 MG VIAL IV PUSH (08:49)
[2025-04-20] MEDS: clonazePAM (*CRX) 0.5 MG TABLET 2 MG PO (09:06)
[2025-04-20] MEDS: buPROPion HCL SR (12HR) 100 MG TABCR 200 MG PO (09:06)
[2025-04-20] MEDS: GABAPENTIN 300 MG CAPSULE 600 MG PO ×2 (09:07→12:24)
[2025-04-20] MEDS: CHOLESTYRAMINE LIGHT 4 GM POWD.PACK PO (09:11)
[2025-04-20] MEDS: ACETAMINOPHEN 325 MG TABLET 650 MG PO (09:13)
[2025-04-20] MEDS: POTASSIUM CHLORIDE 20 MEQ PACKET (FOR LIQUID) 40 MEQ PO (09:22)
[2025-04-20 13:46] VITALS: BMI 28.8
[2025-04-20 14:00] VITALS: BP 115/81; PULSE 86; RESP 14; TEMP 36.3; O2SAT 97
--- NOTE | 2025-04-20 14:15 | P.DS_ITS ---
DS: Admitting Diagnosis Discharge Date 04/20/2025 Admitting Diagnosis Dysphagia/epigastric pain DS: Discharge Diagnosis Discharge Diagnosis (1) Dysphagia: Qualifiers: Dysphagia type: unspecified Qualified Code(s): R13.10 - Dysphagia, unspecified Code(s): R13.10 - Dysphagia, unspecified Status: Acute (2) Epigastric abdominal pain: Code(s): R10.13 - Epigastric pain Status: Acute (3) Chronic diarrhea: Code(s): K52.9 - Noninfective gastroenteritis and colitis, unspecified Status: Acute (4) Hypokalemia: Code(s): E87.6 - Hypokalemia Status: Acute DS: Summary Hospital Course Reason for hospitalization: Dysphagia/Gastric pain Hospital Course: Admission: Patient was a 45 y/o F with PMH of perforated stomach ulcer (2019), 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 The patient had presented to the ED with complaints of worsening painful swallowing and epigastric pain. She was initially evaluated by GI on 04/14. At this appointment she reported this is been ongoing for the past 6 months pain with swallowing, food getting stuck, and epigastric pain that has been progressively worsening. Pain has caused difficulty with eating. She also reports associated sensation of food becoming stuck in her esophagus, 30 lb of weight loss over the last 4 months, nausea with p.o. intake, chronic diarrhea (has been ongoing since her initial gastric surgery), and voice changes described as hoarseness. She has a significant gastric surgical history including gastric bypass surgery in 2012 with significant complications. She reports during her initial surgery part of her stomach was nicked causing a bile leakage requiring 3 separate surgeries during that hospital admission. She reports approximately 12 total abdominal surgeries also including a cholecystectomy, gastric bypass revision, perforated gastric ulcer repair, and most recent surgery in August of 2024 was done at [facility] to untangle her bowels and adhesiolysis. She also has a history of alcohol abuse, has been sober for 1 year and half. She had an outpatient EGD ordered and was started on Carafate elixir, and from Famotidine and Protonix changed to omeprazole 40 mg b.i.d. She now returns today as the pain has become too severe. She continues to report constant nausea without vomiting. Epigastric pain and dysphagia occurring with solid foods, liquids, pills, water. She has a family history of colon cancer, grandmother, no further GI cancers noted. Hospital course: patient was admitted to the medical unit and evaluated by GI at which time they placed orders for EGD in pain management with PPI b.i.d. and Carafate. patient that evening was taken down for EGD findings in the EGD showed mucosa with a normal Z-line no ulcers or masses, no evidence of polyps or neoplastic lesions and EGD did take mid and distal esophagus biopsies per GI patient was stable for discharged home in good follow-up in their clinic may resume her previous diet. labs reviewed she did have potassium of 3.3 which was replenished with 40 mEq otherwise unremarkable and vital stable. I encourage patient on bland small frequent meals and to follow-up in the clinic as indicated. Patient was discharged home acknowledged and agreed with discharge plan. Status at Discharge Functional status at discharge: independent ambulation Overall status at discharge: patient is progressing back to baseline Time Spent with Patient Time attestation: Total time spent providing and/or coordinating discharge services: Time spent: Greater than 30 minutes Exam Const: General: comfortable and no acute distress Other: , female, modestly ill-appearing HENMT: Face/Nose/Sinus: Normal nares present Mouth: Yes moist mucous membranes Eyes: General: appearance normal, both eyes and all related structures Sclera: sclerae normal Pupils: Equal, round and reactive pupils present EOM: EOMs intact bilaterally Resp: Effort & Inspection: normal respiratory effort Auscultation: clear to auscultation bilaterally Cardio: Rate: regular rate Rhythm: regular rhythm Other: S1-S2 present without murmur, rub, ectopy GI: Other: Diffuse abdominal tenderness. Abdomen soft, nondistended. Hyperactive bowel sounds in all quadrants. Skin: General skin exam: normal color and no rashes or lesions noted Wounds: no wounds Neuro: Cranial nerves: Yes Equal, round and reactive pupils present Speech: normal speech Motor exam (neuro): 5/5 motor strength present throughout Sensory Exam: normal sensation Other: A&O x4 Extrem: General: normal to inspection Psych: Mental Status: mental status grossly normal Affect: normal affect Other: Good insight and judgment, pleasant DS: Data Data Completed and Pending Completed studies during hospitalization: Pending at discharge 04/19/25 10:59 Surgical [PTH] Routine Labs on day of discharge: Labs from last 24 hours 04/20/25 05:35 WBC 4.6 RBC 4.07 L Hgb 12.4 Hct 38.8 MCV 95.3 MCH 30.5 MCHC 32.0 RDW 12.5 Plt Count 281 MPV 9.8 Immature Gran % (Auto) 0.2 Neut % (Auto) 45.7 Lymph % (Auto) 44.9 H Doniphan % (Auto) 6.5 Eos % (Auto) 2.0 Baso % (Auto) 0.7 Lymph # (Auto) 2.07 [place]han # (Auto) 0.3 Eos # (Auto) 0.1 Baso # (Auto) 0.0 Abs Immat Gran (auto) 0.01 Absolute Neuts (auto) 2.1 Absolute Nucleated RBC 0.000 Nucleated RBC % 0.0 Sodium 139 Potassium 3.3 L Chloride 108 H Carbon Dioxide 24 Anion Gap 7 BUN 3 L Creatinine 0.64 L Estim Creat Clear Calc 103 Estimated GFR > 60 Glucose 90 Calcium 9.2 Total Bilirubin 1.0 AST 53 H ALT 32 Alkaline Phosphatase 76 Total Protein 6.4 Albumin 3.8 Discharge Plan Discharge Attending physician on discharge: Surya Harding Consulting providers: David Luna; Alexandra Samano; Josselin Huynh; Beatriz Vick; Manohar Knutson; Julio Reeves; Joni Cisneros Discharging Clinician: Alexandra Samano Anticipated Discharge Date/Time: 04/20/25 14:00 Patient Disposition: Home Activity: as tolerated Diet: as tolerated Discharge Instructions: * Follow-up with GI as needed information provided * May resume previous diet * I have prescribed pantoprazole and Carafate to help with the discomfort * For your Chronic diarrhea I have prescribed Cholestyramine as well as an oral potassium supplement. How can you care for yourself at home? ? Keep track of any new symptoms or changes in your symptoms. ? Rest until you feel better. ? Be safe with medicines. Take your medicines exactly as prescribed. Call your doctor if you think you are having a problem with your medicine. ? Do not drive after taking a prescription pain medicine. ? Ensure to follow-up with primary care physician as indicated and provide updated medication list provided to you at discharge. When should you call for help? Call 911 anytime you think you may need emergency care. For example, call if: ? You passed out (lost consciousness). Call your doctor now or seek immediate medical care if: ? You have new symptoms like fever, difficulty breathing, Chest pain, vomiting, or rash. ? You have new or different pain. ? You are confused and are having trouble thinking clearly. ? Your symptoms are getting worse. Watch closely for changes in your health, and be sure to contact your doctor if: ? You do not get better as expected. Patient Instructions: Antibiotic Form, Soft Diet (GEN), Chronic Diarrhea (DC), Nutrition after Bariatric Surgery (DC), Dysphagia (GEN), GI (Gastrointestinal) Soft Diet (GEN) Patient Language: Polish Stand Alone Forms: General Discharge Information Follow-up/Referrals: David Luna MD [Physician] - Call for Appointment Randy Antonio MD [Primary Care Provider] - 2 Weeks Discharge Medications: New Prevalite 4 gram Powder In Packet 4 g PO QAM@1000 Qty: 30 0RF oxycodone 5 mg capsule 5 mg PO Q8H PRN (Reason: pain) Qty: 20 0RF potassium chloride [Klor-Con M20] 20 mEq tablet,ER particles/crystals 20 meq PO DAILY Qty: 30 0RF Continued omeprazole 40 mg capsule,delayed release(DR/EC) 40 mg PO BID Qty: 60 3RF gabapentin 600 mg tablet 600 mg PO TID trazodone 50 mg tablet 50 - 150 mg PO HS PRN (Reason: Insomnia) tizanidine 4 mg tablet 4 mg PO TID PRN (Reason: FIBROMYALGIA) rizatriptan 10 mg tablet,disintegrating 10 mg PO DAILY PRN (Reason: Headache) cyanocobalamin (vitamin B-12) 1,000 mcg/mL solution 1,000 mcg IM Q1M ferrous sulfate 325 mg (65 mg iron) tablet 325 mg PO BID clonazepam 2 mg tablet 2 mg PO BID ergocalciferol (vitamin D2) 1,250 mcg (50,000 unit) capsule 50,000 unit PO WEEKLY ondansetron 4 mg tablet,disintegrating 4 mg PO Q4-6H PRN (Reason: Nausea And Vomiting) bupropion HCl 200 mg tablet sustained-release 12 hr 200 mg PO BID ondansetron 4 mg tablet,disintegrating 4 mg PO Q8H PRN (Reason: nausea and vomiting) Qty: 14 0RF medroxyprogesterone 150 mg/mL syringe 150 mg IM [id number] acetaminophen [Tylenol] 325 mg Capsule 650 mg PO Q4-6H PRN (Reason: Pain) quetiapine 25 mg tablet 25 mg PO HS PRN (Reason: insomnia) sucralfate 100 mg/mL suspension 1 g PO ACHS Qty: 1000 3RF Discontinued oxycodone-acetaminophen 7.5-325 mg tablet 1 tablet PO TID PRN (Reason: pain) Date of admission: 04/19/25 08:51 Primary Care Provider: Randy Antonio Admitting Provider: Surya Harding Attending physician on admission: Surya Harding Condition: Stable Quality VTE Prophylaxis VTE prophylaxis: mechanical ordered -Patient's previous records reviewed on admission -ER notes reviewed in detail on admission -discussed all findings and current treatment plan with patient/Family/POA -Consultations reviewed for recommendations -Patient's disposition for safe discharge discussed with case liner Dictation performed by Chomp direct speech recognition software, therefore electrical power station technician variants and typographical errors may occur. Hospitalist MIPS Heart Failure (Exclusion) Patient has history of Heart Transplant or Left Ventricular Assistive Device?: No IF YES, STOP HERE Heart Failure (Qualifier) Patient has current or prior documentation of LVEF less than or equal to 40%, or mod/servere depressed LVSF?: No IF NO, STOP HERE
== END 2025-04-20 15:25 | disposition home or self-care (01) ==
LOC: ANHED 08:44 → ANH3MEDSUR 09:44
PROVIDERS: Internal Medicine Gastroenterology; Student in an Organized Health Care Education/Training Program; Admitting Provider General Practice; Emergency Provider Emergency Medicine; PCP Pediatrics; Visit Provider General Practice
PROC: 0DJ08ZZ Inspection of Upper Intestinal Tract, Via Natural or Artificial Opening Endoscopic (ICD-10-PCS; CPT 43239; principal; 2025-04-19 11:15)
DX: R13.10 Dysphagia, unspecified (principal); R10.13 Epigastric pain; K52.9 Noninfective gastroenteritis and colitis, unspecified; E87.6 Hypokalemia; Z98.84 Bariatric surgery status; R49.0 Dysphonia; R63.0 Anorexia; R63.4 Abnormal weight loss; Z68.28 Body mass index [BMI] 28.0-28.9, adult; K21.9 Gastro-esophageal reflux disease without esophagitis; F10.11 Alcohol abuse, in remission; F17.210 Nicotine dependence, cigarettes, uncomplicated; F17.290 Nicotine dependence, other tobacco product, uncomplicated; M79.7 Fibromyalgia; F41.9 Anxiety disorder, unspecified; F32.A Depression, unspecified; Z79.899 Other long term (current) drug therapy; Z87.11 Personal history of peptic ulcer disease
CPT/HCPCS: 43239; 36415; 71046; 80053; 83690; 84484; 85025; 88305; 93005; 96361; 96374; 96375; 96376; 99285; A9270; G0378; G0379; J1171; J2003; J2405; J2470; J2704; J7120

== ENCOUNTER 2025-05-26 08:36 | Outpatient (CLI) | payer OTHER, SELFPAY ==
--- NOTE | ~2025-05-26 | XR_ITS ---
EXAMINATION: XR UGI w small bowel DATE: 05/26/2025 10:39 INDICATION: Bilateral upper abdominal pain, esophageal spasms and dysphagia TECHNIQUE: The patient drank thick barium, gas-producing crystals, and thin barium. Conventional supi ne abdomen radiographs and fluoroscopic spot radiographs of the esophagus, stomach, and proximal smal l bowel were obtained. Additional overhead radiographs were obtained during the transit through the s mall bowel. A total of 556 fluoroscopic spot images and 7 overhead radiographs were obtained. Fluoros copy exposure time was 1.2 minutes. Total DAP was 138.946 Gycm^2. COMPARISON: None. FINDINGS: [employer] images demonstrate cholecystectomy clips in right upper quadrant. The esophagus is normal witho ut mass or stricture. Esophageal motility is normal. There is no hiatal hernia. Postoperative change of prior gastric bypass procedure with rapid transit of contrast through the stomach and through the gastrojejunal anastomosis. There was no gastroesophageal reflux with provocative maneuvers. It should be noted however that the rapid passage of contrast across the gastrojejunal anastomosis there was a given time only relatively minimal contrast within the stomach.. Gaseous extension of the excluded p ortion the stomach which is positioned below the medial aspect of the left hemidiaphragm. Transit nuria e from the stomach to proximal colon was approximately 45 minutes. There is normal caliber and mucosa l fold pattern throughout the small bowel. Terminal ileum is normal. IMPRESSION: 1. Postoperative change of prior gastric bypass procedure. Otherwise unremarkable upper GI and small bowel follow-through study. Reviewed, dictated and finalized at location A. IMPRESSION: 1. Postoperative change of prior gastric bypass procedure. Otherwise unremarkab le upper GI and small bowel follow-through study.
--- OUTSIDE RECORDS SUMMARY | 2025-05-26 08:38 | XMS_ITS | Clinical Summary ---
Author Organization [facility] Address [facility] [place] [address] Care Team Providers Care Mission Commander Name Role Phone Randy Antonio MD Primary Care Provider [phone] Allergies Active Allergy Reactions Criticality Noted Date [...] Problem Noted Date Diagnosed Date Intentional overdose ([facility]) 3 Drug overdose, intentional, initial encounter ([facility]) 05/13/2023 Immunizations Immunization Administration Dates Next Due PFIZER [...] place to sleep or slept in a penitentiary (including now)? Patient refused 05/17/2023 Comments No Sex and Gender Information Value Date Recorded Sex Assigned at Female 12/20/2024 3:05 PM GENERAL I FARMWORKER Legal Sex Female 6:15 PM CDT Gender Identity Not on file Sexual Orientation Not on file Last Filed Vital Signs Vital Sign Reading Time Taken Comments Blood Pressure 118/94 12/20/2024 3:03 PM GENERAL I FARMWORKER Pulse 118 12/20/2024 3:03 PM GENERAL I FARMWORKER Temperature 36 C (96.8 F) 12/20/2024 3:03 PM GENERAL I FARMWORKER Respiratory Rate 18 12/20/2024 3:03 PM GENERAL I FARMWORKER Oxygen Saturation 98% 12/20/2024 3:03 PM GENERAL I FARMWORKER Inhaled Oxygen Concentration - - Weight 86.2 kg (190 lb) 12/20/2024 3:03 PM GENERAL I FARMWORKER Height 167.6 cm (5' 6) 12/20/2024 3:03 PM GENERAL I FARMWORKER Body Mass Index 30.67 12/20/2024 3:03 PM GENERAL I FARMWORKER Plan of Treatment Health Maintenance Due Date [...] Every 5 Years 2011 Cervical Cancer Screening [facility] HPV 2011 Mammogram Screening 2021 COVID-19 Vaccine [...] and discharge planning Lifestyle No Marisol Chow, RN Insurance [employer] Advance Directives * Full Code (Latest Code Status on File) Date Activated Date Inactivated Comments 05/13/2023 12:39 AM 05/22/2023 6:40 PM Care Teams Mission Commander Relationship Specialty Start Date End Date Randy Antonio MD [address] [place] [address] PCP - General PEDIATRICS 05/02/22
--- OUTSIDE RECORDS SUMMARY | 2025-05-26 08:38 | XMS_ITS ---
Author Organization [facility] [place], [place] Address [address] [place], [place] [address] Care Team Providers Care Correctional Security Officer Name Role Phone BRAYDON NOLASCO Primary Care Provider Jarrett Segovia Unavailable [phone] REASON FOR VISIT 7. TPI'S THROACIC AND LUMBAR PARASPINAL MUSCLES right sided mid back, low back Encounters Encounter Location Date Provider Diagnosis Rachael Weems [address] [address] 12/15/2023 Jarrett Flowers PLAN OF TREATMENT No Information History and Physical Notes * HPI (History of Present Illness) Category Sub-Category Detail Notes Category Not es Chronic Pain The pain began many, years [...]
--- OUTSIDE RECORDS SUMMARY | 2025-05-26 08:38 | XMS_ITS | Patient Health Record ---
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 2012
--- OUTSIDE RECORDS SUMMARY | 2025-05-26 08:38 | XMS_ITS ---
Author Organization [facility], [place] Address [address] [place], [place] [address] Care Team Providers Care Structural Metal Fabricator Apprentice Name Role Phone BRAYDON NOLASCO Primary Care Provider Jarrett Segovia Unavailable [phone] REASON FOR VISIT APPOINTMENTS CANCELLED Encounters Encounter Location Date Provider Diagnosis [address] [address] 12/03/2023 Jarrett Flowers PLAN OF TREATMENT No Information
--- OUTSIDE RECORDS SUMMARY | 2025-05-26 08:39 | XMS_ITS ---
Author Organization [facility], [place] Address [address] [place], [place] [address] Care Team Providers Care Water Systems Engineer Name Role Phone BRAYDON NOLASCO Primary Care Provider Jarrett Segovia Unavailable [phone] REASON FOR VISIT 1b. Follow Up Encounters Encounter Location Date Provider Diagnosis Rachael [address] [address] 01/05/2024 Jarrett Flowers PLAN OF TREATMENT No Information
--- OUTSIDE RECORDS SUMMARY | 2025-05-26 08:39 | XMS_ITS | Clinical Summary ---
Author Organization [facility] Address [address] [place] [address] Care Team Providers Care Smoking Tobacco Packer Hand Name Role Phone Justin Antonio MD Primary Care Provider [phone] [facility],non-owned Affiliates and Associated Physician Practices is amultiple site organization consisting of ambulatory clinics and hospital sitesin [place], [place], [place] and [place]. This disclosure is being madepursuant to the Care Everywhere program and may not contain all information available regarding this patient. Last updated 18.[facility] Allergies Active Allergy Reactions Criticality Noted Date [...] Active vitamin D, ergocalciferol, (Drisdol) 1.25 MG (96618 UT) capsule Take 1 (one) capsule by [...] on file Legal Sex Female 9:11 AM STEMHOLE BORER AND TOPPER Gender Identity Not on file Sexual Orientation Not on file Last Filed Vital Signs Vital Sign Reading Time Taken Comments Blood Pressure 110/78 09/24/2024 8:22 AM STEMHOLE BORER AND TOPPER Pulse 90 09/24/2024 8:22 AM STEMHOLE BORER AND TOPPER Temperature 36.1 C (97 F) 09/24/2024 8:22 AM STEMHOLE BORER AND TOPPER Respiratory Rate 18 09/03/2024 7:41 AM CDT Oxygen Saturation 97% 09/24/2024 8:22 AM STEMHOLE BORER AND TOPPER Inhaled Oxygen Concentration - - Weight 88.7 kg (195 lb 9.6 oz) 09/24/2024 8:22 A M STEMHOLE BORER AND TOPPER Height 167.6 cm (5' 6) 09/24/2024 8:22 AM STEMHOLE BORER AND TOPPER Body Mass Index 31.57 09/24/2024 8:22 AM STEMHOLE BORER AND TOPPER Plan of Treatment Health Maintenance Due Date Last Done Comments LIPID TESTING 1981 MAMMOGRAM 1981 HEPATITIS C SCREENING 03/20/1999 DTAP/TDAP/TD VACCINES (1 - Tdap) 2000 HEPATITIS B VACCINE (1 of 3 - 19+ 3-dose series) 2000 PAP SMEAR 2002 HPV VACCINE (1 - 3-dose SCDM series) 2008 COVID-19 VACCINE ( season) 2024 04/03/2021, 03/12/2021 DEPRESSION SCREENING 11/17/2024 INFLUENZA VACCINE (#1) 2025 10/28/2017, 2016 SCREENING FOR DIABETES 09/03/2027 , 09/03/2024, 09/03/2024, [...] - 145 mmol/L 09/03/2024 5:26 AM CDT [facility] Potassium 4.3 3.5 - 5.1 mmol/L 09/03/2024 5:26 AM CDT [facility] Chloride 108(H) 98 - 107 mmol/L 09/03/2024 5:26 AM CDT [facility] CO2 20(L) 22 - 29 mmol/L 09/03/2024 5:26 AM CDT [facility] Calcium 8.8 8.4 - 10.4 mg/dL 09/03/2024 5:26 AM CDT [facility] Anion Gap 6 6 - 16 mmol/L 09/03/2024 5:26 AM CDT [facility] BUN 5(L) 5.3 - 18.7 mg/dL 09/03/2024 5:26 AM CDT [facility] Creatinine 0.66 0.57 - 1.11 mg/dL 09/03/2024 5:26 AM CDT [facility] eGFR by CKD-EPI >90 >=90 mL/min/1.7 3 m2 09/03/2024 5:26 AM CDT [facility] Blood BLOOD SPECIMEN / Unknown Venipuncture / Unknown 09/03/2024 4:41 AM CDT 09/03/2024 4:47 AM CDT Cameron Clifton MD LAB - CHEMISTRY ORDERABLES F inal Result Performing Organization Address [facility] Co de Phone Number [facility] [address] [place], [place] [phone] * HIV-1 HIV-2 ANTIBODY + HIV P24 AG PANEL (08/08/2022 6:18 PM CDT) HIV1/2 Ab + P24 Ag Non Reactive Non Reactive 08/08/2022 7:15 PM CDT [facility] Blood BLOOD SPECIMEN / Unknown Venipuncture / Unknown 08/08/2022 6:18 PM CDT 08/08/2022 6:25 PM CDT Narrative [facility] - 08/08/2022 7:15 PM CDT No Laboratory evidence of HIV infection. Liana Hui MD LAB - CHEMISTRY ORDERABLES Fin al Result Performing Organization Address [facility] Co de Phone Number [facility] [address] [place] [address] from Last 3 Months or Most Recently Relevant to Health Maintenance Insurance [facility] SELF PAY NO INSURANCE Member Subscriber Plan / Payer (Ef fective for All Dates) Name:Sveta Cheek Member ID:Not on file Relation to Subscriber:Not on file Name:SVETA CHEEK Subscriber ID:Not on file (Home) Address: [address] [place] [address] Payer ID:Not on file Group ID:Not on file Type:Self Pay Address: [place], [place] MEDICAID [employer] [place] Advance Directives [...] 5:01 AM 09/12/2020 7:41 PM Care Teams Smoking Tobacco Packer Hand Relationship Specialty Start Date End Date Justin Antonio MD [address] [place] [address] PCP - General 10/15/18
--- OUTSIDE RECORDS SUMMARY | 2025-05-26 08:39 | XMS_ITS | Referral Summary ---
Author Organization [facility] Jarrod Guevara Address [address] [place] [address] Care Team Providers Care Trigonometry Tutor Name Role Phone Randy Antonio MD Primary Care Provider [phone] Allergies Active Allergy Reactions Criticality Noted Date [...] 12/18/2021 Assessment & Plan (12/18/2021 5:37 PM SWEATBAND MAKER): Will obtain additional labs looking for other connective tissue diseases that were not known at the time of diagnosis. H/O gastric bypass 12/18/2021 Assessment & Plan (12/18/2021 5:37 PM SWEATBAND MAKER): Need to obtain routine labs to rule [...] on file Legal Sex Female 8:58 AM SWEATBAND MAKER Gender Identity Not on file Sexual Orientation [...] Plan of Treatment Not on file Insurance [facility] CHOICE PLUS [facility] H[facility]/PPO Address: [facility] [address] [place] [address] [facility] Address: [address] [address] [place] [address] Advance Directives For more information, please contact: [phone] * Full Code (Latest Code Status on File) Date Activated Date Inactivated Comments 02/27/2022 11:29 AM 03/02/2022 8:13 PM Care Teams Trigonometry Tutor Relationship Specialty Start Date End Date Randy Antonio MD [address] [place] [address] PCP - General Pediatrics 01/05/24
--- OUTSIDE RECORDS SUMMARY | 2025-05-26 08:39 | XMS_ITS | Clinical Summary ---
Author Organization [facility] Jarrod Guevara Address [address] [place] [address] Care Team Providers Care Money Room Teller Name Role Phone Randy Antonio MD Primary Care Provider [phone] Allergies Active Allergy Reactions Criticality Noted Date [...] 12/18/2021 Assessment & Plan (12/18/2021 5:37 PM ENVELOPE ADJUSTER): Will obtain additional labs looking for other connective tissue diseases that were not known at the time of diagnosis. H/O gastric bypass 12/18/2021 Assessment & Plan (12/18/2021 5:37 PM ENVELOPE ADJUSTER): Need to obtain routine labs to rule [...] on file Legal Sex Female 8:58 AM ENVELOPE ADJUSTER Gender Identity Not on file Sexual Orientation [...] patient's age to complete this topic Insurance [facility] CHOICE PLUS CHOICE PLUS Advance Directives For more information, please contact: [phone] * Full Code (Latest Code Status on File) Date Activated Date Inactivated Comments 02/27/2022 11:29 AM 03/02/2022 8:13 PM Care Teams Money Room Teller Relationship Specialty Start Date End Date Randy Antonio MD [address] [place] [address] PCP - General Pediatrics 01/05/24
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
--- OUTSIDE RECORDS SUMMARY | 2025-05-26 08:40 | XMS_ITS | Patient Health Record ---
Author Organization [facility] Address [address] [place] [address] Care Team Providers Care Diesel Mechanic Helper Name Role Phone Catrachita Crandall Primary Care Provider [phone] Reason For Referral No Information Plan Of Treatment No Information Insurance Providers Payer Name Payer Address Payer Phone Subscriber Number Group Number Insured Name Patient Relationship to Insured Coverage Start Date Coverage End Date [facility] Attn Claims Department [address] [place] [address] [id number] Niyah Shay Self - patient is the insured 3
== END 2025-05-26 08:37 | disposition home or self-care (01) ==
PROVIDERS: PCP Pediatrics; Visit Provider Nurse Practitioner
DX: K21.9 Gastro-esophageal reflux disease without esophagitis (principal); R07.89 Other chest pain; R10.13 Epigastric pain; R13.10 Dysphagia, unspecified; R49.0 Dysphonia; Z87.11 Personal history of peptic ulcer disease; Z98.84 Bariatric surgery status
CPT/HCPCS: 74240; 74248